=== PATIENT | female | born 1940 | race Caucasian/White ===

== ENCOUNTER 2016-09-09 14:37 | Emergency (ER) | payer OTHER ==
[~2016-09-09] VITALS: Ht 170.2 cm; Wt 78.0 kg
[~2016-09-09 14:37] MED LIST: AMIO200T33 PO; ASPI-231 PO; CLOP75TA41 PO; DIG025T PO; GABA300C8 PO; METF-312 PO; NOR10T PO
[2016-09-09 15:04] VITALS: BP 143/81
== END 2016-09-09 16:59 | disposition home or self-care (01) ==
LOC: ER 14:42
DX: L02.92 Furuncle, unspecified (principal); M19.90 Unspecified osteoarthritis, unspecified site; E11.9 Type 2 diabetes mellitus without complications; E78.5 Hyperlipidemia, unspecified; I10 Essential (primary) hypertension; F17.210 Nicotine dependence, cigarettes, uncomplicated; Z98.61 Coronary angioplasty status

== ENCOUNTER 2022-10-07 12:43 | Inpatient (IN) | payer OTHER ==
[~2022-10-07] VITALS: Ht 167.6 cm; Wt 63.6 kg
[~2022-10-07 12:43] MED LIST changes: -ASPI-231 PO; +ASPI1TAB20 PO; -CLOP75TA41 PO; +CLOP75TA70 PO; +GABA-1250 PO; -GABA300C8 PO; -METF-312 PO; +METF-370 PO
[2022-10-07 13:46] LABS: Basophils # (auto) 0.1 10 ^3/uL (0-0.2); Basophils % (auto) 1.4 % (0.0-2.0); Eosinophils # (auto) 0.1 10 ^3/uL (0-0.8); Eosinophils % (auto) 2.7 % (0.0-7.0); Hematocrit 48.9 % (36.0-46.0); Hemoglobin 16.2 g/dL (12.2-16.2); Lymphocytes # (auto) 0.9 10 ^3/uL (0.4-5.4); Mean Corpuscular Hemoglobin 31.8 pg (28.0-32.0); Mean Corpuscular Hgb Conc. 33.2 g/dL (32.0-36.0); Mean Corpuscular Volume 95.7 fL (80.0-100.0); Monocytes # (auto) 0.4 10 ^3/uL (0-1.3); Monocytes % (auto) 8.8 % (0.0-12.0); Neutrophils # (auto) 3.6 10 ^3/uL (1.6-8.6); Neutrophils % (auto) 70.1 % (37.0-80.0); Nucleated Red Blood Cells % 0.2 %; Red Blood Cells 5.11 10^6/uL (4.0-5.20); Red Cell Distribution Width 14.1 % (11.8-14.3); White Blood Cell 5.1 10^3/uL (4.4-10.8)
[2022-10-07 14:00] LABS: Albumin 3.6 g/dL (3.4-5.0); Calcium 8.6 mg/dL (8.5-10.1); Magnesium 2.6 mg/dL (1.6-2.6); Potassium 4.4 mmol/L (3.5-5.1)
[2022-10-07 14:02] LABS: INR 1.14 (0.9-1.15); Partial Thromboplastin Time 28.6 SEC (24.5-34.5)
[2022-10-07 14:03] LABS: BUN/Creatinine Ratio 12.8 (10.0-20.0); Bilirubin, Total 0.7 mg/dL (0.2-1.0); Total Protein 6.6 g/dL (6.4-8.2)
[2022-10-07] MEDS ORDERED: methylPREDNISolone SOD SUCC 40 MG/ML VL IV ONE (15:00)
[2022-10-07] MEDS ORDERED: IPRATROPIUM BROM 0.5 MG/2.5ML INH SOL NEB ONE (15:00)
[2022-10-07] MEDS ORDERED: SODIUM CHLORIDE 0.9% 1,000 ML IV ONE (15:00)
[2022-10-07] MEDS ORDERED: ALBUTEROL SULF 2.5 MG/0.5ML(0.5%) NEB SOLN NEB ONE (15:00)
[2022-10-07] MEDS ORDERED: HYDROcodone-ACET 5/325MG TAB PO PRN (15:30)
[2022-10-07] MEDS ORDERED: DOCUSATE SOD 100 MG CAP PO PRN (15:30)
[2022-10-07] MEDS ORDERED: NITROGLYCERIN 0.4 MG SL TAB SL PRN (15:30)
[2022-10-07] MEDS ORDERED: ONDANSETRON HCL 4 MG/2 ML VIAL IV PRN (15:30)
[2022-10-07] MEDS ORDERED: predniSONE 20 MG TAB PO ONE (15:30)
[2022-10-07] MEDS ORDERED: MORPHINE SULFATE INJ 2 MG/ml SYRG IV PRN (15:30)
[2022-10-07] MEDS ORDERED: ACETAMINOPHEN 325 MG TAB PO PRN (15:30)
[2022-10-07] MEDS ORDERED: GABAPENTIN 300 MG CAP PO SCH (22:00)
[2022-10-07] MEDS: HYDROcodone-ACET 10/325MG TAB PO PRN (22:02)
[2022-10-07] MEDS: SODIUM CHLOR 0.9% PF (SALINE LOCK) 10ML VIAL/SYR IV SCH (22:02)
[2022-10-08] MEDS: SODIUM CHLOR 0.9% PF (SALINE LOCK) 10ML VIAL/SYR IV SCH ×2 (05:53→13:40)
[2022-10-08] MEDS ORDERED: ENOXAPARIN SOD 40 MG/0.4 ML SYRINGE SC SCH (10:00)
[2022-10-08] MEDS ORDERED: AMIODARONE HCL 200 MG TAB PO SCH (10:00)
[2022-10-08] MEDS ORDERED: CLOPIDOGREL BISULFATE 75 MG TAB PO SCH (10:00)
[2022-10-08] MEDS ORDERED: DIGOXIN 0.25 MG TAB PO SCH (10:00)
[2022-10-08] MEDS ORDERED: ASPirin-EC 81 mg tab PO SCH (10:00)
[2022-10-08] MEDS: HYDROcodone-ACET 10/325MG TAB PO PRN (12:23)
[2022-10-08 16:00] VITALS: BP 143/65
== END 2022-10-08 17:50 | disposition home health service (06) | DRG 313 ==
LOC: EDBD 12:43 → ER 12:43 → TELE 16:38
PROVIDERS: ADMIT Internal Medicine; ATTEND Internal Medicine
DX: R07.89 Other chest pain (principal); J44.1 Chronic obstructive pulmonary disease with (acute) exacerbation; I25.10 Atherosclerotic heart disease of native coronary artery without angina pectoris; I11.0 Hypertensive heart disease with heart failure; I50.9 Heart failure, unspecified; I35.0 Nonrheumatic aortic (valve) stenosis; Z82.49 Family history of ischemic heart disease and other diseases of the circulatory system; Z87.891 Personal history of nicotine dependence; Z95.5 Presence of coronary angioplasty implant and graft
CPT/HCPCS: 36415; 70450; 71045; 80053; 83735; 83880; 84484; 85025; 85610; 85730; 93005; 93306; 94640; 96360; G0378; J2405

== ENCOUNTER 2023-03-25 13:08 | Inpatient (IN) | payer OTHER ==
[2023-03-25] VITALS (7 sets, daily range): BP systolic 99–117; BP diastolic 50–61; PULSE 87–173; RESP 18–30; TEMP 98.2; O2SAT 90–99
[~2023-03-25] VITALS: Ht 170.2 cm; Wt 129.5 kg
[2023-03-25 16:02] LABS: Basophils # (auto) 0 10 ^3/uL (0-0.2); Basophils % (auto) 0.8 % (0.0-2.0); Eosinophils # (auto) 0 10 ^3/uL (0-0.8); Hematocrit 46.3 % (36.0-46.0); Hemoglobin 15.4 g/dL (12.2-16.2); Lymphocytes # (auto) 0.3 10 ^3/uL (0.4-5.4); Lymphocytes % (auto) 5.2 % (10.0-50.0); Mean Corpuscular Hemoglobin 32.3 pg (28.0-32.0); Mean Corpuscular Hgb Conc. 33.2 g/dL (32.0-36.0); Mean Corpuscular Volume 97.2 fL (80.0-100.0); Monocytes # (auto) 0.7 10 ^3/uL (0-1.3); Monocytes % (auto) 11.6 % (0.0-12.0); Neutrophils # (auto) 4.8 10 ^3/uL (1.6-8.6); Neutrophils % (auto) 82.4 % (37.0-80.0); Nucleated Red Blood Cells % 0.3 %; Red Blood Cells 4.76 10^6/uL (4.0-5.20); Red Cell Distribution Width 15.3 % (11.8-14.3); White Blood Cell 5.9 10^3/uL (4.4-10.8)
[2023-03-25 16:13] LABS: Alanine Aminotransferase 80 U/L (7-40); Albumin 4.2 g/dL (3.2-4.8); Alkaline Phosphatase 129 U/L (46-116); Anion Gap 7 (5-15); Aspartate Aminotransferase 61 U/L (13-40); BUN/Creatinine Ratio 23.7 (10.0-20.0); Blood Urea Nitrogen 18 mg/dL (9-23); Calcium 9.1 mg/dL (8.5-10.1); Carbon Dioxide 26 mmol/L (20-30); Chloride 106 mmol/L (98-107); Glucose 158 mg/dL (74-106); Potassium 3.8 mmol/L (3.5-5.1); Sodium 139 mmol/L (136-145)
[2023-03-25 16:14] LABS: Bilirubin, Total 0.5 mg/dL (0.2-1.0); Total Protein 6.3 g/dL (5.7-8.2)
[2023-03-25 16:21] LABS: INR 1.15 (0.9-1.15); Partial Thromboplastin Time 30.5 SEC (24.5-34.5)
[2023-03-25] MEDS ORDERED: ALBUTEROL SULF 2.5 MG/0.5ML(0.5%) NEB SOLN HHN ONE (17:00)
[2023-03-25] MEDS ORDERED: methylPREDNISolone SOD SUCC 125 MG/2 ML VL IV ONE (17:00)
[2023-03-25] MEDS ORDERED: IPRATROPIUM BROM 0.5 MG/2.5ML INH SOL HHN ONE (17:00)
[2023-03-25] MEDS ORDERED: AMLO1TAB22 PO (18:14)
[2023-03-25] MEDS ORDERED: OXYB5TAB10 PO (18:14)
[2023-03-25] MEDS ORDERED: GABA-1251 PO (18:14)
[2023-03-25] MEDS ORDERED: ATOR20TA50 PO (18:14)
[2023-03-25] MEDS ORDERED: cefTRIAXone 1GM/50ML D5W 50 ML IV ONE (18:15)
[2023-03-25] MEDS ORDERED: AZITHROMYCIN 500MG/ 250ML 250 ML IV ONE (18:15)
[2023-03-25] MEDS ORDERED: ONDANSETRON HCL 4 MG/2 ML VIAL IV PRN (18:15)
[2023-03-25] MEDS ORDERED: ACETAMINOPHEN 325 MG TAB PO PRN (18:15)
[2023-03-25] MEDS ORDERED: hydrALAZINE HCL 20 MG/ML VL IV PRN (18:30)
[2023-03-25] MEDS ORDERED: METOPROLOL TARTRATE 1MG/1ML-5ML VIAL IV PRN (18:45)
[2023-03-25] MEDS ORDERED: LABETALOL HCL 5 MG/ML 4ML SYRINGE IV PRN (19:00)
[2023-03-25] MEDS ORDERED: MORPHINE SULFATE 4 MG/ML SYR/VIAL IV ONE (19:45)
[2023-03-25] MEDS ORDERED: DexAMETHasone SOD PHOS 10MG/1ML VIAL INJ IV ONE (19:45)
[2023-03-25] MEDS ORDERED: ONDANSETRON HCL 4 MG/2 ML VIAL IV ONE (19:45)
[2023-03-25] MEDS ORDERED: dilTIAZem 25 MG/5 ML VIAL IV ONE ×2 (19:45→21:15)
[2023-03-25] MEDS ORDERED: LORazepam 2MG/ML-1ML VIAL IV ONE (20:15)
[2023-03-25] MEDS ORDERED: FUROSEMIDE 20 MG/2 ML VIAL IV ONE (20:45)
[2023-03-25] MEDS ORDERED: dilTIAZem 125mg/125ml BAG KIT 125 ML IV SCH (21:00)
[2023-03-25] MEDS ORDERED: SODIUM CHLORIDE 0.9% 1,000 ML IV ONE (21:15)
[2023-03-25] MEDS: IPRATROPIUM BROM 0.5 MG/2.5ML INH SOL NEB SCH (21:31)
[2023-03-25] MEDS: LEVALBUTEROL HCL 1.25 MG/3 ML NEB NEB SCH (21:31)
[2023-03-25 21:38] LABS: COVID19 ANTIGEN SOFIA FIA NEGATIVE (NEGATIVE)
[2023-03-25 21:39] LABS: Rapid Influenza A Negative (Negative); Rapid Influenza B Negative (Negative)
[2023-03-25] MEDS ORDERED: ALBUTEROL SULF 2.5 MG/0.5ML(0.5%) NEB SOLN NEB SCH (22:00)
[2023-03-25] MEDS: OXYBUTYNIN CHL 5 MG TAB PO SCH (22:07)
[2023-03-25] MEDS: methylPREDNISolone SOD SUCC 40 MG/ML VL IV SCH (22:07)
[2023-03-25] MEDS ORDERED: IOHEXOL 350 MG/ML 100ML IJ ONE (22:51)
[2023-03-26] VITALS (48 sets, daily range): BP systolic 97–136; BP diastolic 44–72; PULSE 75–101; RESP 13–33; TEMP 97.7–98.7; O2SAT 82–100
[2023-03-26 05:35] LABS: Basophils # (auto) 0 10 ^3/uL (0-0.2); Basophils % (auto) 0.1 % (0.0-2.0); Eosinophils # (auto) 0 10 ^3/uL (0-0.8); Eosinophils % (auto) 0.1 % (0.0-7.0); Hematocrit 46.2 % (36.0-46.0); Hemoglobin 14.7 g/dL (12.2-16.2); Lymphocytes # (auto) 0.1 10 ^3/uL (0.4-5.4); Lymphocytes % (auto) 2.5 % (10.0-50.0); Mean Corpuscular Hemoglobin 32.1 pg (28.0-32.0); Mean Corpuscular Hgb Conc. 31.7 g/dL (32.0-36.0); Monocytes # (auto) 0.2 10 ^3/uL (0-1.3); Neutrophils # (auto) 5.3 10 ^3/uL (1.6-8.6); Neutrophils % (auto) 93.3 % (37.0-80.0); Red Blood Cells 4.57 10^6/uL (4.0-5.20); Red Cell Distribution Width 16.1 % (11.8-14.3); White Blood Cell 5.7 10^3/uL (4.4-10.8)
[2023-03-26 05:39] LABS: Alanine Aminotransferase 62 U/L (7-40); Albumin 3.8 g/dL (3.2-4.8); Alkaline Phosphatase 107 U/L (46-116); Anion Gap 6 (5-15); Aspartate Aminotransferase 39 U/L (13-40); BUN/Creatinine Ratio 11.8 (10.0-20.0); Bilirubin, Total 0.4 mg/dL (0.2-1.0); Blood Urea Nitrogen 10 mg/dL (9-23); Calcium 8.4 mg/dL (8.7-10.4); Carbon Dioxide 22 mmol/L (20-30); Chloride 109 mmol/L (98-107); Glucose 221 mg/dL (74-106); Potassium 4.6 mmol/L (3.5-5.1); Sodium 137 mmol/L (136-145); Total Protein 6.1 g/dL (5.7-8.2)
[2023-03-26] MEDS: methylPREDNISolone SOD SUCC 40 MG/ML VL IV SCH ×3 (06:04→21:19)
[2023-03-26] MEDS: OXYBUTYNIN CHL 5 MG TAB PO SCH ×3 (06:04→21:19)
[2023-03-26] MEDS: IPRATROPIUM BROM 0.5 MG/2.5ML INH SOL NEB SCH ×5 (07:27→22:00)
[2023-03-26] MEDS: LEVALBUTEROL HCL 1.25 MG/3 ML NEB NEB SCH ×5 (07:28→22:00)
[2023-03-26] MEDS ORDERED: amLODIPine BESYLATE 5 MG TAB PO SCH (10:00)
[2023-03-26] MEDS ORDERED: FUROSEMIDE 20 MG/2 ML VIAL IV SCH ×2 (10:00)
[2023-03-26] MEDS ORDERED: ATORVASTATIN 20 MG TAB PO SCH (10:00)
[2023-03-26] MEDS: AZITHROMYCIN 500MG/ 250ML 250 ML IV SCH (10:06)
[2023-03-26] MEDS: cefTRIAXone 1GM/50ML D5W 50 ML IV SCH (10:06)
[2023-03-26] MEDS: GABAPENTIN 400 MG CAP PO SCH (10:07)
[2023-03-26] MEDS: CLOPIDOGREL BISULFATE 75 MG TAB PO SCH (10:07)
[2023-03-26] MEDS: PANTOPRAZOLE 40 MG TAB PO SCH (10:07)
[2023-03-26] MEDS: AMIODARONE HCL 200 MG TAB PO SCH (10:07)
[2023-03-26] MEDS: ASPirin-EC 81 mg tab PO SCH (10:08)
[2023-03-26] MEDS: guaiFENesin 200 MG/10 ML UD GT PRN ×2 (10:09→19:59)
[2023-03-26] MEDS ORDERED: FUROSEMIDE 20 MG/2 ML VIAL IV ONE (11:45)
[2023-03-26] MEDS ORDERED: LIDOCAINE 2% JELLY 11ml (GLYDO) UR ONE (11:45)
[2023-03-26] MEDS ORDERED: NICOTINE 14 MG/24HR TOPICAL PATCH TD ONE (13:30)
[2023-03-26] MEDS ORDERED: ENOXAPARIN SOD 100 MG/1 ML SYRINGE SC ONE ×2 (13:30→22:00)
[2023-03-26] MEDS: HYDROcodone-ACET 5/325MG TAB PO PRN ×2 (14:20→19:59)
[2023-03-26 17:10] LABS: LDL Cholesterol 51 mg/dL (< 100); Triglycerides 81 mg/dL (< 150)
[2023-03-26 17:12] LABS: Cholesterol 106 mg/dL (< 200); HDL Cholesterol 42 mg/dL (40-59)
[2023-03-26] MEDS: FUROSEMIDE 40 MG/4 ML VIAL IV SCH (18:20)
[2023-03-26] MEDS: METOPROLOL TARTRATE 25 MG TAB PO SCH (21:20)
[2023-03-26 21:43] LABS: Urine Bacteria NONE SEEN /hpf (None Seen); Urine Blood Negative /uL (Negative); Urine Clarity Clear (Clear); Urine Color Colorless (Yellow); Urine Hyaline Cast FEW /lpf (0 - 2); Urine Protein, UAD Negative (Negative); Urine Urobilinogen Normal (Negative); Urine WBC <1 /hpf (0 - 5)
[2023-03-26] MEDS ORDERED: ENOXAPARIN SOD 100 MG/1 ML SYRINGE SC SCH (22:00)
[2023-03-27] VITALS (27 sets, daily range): BP systolic 109–156; BP diastolic 57–77; PULSE 75–99; RESP 12–33; TEMP 97.2–99; O2SAT 92–100
[2023-03-27] MEDS: HYDROcodone-ACET 5/325MG TAB PO PRN ×3 (00:40→21:48)
[2023-03-27] MEDS: OXYBUTYNIN CHL 5 MG TAB PO SCH ×3 (05:53→21:35)
[2023-03-27] MEDS: methylPREDNISolone SOD SUCC 40 MG/ML VL IV SCH ×3 (05:55→21:36)
[2023-03-27] MEDS: FUROSEMIDE 40 MG/4 ML VIAL IV SCH ×2 (05:56→18:39)
[2023-03-27] MEDS: LEVALBUTEROL HCL 1.25 MG/3 ML NEB NEB SCH ×5 (06:38→22:56)
[2023-03-27] MEDS: IPRATROPIUM BROM 0.5 MG/2.5ML INH SOL NEB SCH ×5 (06:38→22:56)
[2023-03-27 06:47] LABS: Basophils # (auto) 0 10 ^3/uL (0-0.2); Basophils % (auto) 0.2 % (0.0-2.0); Eosinophils # (auto) 0 10 ^3/uL (0-0.8); Hematocrit 48.8 % (36.0-46.0); Hemoglobin 15.9 g/dL (12.2-16.2); Lymphocytes # (auto) 0.2 10 ^3/uL (0.4-5.4); Lymphocytes % (auto) 2.5 % (10.0-50.0); Mean Corpuscular Hemoglobin 31.9 pg (28.0-32.0); Mean Corpuscular Hgb Conc. 32.6 g/dL (32.0-36.0); Mean Corpuscular Volume 97.9 fL (80.0-100.0); Monocytes # (auto) 0.6 10 ^3/uL (0-1.3); Monocytes % (auto) 6.7 % (0.0-12.0); Neutrophils # (auto) 8.2 10 ^3/uL (1.6-8.6); Neutrophils % (auto) 90.6 % (37.0-80.0); Nucleated Red Blood Cells % 0.2 %; Red Blood Cells 4.98 10^6/uL (4.0-5.20); Red Cell Distribution Width 15.4 % (11.8-14.3); White Blood Cell 9.1 10^3/uL (4.4-10.8)
[2023-03-27 06:56] LABS: Anion Gap 4 (5-15); Carbon Dioxide 32 mmol/L (20-30); Chloride 104 mmol/L (98-107); Potassium 4.1 mmol/L (3.5-5.1); Sodium 140 mmol/L (136-145)
[2023-03-27 07:01] LABS: INR 1.13 (0.9-1.15); Prothrombin Time 11.8 sec (9.3-11.8)
[2023-03-27 07:02] LABS: BUN/Creatinine Ratio 13.7 (10.0-20.0); Blood Urea Nitrogen 10 mg/dL (9-23); Glucose 141 mg/dL (74-106)
[2023-03-27] MEDS ORDERED: DEXTROSE (50%) 50ML SYRG IV PRN (09:15)
[2023-03-27] MEDS: AZITHROMYCIN 500MG/ 250ML 250 ML IV SCH (09:52)
[2023-03-27] MEDS: CLOPIDOGREL BISULFATE 75 MG TAB PO SCH (09:52)
[2023-03-27] MEDS: cefTRIAXone 1GM/50ML D5W 50 ML IV SCH (09:52)
[2023-03-27] MEDS: ASPirin-EC 81 mg tab PO SCH (09:52)
[2023-03-27] MEDS: ATORVASTATIN 20 MG TAB PO SCH (10:00)
[2023-03-27] MEDS: AMIODARONE HCL 200 MG TAB PO SCH (10:01)
[2023-03-27] MEDS: GABAPENTIN 400 MG CAP PO SCH (10:01)
[2023-03-27] MEDS: NICOTINE 14 MG/24HR TOPICAL PATCH TD SCH (10:01)
[2023-03-27] MEDS: METOPROLOL TARTRATE 25 MG TAB PO SCH ×2 (10:01→21:35)
[2023-03-27] MEDS: PANTOPRAZOLE 40 MG TAB PO SCH (10:01)
[2023-03-27] MEDS: InsuLIN REG 1unit/0.01ml Soln (100units/ml) SC SCH ×3 (11:30→23:44)
[2023-03-27] MEDS: ACCU-CHEK COMFORT CURVE STRIP VI SCH ×3 (11:30→23:45)
[2023-03-27] MEDS ORDERED: fentaNYL CITRATE 100 MCG/2 ML VL ONE (15:42)
[2023-03-27] MEDS ORDERED: VERAPAMIL 2.5MG/ML INJ 2ML VIAL IV ONE (15:42)
[2023-03-27] MEDS ORDERED: HEPARIN SODIUM (PORCINE) 5000 UNITS/ML 1ML VIAL ONE (15:42)
[2023-03-27] MEDS ORDERED: ANGIOMAX 250 MG VIAL IV ONE (15:42)
[2023-03-27] MEDS ORDERED: LIDOCAINE 2%HCL (LOCAL ANESTH.) INJ 20ML MDV ONE (15:43)
[2023-03-27] MEDS ORDERED: SODIUM CHL 0.9% 0 ML ONE (15:43)
[2023-03-27] MEDS ORDERED: MIDAZOLAM HCL 2MG/2ML 2ml VIAL (1mg/ml) ONE (15:43)
[2023-03-27] MEDS ORDERED: IODIXANOL 320MG/ML 100ML BTL IV ONE (15:43)
[2023-03-28] VITALS (41 sets, daily range): BP systolic 78–147; BP diastolic 53–84; PULSE 59–160; RESP 14–41; TEMP 97.3–98.4; O2SAT 83–99
[2023-03-28] MEDS ORDERED: HALOPERIDOL LACTATE 5 MG/ML INJ VIAL IM ONE (01:00)
[2023-03-28] MEDS ORDERED: HALOPERIDOL LACTATE 5 MG/ML INJ VIAL ONE (01:04)
[2023-03-28] MEDS ORDERED: LORazepam 2MG/ML-1ML VIAL IV ONE ×2 (03:15→06:45)
[2023-03-28] MEDS: methylPREDNISolone SOD SUCC 40 MG/ML VL IV SCH ×3 (05:58→21:08)
[2023-03-28] MEDS: OXYBUTYNIN CHL 5 MG TAB PO SCH ×3 (06:00→21:08)
[2023-03-28] MEDS: FUROSEMIDE 40 MG/4 ML VIAL IV SCH ×2 (06:00→17:50)
[2023-03-28 06:18] LABS: Base Excess 7.7 mmol/L (-2.0-2.0)
[2023-03-28] MEDS ORDERED: AMIODARONE 450mg/250ml AE 250 ML IV ONE (06:34)
[2023-03-28] MEDS: ACCU-CHEK COMFORT CURVE STRIP VI SCH ×4 (06:41→22:00)
[2023-03-28] MEDS ORDERED: AMIODARONE BOLUS KIT 100 ML IV ONE (06:45)
[2023-03-28] MEDS: InsuLIN REG 1unit/0.01ml Soln (100units/ml) SC SCH ×4 (06:47→21:13)
[2023-03-28] MEDS: AMIODARONE 450mg/250ml AE 250 ML IV SCH ×3 (07:08→12:32)
[2023-03-28] MEDS: cefTRIAXone 1GM/50ML D5W 50 ML IV SCH (09:10)
[2023-03-28] MEDS: AZITHROMYCIN 500MG/ 250ML 250 ML IV SCH (09:10)
[2023-03-28 09:23] LABS: Basophils # (auto) 0 10 ^3/uL (0-0.2); Basophils % (auto) 0.1 % (0.0-2.0); Eosinophils # (auto) 0 10 ^3/uL (0-0.8); Hematocrit 45.1 % (36.0-46.0); Hemoglobin 14.6 g/dL (12.2-16.2); Lymphocytes # (auto) 0.4 10 ^3/uL (0.4-5.4); Lymphocytes % (auto) 6.3 % (10.0-50.0); Mean Corpuscular Hemoglobin 31.6 pg (28.0-32.0); Mean Corpuscular Hgb Conc. 32.4 g/dL (32.0-36.0); Mean Corpuscular Volume 97.6 fL (80.0-100.0); Monocytes # (auto) 0.6 10 ^3/uL (0-1.3); Neutrophils # (auto) 5.8 10 ^3/uL (1.6-8.6); Neutrophils % (auto) 84.6 % (37.0-80.0); Nucleated Red Blood Cells % 0.1 %; Red Blood Cells 4.62 10^6/uL (4.0-5.20); Red Cell Distribution Width 14.8 % (11.8-14.3); White Blood Cell 6.9 10^3/uL (4.4-10.8)
[2023-03-28] MEDS: GABAPENTIN 400 MG CAP PO SCH (09:26)
[2023-03-28] MEDS: ASPirin-EC 81 mg tab PO SCH (09:26)
[2023-03-28] MEDS: CLOPIDOGREL BISULFATE 75 MG TAB PO SCH (09:26)
[2023-03-28] MEDS: ATORVASTATIN 20 MG TAB PO SCH (09:27)
[2023-03-28 09:35] LABS: Chloride 100 mmol/L (98-107); Potassium 3.6 mmol/L (3.5-5.1); Sodium 140 mmol/L (136-145)
[2023-03-28 09:36] LABS: Anion Gap 3 (5-15); Carbon Dioxide 37 mmol/L (20-30)
[2023-03-28 09:37] LABS: Calcium 9.2 mg/dL (8.5-10.1)
[2023-03-28] MEDS: IPRATROPIUM BROM 0.5 MG/2.5ML INH SOL NEB SCH ×5 (09:38→22:00)
[2023-03-28] MEDS: LEVALBUTEROL HCL 1.25 MG/3 ML NEB NEB SCH ×5 (09:38→22:00)
[2023-03-28 09:42] LABS: BUN/Creatinine Ratio 20.2 (10.0-20.0); Blood Urea Nitrogen 17 mg/dL (9-23); Glucose 184 mg/dL (74-106)
[2023-03-28] MEDS: NICOTINE 14 MG/24HR TOPICAL PATCH TD SCH (09:59)
[2023-03-28] MEDS ORDERED: AMIODARONE HCL 200 MG TAB PO SCH (10:00)
[2023-03-28] MEDS: PANTOPRAZOLE 40 MG TAB PO SCH (10:58)
[2023-03-28] MEDS: METOPROLOL TARTRATE 25 MG TAB PO SCH ×2 (11:26→21:08)
[2023-03-28] MEDS ORDERED: LORazepam 2MG/ML-1ML VIAL IV PRN (11:30)
[2023-03-28] MEDS ORDERED: POTASSIUM EFFERVESENT TAB 25 MEQ PO ONE (13:30)
[2023-03-28 15:59] LABS: Urine Bacteria NONE SEEN /hpf (None Seen); Urine Blood 2+ /uL (Negative); Urine Clarity Clear (Clear); Urine Color Yellow (Yellow); Urine Hyaline Cast FEW /lpf (0 - 2); Urine Mucus FEW (None Seen); Urine Protein, UAD TRACE (Negative); Urine Specific Gravity 1.024 (1.001-1.035); Urine Urobilinogen Normal (Negative); Urine WBC 4 /hpf (0 - 5)
[2023-03-28] MEDS: DOCUSATE SOD 100 MG CAP PO PRN (18:34)
[2023-03-28] MEDS: HYDROcodone-ACET 5/325MG TAB PO PRN (21:09)
[2023-03-29] VITALS (26 sets, daily range): BP systolic 131–171; BP diastolic 54–83; PULSE 59–86; RESP 15–29; TEMP 97.5–97.9; O2SAT 82–100
[2023-03-29] MEDS: HYDROcodone-ACET 5/325MG TAB PO PRN ×3 (02:03→21:47)
[2023-03-29] MEDS: AMIODARONE 450mg/250ml AE 250 ML IV SCH (03:45)
[2023-03-29 05:36] LABS: Chloride 101 mmol/L (98-107); Sodium 137 mmol/L (136-145)
[2023-03-29 05:37] LABS: Anion Gap 3 (5-15); Calcium 8.8 mg/dL (8.7-10.4); Carbon Dioxide 33 mmol/L (20-30)
[2023-03-29 05:42] LABS: BUN/Creatinine Ratio 16.9 (10.0-20.0); Blood Urea Nitrogen 11 mg/dL (9-23); Glucose 189 mg/dL (74-106)
[2023-03-29 05:43] LABS: Magnesium 2.6 mg/dL (1.6-2.6)
[2023-03-29] MEDS: FUROSEMIDE 40 MG/4 ML VIAL IV SCH (06:20)
[2023-03-29] MEDS: OXYBUTYNIN CHL 5 MG TAB PO SCH ×3 (06:20→21:47)
[2023-03-29] MEDS: ACCU-CHEK COMFORT CURVE STRIP VI SCH ×4 (06:21→21:41)
[2023-03-29] MEDS: InsuLIN REG 1unit/0.01ml Soln (100units/ml) SC SCH ×4 (06:27→21:41)
[2023-03-29 07:49] LABS: Basophils # (auto) 0 10 ^3/uL (0-0.2); Basophils % (auto) 0.1 % (0.0-2.0); Eosinophils # (auto) 0 10 ^3/uL (0-0.8); Hematocrit 50.5 % (36.0-46.0); Hemoglobin 16.6 g/dL (12.2-16.2); Lymphocytes # (auto) 0.5 10 ^3/uL (0.4-5.4); Lymphocytes % (auto) 7.4 % (10.0-50.0); Mean Corpuscular Hemoglobin 31.7 pg (28.0-32.0); Mean Corpuscular Volume 96.2 fL (80.0-100.0); Monocytes # (auto) 0.7 10 ^3/uL (0-1.3); Monocytes % (auto) 9.5 % (0.0-12.0); Neutrophils # (auto) 5.7 10 ^3/uL (1.6-8.6); Nucleated Red Blood Cells % 0.4 %; Red Blood Cells 5.25 10^6/uL (4.0-5.20); Red Cell Distribution Width 15.3 % (11.8-14.3); White Blood Cell 6.9 10^3/uL (4.4-10.8)
[2023-03-29] MEDS: LEVALBUTEROL HCL 1.25 MG/3 ML NEB NEB SCH ×5 (08:00→23:41)
[2023-03-29] MEDS: IPRATROPIUM BROM 0.5 MG/2.5ML INH SOL NEB SCH ×5 (08:00→23:41)
[2023-03-29] MEDS: methylPREDNISolone SOD SUCC 40 MG/ML VL IV SCH (08:20)
[2023-03-29] MEDS: cefTRIAXone 1GM/50ML D5W 50 ML IV SCH (08:20)
[2023-03-29] MEDS: AZITHROMYCIN 500MG/ 250ML 250 ML IV SCH (08:20)
[2023-03-29] MEDS: PANTOPRAZOLE 40 MG TAB PO SCH (08:24)
[2023-03-29] MEDS: GABAPENTIN 400 MG CAP PO SCH (08:24)
[2023-03-29] MEDS: CLOPIDOGREL BISULFATE 75 MG TAB PO SCH (08:24)
[2023-03-29] MEDS: ATORVASTATIN 20 MG TAB PO SCH (08:24)
[2023-03-29] MEDS: ASPirin-EC 81 mg tab PO SCH (08:24)
[2023-03-29] MEDS: METOPROLOL TARTRATE 25 MG TAB PO SCH ×2 (08:24→21:46)
[2023-03-29] MEDS: DOCUSATE SOD 100 MG CAP PO PRN ×2 (08:51→21:55)
[2023-03-29] MEDS ORDERED: POLYETHYLENE GLYCOL 17 GM PWDR PO PRN (09:00)
[2023-03-29] MEDS: NICOTINE 14 MG/24HR TOPICAL PATCH TD SCH (09:05)
[2023-03-29] MEDS ORDERED: AMIODARONE HCL 200 MG TAB ONE ×2 (09:29→21:49)
[2023-03-29] MEDS ORDERED: POLYETHYLENE GLYCOL 17 GM PWDR ONE (09:29)
[2023-03-29] MEDS: AMIODARONE HCL 200 MG TAB PO SCH ×2 (09:30→21:49)
[2023-03-29] MEDS ORDERED: predniSONE 20 MG TAB PO ONE (09:45)
[2023-03-30] VITALS (10 sets, daily range): BP systolic 144–151; BP diastolic 73–79; PULSE 60–108; RESP 16–20; TEMP 36.6; O2SAT 95–100
[2023-03-30] MEDS: HYDROcodone-ACET 5/325MG TAB PO PRN ×3 (02:08→11:27)
[2023-03-30] MEDS: OXYBUTYNIN CHL 5 MG TAB PO SCH ×2 (06:11→14:00)
[2023-03-30] MEDS: ACCU-CHEK COMFORT CURVE STRIP VI SCH ×2 (06:12→12:52)
[2023-03-30] MEDS: InsuLIN REG 1unit/0.01ml Soln (100units/ml) SC SCH ×2 (06:12→12:52)
[2023-03-30] MEDS: LEVALBUTEROL HCL 1.25 MG/3 ML NEB NEB SCH ×3 (06:56→14:07)
[2023-03-30] MEDS: IPRATROPIUM BROM 0.5 MG/2.5ML INH SOL NEB SCH ×3 (06:56→14:07)
[2023-03-30] MEDS ORDERED: POLYETHYLENE GLYCOL 17 GM PWDR PO ONE (09:15)
[2023-03-30] MEDS ORDERED: CLOPIDOGREL BISULFATE 75 MG TAB ONE (09:19)
[2023-03-30] MEDS ORDERED: AMIODARONE HCL 200 MG TAB ONE (09:19)
[2023-03-30] MEDS ORDERED: GABAPENTIN 400 MG CAP ONE (09:19)
[2023-03-30] MEDS ORDERED: METOPROLOL TARTRATE 25 MG TAB ONE (09:19)
[2023-03-30] MEDS ORDERED: cefTRIAXone 1GM/50ML D5W 50 ML IV ONE (09:20)
[2023-03-30] MEDS ORDERED: PANTOPRAZOLE 40 MG TAB PO ONE (09:20)
[2023-03-30] MEDS ORDERED: AZITHROMYCIN 500MG/ 250ML 250 ML IV ONE (09:20)
[2023-03-30] MEDS ORDERED: ATORVASTATIN 20 MG TAB ONE (09:20)
[2023-03-30] MEDS ORDERED: ASPirin 81 mg TAB ONE (09:20)
[2023-03-30] MEDS ORDERED: POLYETHYLENE GLYCOL 17 GM PWDR ONE (09:52)
[2023-03-30] MEDS: cefTRIAXone 1GM/50ML D5W 50 ML IV SCH (09:57)
[2023-03-30] MEDS: NICOTINE 14 MG/24HR TOPICAL PATCH TD SCH (09:58)
[2023-03-30] MEDS: ATORVASTATIN 20 MG TAB PO SCH (09:59)
[2023-03-30] MEDS: AMIODARONE HCL 200 MG TAB PO SCH (09:59)
[2023-03-30] MEDS: CLOPIDOGREL BISULFATE 75 MG TAB PO SCH (10:00)
[2023-03-30] MEDS: GABAPENTIN 400 MG CAP PO SCH (10:00)
[2023-03-30] MEDS: PANTOPRAZOLE 40 MG TAB PO SCH (10:00)
[2023-03-30] MEDS: METOPROLOL TARTRATE 25 MG TAB PO SCH (10:00)
[2023-03-30] MEDS ORDERED: ASPirin-EC 81 mg tab PO ONE (10:06)
[2023-03-30] MEDS: ASPirin-EC 81 mg tab PO SCH (10:07)
[2023-03-30 10:18] LABS: Basophils # (auto) 0 10 ^3/uL (0-0.2); Basophils % (auto) 0.1 % (0.0-2.0); Eosinophils # (auto) 0 10 ^3/uL (0-0.8); Eosinophils % (auto) 0.1 % (0.0-7.0); Hematocrit 49.4 % (36.0-46.0); Hemoglobin 16.5 g/dL (12.2-16.2); Lymphocytes # (auto) 0.8 10 ^3/uL (0.4-5.4); Lymphocytes % (auto) 11.2 % (10.0-50.0); Mean Corpuscular Hgb Conc. 33.5 g/dL (32.0-36.0); Mean Corpuscular Volume 95.7 fL (80.0-100.0); Monocytes # (auto) 0.9 10 ^3/uL (0-1.3); Monocytes % (auto) 12.8 % (0.0-12.0); Neutrophils # (auto) 5.1 10 ^3/uL (1.6-8.6); Neutrophils % (auto) 75.8 % (37.0-80.0); Nucleated Red Blood Cells % 0.2 %; Red Blood Cells 5.16 10^6/uL (4.0-5.20); Red Cell Distribution Width 14.8 % (11.8-14.3); White Blood Cell 6.8 10^3/uL (4.4-10.8)
[2023-03-30 10:26] LABS: Calcium 9.2 mg/dL (8.5-10.1)
[2023-03-30 10:30] LABS: Glucose 182 mg/dL (74-106)
[2023-03-30 10:31] LABS: BUN/Creatinine Ratio 14.3 (10.0-20.0); Blood Urea Nitrogen 10 mg/dL (9-23)
[2023-03-30 10:36] LABS: Chloride 100 mmol/L (98-107); Potassium 3.6 mmol/L (3.5-5.1)
[2023-03-30 10:46] LABS: Anion Gap 0 (5-15); Carbon Dioxide 37 mmol/L (20-30); Sodium 137 mmol/L (136-145)
[2023-03-30] MEDS: AZITHROMYCIN 500MG/ 250ML 250 ML IV SCH (11:13)
[2023-03-30] MEDS ORDERED: DOCUSATE SOD 100 MG CAP PO ONE (11:26)
[2023-03-30] MEDS ORDERED: HYDROcodone-ACET 5/325MG TAB ONE (11:26)
[2023-03-30] MEDS: DOCUSATE SOD 100 MG CAP PO PRN (11:27)
[2023-03-30] MEDS ORDERED: MET25T PO (12:20)
[2023-03-30] MEDS ORDERED: LACTULOSE 20Gm/30ML SOLN PO ONE (12:30)
[2023-03-30] MEDS ORDERED: LACTULOSE 20Gm/30ML SOLN ONE (12:47)
[2023-03-30] MEDS ORDERED: InsuLIN REG 1unit/0.01ml Soln (100units/ml) ONE (12:47)
== END 2023-03-30 17:58 | disposition home or self-care (01) | DRG 286 ==
LOC: ER 13:08 → EDBD 13:08 → OVERFLOW 18:12 → TELE 22:27 → DOU IN ICU 23:37 → ICU CENTRL 23:55 → DOU IN ICU 03-27 02:56 → TELE-WESTW 03-29 23:13
PROVIDERS: ADMIT Internal Medicine; ATTEND Student in an Organized Health Care Education/Training Program
PROC: 4A023N8 Measurement of Cardiac Sampling and Pressure, Bilateral, Percutaneous Approach (ICD-10-PCS; principal; 2023-03-27)
PROC: B211YZZ Fluoroscopy of Multiple Coronary Arteries using Other Contrast (ICD-10-PCS; 2023-03-27)
PROC: B215YZZ Fluoroscopy of Left Heart using Other Contrast (ICD-10-PCS; 2023-03-27)
DX: I11.0 Hypertensive heart disease with heart failure (principal); I50.43 Acute on chronic combined systolic (congestive) and diastolic (congestive) heart failure; J15.69 Pneumonia due to other Gram-negative bacteria; J96.01 Acute respiratory failure with hypoxia; J15.9 Unspecified bacterial pneumonia; J44.1 Chronic obstructive pulmonary disease with (acute) exacerbation; I25.10 Atherosclerotic heart disease of native coronary artery without angina pectoris; E78.5 Hyperlipidemia, unspecified; F17.210 Nicotine dependence, cigarettes, uncomplicated; I08.3 Combined rheumatic disorders of mitral, aortic and tricuspid valves; N28.1 Cyst of kidney, acquired; Z20.822 Contact with and (suspected) exposure to COVID-19; I48.0 Paroxysmal atrial fibrillation; I27.20 Pulmonary hypertension, unspecified; J43.9 Emphysema, unspecified; M19.90 Unspecified osteoarthritis, unspecified site; E11.51 Type 2 diabetes mellitus with diabetic peripheral angiopathy without gangrene; E11.42 Type 2 diabetes mellitus with diabetic polyneuropathy; Z79.02 Long term (current) use of antithrombotics/antiplatelets; Z80.0 Family history of malignant neoplasm of digestive organs; Z82.49 Family history of ischemic heart disease and other diseases of the circulatory system; Z90.710 Acquired absence of both cervix and uterus; Z95.3 Presence of xenogenic heart valve; Z95.5 Presence of coronary angioplasty implant and graft; I25.2 Old myocardial infarction
CPT/HCPCS: 36415; 70450; 71045; 71275; 80048; 80053; 80061; 81001; 82962; 83036; 83735; 83880; 84443; 84484; 85025; 85379; 85610; 85730; 87040; 87081; 87086; 87426; 87804; 93005; 93306; 94640; 94644; 96361; 96365; 96367; 96375; 96376; 99152; 99291; G0378; J0696; J1100; J1815; J2250; J2405; J3490; J7042; Q9967

== ENCOUNTER → 2023-09-16 | Outpatient (CLI) | payer OTHER ==
[~2023-09-16] MED LIST changes: +AMLO1TAB22 PO; +ATOR20TA50 PO; -DIG025T PO; -GABA-1250 PO; +GABA-1251 PO; +MET25T PO; +OXYB5TAB14 PO
== END | disposition home or self-care (01) ==
LOC: Rad HDHVI 15:33
PROVIDERS: ATTEND Internal Medicine Cardiovascular Disease
DX: I70.203 Unspecified atherosclerosis of native arteries of extremities, bilateral legs (principal); M79.606 Pain in leg, unspecified
CPT/HCPCS: 93925

== ENCOUNTER → 2023-09-18 | Outpatient (CLI) | payer OTHER ==
[~2023-09-18] VITALS: Ht 170.2 cm; Wt 65.8 kg
[~2023-09-18] MED LIST changes: +ADENOSINE 55 MG in GIVE UN-DILUTED 0 ML IV ONE; +ADENOSINE 90 MG/30 ML INJ IV ONE
== END | disposition home or self-care (01) ==
LOC: Rad HDHVI 14:04
PROVIDERS: ATTEND Internal Medicine Cardiovascular Disease
DX: I25.10 Atherosclerotic heart disease of native coronary artery without angina pectoris (principal); I10 Essential (primary) hypertension; I48.91 Unspecified atrial fibrillation; E78.5 Hyperlipidemia, unspecified; R07.89 Other chest pain; E11.9 Type 2 diabetes mellitus without complications
CPT/HCPCS: 78452; 93005; 96374; 96375; A9500; J0153

== ENCOUNTER → 2023-09-23 | Outpatient (CLI) | payer OTHER ==
[~2023-09-23] MED LIST changes: -ADENOSINE 55 MG in GIVE UN-DILUTED 0 ML IV ONE; -ADENOSINE 90 MG/30 ML INJ IV ONE
== END | disposition home or self-care (01) ==
LOC: Rad HDHVI 15:33
PROVIDERS: ATTEND Internal Medicine Cardiovascular Disease
DX: I08.8 Other rheumatic multiple valve diseases (principal); I10 Essential (primary) hypertension
CPT/HCPCS: 93306

== ENCOUNTER 2023-10-04 22:39 | Inpatient (IN) | payer OTHER ==
[~2023-10-04] VITALS: Ht 170.2 cm; Wt 70.1 kg
[2023-10-04 23:03] LABS: Basophils # (auto) 0.1 10 ^3/uL (0-0.2); Basophils % (auto) 0.8 % (0.0-2.0); Eosinophils # (auto) 0.3 10 ^3/uL (0-0.8); Eosinophils % (auto) 3.6 % (0.0-7.0); Hematocrit 47.6 % (36.0-46.0); Hemoglobin 15.8 g/dL (12.2-16.2); Lymphocytes # (auto) 1.1 10 ^3/uL (0.4-5.4); Lymphocytes % (auto) 13.2 % (10.0-50.0); Mean Corpuscular Hemoglobin 31.2 pg (28.0-32.0); Mean Corpuscular Hgb Conc. 33.2 g/dL (32.0-36.0); Mean Corpuscular Volume 93.9 fL (80.0-100.0); Monocytes # (auto) 0.7 10 ^3/uL (0-1.3); Monocytes % (auto) 8.3 % (0.0-12.0); Neutrophils # (auto) 6.4 10 ^3/uL (1.6-8.6); Neutrophils % (auto) 74.1 % (37.0-80.0); Red Blood Cells 5.07 10^6/uL (4.0-5.20); Red Cell Distribution Width 15.6 % (11.8-14.3); White Blood Cell 8.6 10^3/uL (4.4-10.8)
[2023-10-04 23:19] LABS: INR 1.07 (0.9-1.15); Partial Thromboplastin Time 25.4 SEC (24.5-34.5); Prothrombin Time 11.3 sec (9.3-11.8)
[2023-10-04 23:42] LABS: Alanine Aminotransferase 16 U/L (7-40); Albumin 4.4 g/dL (3.2-4.8); Alkaline Phosphatase 102 U/L (46-116); Anion Gap 9 (5-15); Aspartate Aminotransferase 17 U/L (13-40); BUN/Creatinine Ratio 14.8 (10.0-20.0); Blood Urea Nitrogen 12 mg/dL (9-23); Calcium 10.2 mg/dL (8.5-10.1); Carbon Dioxide 23 mmol/L (20-30); Chloride 110 mmol/L (98-107); Glucose 106 mg/dL (74-106); Magnesium 2.1 mg/dL (1.6-2.6); Potassium 4.1 mmol/L (3.5-5.1); Sodium 142 mmol/L (136-145)
[2023-10-04 23:43] LABS: Bilirubin, Total 0.7 mg/dL (0.2-1.0); Total Protein 7.1 g/dL (5.7-8.2)
[2023-10-04 23:50] VITALS: PULSE 80; RESP 16
[2023-10-05] VITALS (9 sets, daily range): BP systolic 114–150; BP diastolic 62–80; PULSE 80–95; RESP 14–18; TEMP 97.5–97.9; O2SAT 93–97
[2023-10-05] MEDS: ACETAMINOPHEN 325 MG TAB PO ONE (00:52)
[2023-10-05] MEDS: NITROGLYCERIN 0.4 MG SL TAB SL ONE (01:05)
[2023-10-05] MEDS: GLUCAGON EMERG KIT 1mg/1ml IM ONE (01:06)
[2023-10-05] MEDS ORDERED: DOCUSATE SOD 100 MG CAP PO PRN (07:15)
[2023-10-05] MEDS ORDERED: HYDROcodone-ACET 5/325MG TAB PO PRN (07:15)
[2023-10-05] MEDS ORDERED: MORPHINE SULFATE INJ 2 MG/ml SYRG IV PRN ×2 (07:15→08:00)
[2023-10-05] MEDS ORDERED: hydrALAZINE HCL 20 MG/ML VL IV PRN (07:15)
[2023-10-05] MEDS ORDERED: ACETAMINOPHEN 325 MG TAB PO PRN (07:15)
[2023-10-05] MEDS ORDERED: ONDANSETRON HCL 4 MG/2 ML VIAL IV PRN (07:15)
[2023-10-05] MEDS ORDERED: DEXTROSE (50%) 50ML SYRG IV PRN (07:30)
[2023-10-05 07:50] LABS: Basophils # (auto) 0.1 10 ^3/uL (0-0.2); Basophils % (auto) 0.7 % (0.0-2.0); Eosinophils # (auto) 0.1 10 ^3/uL (0-0.8); Eosinophils % (auto) 0.6 % (0.0-7.0); Hematocrit 46.8 % (36.0-46.0); Hemoglobin 15.4 g/dL (12.2-16.2); Lymphocytes # (auto) 0.6 10 ^3/uL (0.4-5.4); Lymphocytes % (auto) 7.8 % (10.0-50.0); Mean Corpuscular Hemoglobin 30.8 pg (28.0-32.0); Mean Corpuscular Hgb Conc. 32.9 g/dL (32.0-36.0); Mean Corpuscular Volume 93.5 fL (80.0-100.0); Monocytes # (auto) 0.5 10 ^3/uL (0-1.3); Monocytes % (auto) 5.8 % (0.0-12.0); Neutrophils # (auto) 6.7 10 ^3/uL (1.6-8.6); Neutrophils % (auto) 85.1 % (37.0-80.0); Nucleated Red Blood Cells % 0.2 %; Red Cell Distribution Width 15.2 % (11.8-14.3); White Blood Cell 7.8 10^3/uL (4.4-10.8)
[2023-10-05] MEDS ORDERED: NITROGLYCERIN 0.4 MG SL TAB SL PRN (08:00)
[2023-10-05 08:12] LABS: Alanine Aminotransferase 11 U/L (7-40); Albumin 4.3 g/dL (3.2-4.8); Alkaline Phosphatase 107 U/L (46-116); Anion Gap 7 (5-15); Aspartate Aminotransferase 13 U/L (13-40); BUN/Creatinine Ratio 17.1 (10.0-20.0); Bilirubin, Total 1.1 mg/dL (0.2-1.0); Blood Urea Nitrogen 12 mg/dL (9-23); Calcium 10.1 mg/dL (8.5-10.1); Carbon Dioxide 25 mmol/L (20-30); Chloride 107 mmol/L (98-107); Glucose 91 mg/dL (74-106); Potassium 3.8 mmol/L (3.5-5.1); Sodium 139 mmol/L (136-145); Total Protein 6.9 g/dL (5.7-8.2)
[2023-10-05] MEDS: ASPirin 81 mg TAB PO SCH (10:00)
[2023-10-05] MEDS: METOPROLOL TARTRATE 25 MG TAB PO SCH (10:00)
[2023-10-05] MEDS: ACCU-CHEK COMFORT CURVE STRIP VI SCH (11:30)
[2023-10-05] MEDS: InsuLIN REG 1unit/0.01ml Soln (100units/ml) SC SCH (11:30)
[2023-10-05] MEDS: FUROSEMIDE 40 MG/4 ML VIAL IV SCH (11:44)
[2023-10-05] MEDS: SODIUM CHLOR 0.9% PF (SALINE LOCK) 10ML VIAL/SYR IV SCH (14:00)
[2023-10-05] MEDS: amLODIPine BESYLATE 5 MG TAB PO ONE (18:31)
[2023-10-05] MEDS: ATORVASTATIN 20 MG TAB PO SCH (21:41)
[2023-10-06 01:00] VITALS: BP_SYST 146; BP_SYST 159; BP_DIAS 69; BP_DIAS 86; PULSE 63; PULSE 66; RESP 16; RESP 18; TEMP 97.7; TEMP 98.2; O2SAT 92; O2SAT 97
[2023-10-06 05:00] VITALS: BP 124/63; PULSE 74; RESP 19; TEMP 98.1; O2SAT 94
[2023-10-06 06:34] LABS: Basophils # (auto) 0.1 10 ^3/uL (0-0.2); Eosinophils # (auto) 0.2 10 ^3/uL (0-0.8); Eosinophils % (auto) 3.2 % (0.0-7.0); Hematocrit 49.6 % (36.0-46.0); Hemoglobin 16.7 g/dL (12.2-16.2); Lymphocytes % (auto) 16.1 % (10.0-50.0); Mean Corpuscular Hemoglobin 31.2 pg (28.0-32.0); Mean Corpuscular Hgb Conc. 33.6 g/dL (32.0-36.0); Mean Corpuscular Volume 92.9 fL (80.0-100.0); Monocytes # (auto) 0.8 10 ^3/uL (0-1.3); Monocytes % (auto) 11.9 % (0.0-12.0); Neutrophils # (auto) 4.3 10 ^3/uL (1.6-8.6); Neutrophils % (auto) 67.8 % (37.0-80.0); Red Blood Cells 5.33 10^6/uL (4.0-5.20); Red Cell Distribution Width 14.9 % (11.8-14.3); White Blood Cell 6.3 10^3/uL (4.4-10.8)
[2023-10-06 06:51] LABS: Alanine Aminotransferase 14 U/L (7-40); Albumin 4.2 g/dL (3.2-4.8); Alkaline Phosphatase 104 U/L (46-116); Anion Gap 4 (5-15); Aspartate Aminotransferase 17 U/L (13-40); BUN/Creatinine Ratio 18.8 (10.0-20.0); Blood Urea Nitrogen 15 mg/dL (9-23); Calcium 9.8 mg/dL (8.5-10.1); Carbon Dioxide 27 mmol/L (20-30); Chloride 105 mmol/L (98-107); Glucose 112 mg/dL (74-106); Potassium 3.7 mmol/L (3.5-5.1); Sodium 136 mmol/L (136-145)
[2023-10-06 06:52] LABS: Total Protein 6.7 g/dL (5.7-8.2)
[2023-10-06 08:00] VITALS: PULSE 86; RESP 18; O2SAT 96
[2023-10-06 09:08] VITALS: BP 127/67; PULSE 81; RESP 17; TEMP 98.2; O2SAT 96
[2023-10-06] MEDS: amLODIPine BESYLATE 5 MG TAB PO SCH (09:09)
[2023-10-06 12:24] VITALS: BP 127/67; PULSE 81
== END 2023-10-06 13:45 | disposition home or self-care (01) | DRG 291 ==
LOC: ER 22:39 → EDBD 22:39 → TELE 10-05 08:00 → TELE-WESTW 10-05 08:59
PROVIDERS: ADMIT Nurse Practitioner Family; ATTEND Nurse Practitioner Family
DX: I11.0 Hypertensive heart disease with heart failure (principal); I50.33 Acute on chronic diastolic (congestive) heart failure; J44.1 Chronic obstructive pulmonary disease with (acute) exacerbation; I25.10 Atherosclerotic heart disease of native coronary artery without angina pectoris; R13.10 Dysphagia, unspecified; E11.65 Type 2 diabetes mellitus with hyperglycemia; E78.00 Pure hypercholesterolemia, unspecified; F17.210 Nicotine dependence, cigarettes, uncomplicated; K22.2 Esophageal obstruction; I25.2 Old myocardial infarction; Z95.5 Presence of coronary angioplasty implant and graft; Z90.710 Acquired absence of both cervix and uterus; Z95.2 Presence of prosthetic heart valve; Z80.0 Family history of malignant neoplasm of digestive organs; Z82.49 Family history of ischemic heart disease and other diseases of the circulatory system
CPT/HCPCS: 36415; 71045; 80053; 82962; 83735; 83880; 84484; 85025; 85610; 85730; 93005; G0378; J2405

== ENCOUNTER 2024-01-16 15:37 | Emergency (ER) | payer OTHER ==
[~2024-01-16] VITALS: Ht 170.2 cm; Wt 64.5 kg
[2024-01-16 16:37] VITALS: BP 113/54; PULSE 89; RESP 16; TEMP 98.2; O2SAT 95
[2024-01-16] MEDS ORDERED: CEPH500C PO (16:55)
== END 2024-01-16 17:17 | disposition home or self-care (01) ==
LOC: ER 15:37
DX: S81.812A Laceration without foreign body, left lower leg, initial encounter (principal); M19.90 Unspecified osteoarthritis, unspecified site; I25.10 Atherosclerotic heart disease of native coronary artery without angina pectoris; F17.290 Nicotine dependence, other tobacco product, uncomplicated; E11.9 Type 2 diabetes mellitus without complications; I11.0 Hypertensive heart disease with heart failure; I50.9 Heart failure, unspecified; J44.9 Chronic obstructive pulmonary disease, unspecified; F17.210 Nicotine dependence, cigarettes, uncomplicated; Z79.82 Long term (current) use of aspirin; Z79.84 Long term (current) use of oral hypoglycemic drugs; Z90.710 Acquired absence of both cervix and uterus; Z79.899 Other long term (current) drug therapy; V09.9XXA Pedestrian injured in unspecified transport accident, initial encounter; Y93.89 Activity, other specified; Y92.89 Other specified places as the place of occurrence of the external cause; Y99.8 Other external cause status
CPT/HCPCS: 12002

== ENCOUNTER 2024-01-23 15:12 | Emergency (ER) | payer OTHER ==
[~2024-01-23] VITALS: Ht 170.2 cm; Wt 63.6 kg
[~2024-01-23 15:12] MED LIST changes: +CEPH500C PO
[2024-01-23 15:20] VITALS: BP 144/72; PULSE 104
[2024-01-23] MEDS: methylPREDNISolone SOD SUCC 125 MG/2 ML VL IV ONE (15:47)
[2024-01-23 16:30] LABS: COVID19 ANTIGEN SOFIA FIA NEGATIVE (NEGATIVE)
[2024-01-23] MEDS: ALBUTEROL SULF 2.5 MG/0.5ML(0.5%) NEB SOLN NEB ONE (16:38)
[2024-01-23 16:39] VITALS: RESP 20; O2SAT 92
[2024-01-23] MEDS: IPRATROPIUM BROM 0.5 MG/2.5ML INH SOL NEB ONE (16:39)
[2024-01-23 16:41] LABS: Basophils # (auto) 0.1 10 ^3/uL (0-0.2); Basophils % (auto) 0.6 % (0.0-2.0); Eosinophils # (auto) 0 10 ^3/uL (0-0.8); Eosinophils % (auto) 0.3 % (0.0-7.0); Hematocrit 48.8 % (36.0-46.0); Hemoglobin 16.4 g/dL (12.2-16.2); Lymphocytes # (auto) 0.4 10 ^3/uL (0.4-5.4); Lymphocytes % (auto) 5.3 % (10.0-50.0); Mean Corpuscular Hemoglobin 32.5 pg (28.0-32.0); Mean Corpuscular Hgb Conc. 33.7 g/dL (32.0-36.0); Mean Corpuscular Volume 96.5 fL (80.0-100.0); Monocytes # (auto) 0.7 10 ^3/uL (0-1.3); Monocytes % (auto) 8.5 % (0.0-12.0); Neutrophils # (auto) 7.2 10 ^3/uL (1.6-8.6); Neutrophils % (auto) 85.3 % (37.0-80.0); Nucleated Red Blood Cells % 0.2 %; Platelet Count (auto) 179 10^3/uL (140-450); Red Blood Cells 5.06 10^6/uL (4.0-5.20); Red Cell Distribution Width 14.9 % (11.8-14.3); White Blood Cell 8.4 10^3/uL (4.4-10.8)
[2024-01-23 16:59] LABS: Alanine Aminotransferase 14 U/L (7-40); Albumin 4.6 g/dL (3.2-4.8); Alkaline Phosphatase 115 U/L (46-116); Anion Gap 6 (5-15); Aspartate Aminotransferase 17 U/L (13-40); BUN/Creatinine Ratio 14.1 (10.0-20.0); Blood Urea Nitrogen 10 mg/dL (9-23); Calcium 9.8 mg/dL (8.7-10.4); Carbon Dioxide 27 mmol/L (20-31); Chloride 108 mmol/L (98-107); Glucose 140 mg/dL (74-106); Potassium 4.1 mmol/L (3.5-5.1); Sodium 141 mmol/L (136-145)
[2024-01-23 17:00] LABS: Bilirubin, Total 1.2 mg/dL (0.2-1.0); Total Protein 6.8 g/dL (5.7-8.2)
[2024-01-23 17:13] LABS: Urine Amorphous Crystal FEW /hpf (None Seen); Urine Bacteria FEW /hpf (None Seen); Urine Blood Negative /uL (Negative); Urine Clarity Turbid (Clear); Urine Color Light-Yellow (Yellow); Urine Protein, UAD Negative (Negative); Urine Specific Gravity 1.015 (1.001-1.035); Urine Urobilinogen Normal (Negative); Urine WBC 3 /hpf (0 - 5); Urine pH 6.5 (5.0-9.0)
[2024-01-23] MEDS ORDERED: FUROSEMIDE 40 MG/4 ML VIAL IV ONE (17:45)
== END 2024-01-23 18:46 | disposition left against medical advice (07) ==
LOC: EDBD 15:12 → ER 15:17
DX: I11.0 Hypertensive heart disease with heart failure (principal); I50.9 Heart failure, unspecified; E11.9 Type 2 diabetes mellitus without complications; F17.210 Nicotine dependence, cigarettes, uncomplicated; F17.290 Nicotine dependence, other tobacco product, uncomplicated; J44.9 Chronic obstructive pulmonary disease, unspecified; M19.90 Unspecified osteoarthritis, unspecified site; Z87.440 Personal history of urinary (tract) infections; Z90.710 Acquired absence of both cervix and uterus; Z98.890 Other specified postprocedural states
CPT/HCPCS: 36415; 71045; 80053; 81001; 83880; 84484; 85025; 87426; 94640; 96374; 99284; J2919

== ENCOUNTER 2024-05-28 16:35 | Inpatient (IN) | payer OTHER ==
[~2024-05-28] VITALS: Ht 165.1 cm; Wt 67.7 kg
--- NOTE | 2024-05-28 17:01 | ED.PDOC ---
HPI Comments 83 y/o F BIBA, with PMHX of COPD, CHF, and HTN presents to the ED for CC palpitations. Per EMS, patient's family members are poor historian and report x3-4 days of malaise. Upon arrival to scene, EMS states that patient was found to be alert with slight disorientation. EKG in route to ED showed A-FIB RVR and ACCU-CHECK read at 216 on glucometer. Per EMS, patient's family comments on new symptoms of weakness and incontinence x1day. No other symptoms or modifying factors at this time. Chief Complaint: Palpitations Time Seen by MD: 16:30 Primary Care Provider: UNKNOWN NAME Reviewed Notes: Nurses Notes, [place] Notes, Medications, Allergies Allergies: Coded Allergies: NO KNOWN ALLERGIES (Unverified , 10/07/22) Home Meds Active Scripts Cephalexin Monohydrate (Cephalexin) 500 Mg Cap, 1 CAP PO TID, #30 CAP Prov:ERCI RENAE 01/16/24 Metoprolol Tartrate (Lopressor) 25 Mg Tb, 25 MG PO BID for 30 Days, #60 TAB Prov:SOLOMON GRACIA MD 03/30/23 Reported Medications Atorvastatin Calcium (ATORVASTATIN CALCIUM) 20 Mg Tab, 1 TAB PO DAILY 03/25/23 Oxybutynin Chloride (Oxybutynin Chloride) 5 Mg Tab, 1 TAB PO TID 03/25/23 Gabapentin (Gabapentin) 400 Mg Cap, CAP PO 03/25/23 Amlodipine Besylate (Amlodipine Besylate) 5 Mg Tab, 1 TAB PO DAILY 03/25/23 Hydrocodone-Acetaminophen (Rogers 10/325MG) 1 Tab Tb, 1 TAB PO QID PRN for MODERATE PAIN, #120 TAB 10/27/14 Aspirin (Aspir-81) 81 Mg Tab, 81 MG PO DAILY, #30 TAB 5 Refills 10/27/14 Metformin Hydrochloride (Metformin Hcl) 500 Mg Tab, 500 MG PO BID, #60 10/27/14 Clopidogrel Bisulfate (CLOPIDOGREL) 75 Mg Tab, 75 MG PO DAILY, #90 10/27/14 Amiodarone Hcl (Amiodarone Hcl) 200 Mg Tab, 200 MG PO DAILY, #30 10/27/14 Information Source: Patient, Emergency Med Personnel Mode of Arrival: EMS Severity: Moderate Timing: Days Duration: Since onset Prehospital treatment: 12 Lead EKG, Accucheck Onset: At Rest Cardiac Risk Factors: HTN PE Risk Factors: None History of: None Modifying Factors: Nothing Associated Signs and Symptoms: None Past Medical History PAST MEDICAL HISTORY: Arthritis, CAD, CHF, COPD, DM, High Lipids, HTN, FL, UTI'S Surgical History: Hysterectomy, PTCA LIVESTOCK COUNTER History: No Pertinent LIVESTOCK COUNTER History, Ectopic Family History Family History: No family hx of HTN Social History Smoker: Cigarettes, Cigar, Less Than 1 Pack/Day Alcohol: Denies ETOH Use Drugs: Denies Drug Use Lives In: Home Constitutional: denies: chills, diaphoresis, fatigue, fever, malaise, sweats, weakness, others EENTM: denies: blurred vision, double vision, ear bleeding, ear discharge, ear drainage, ear pain, ear ringing, eye pain, eye redness, hearing loss, mouth pain, mouth swelling, nasal discharge, nose bleeding, nose congestion, nose pain, photophobia, tearing, throat pain, throat swelling, voice changes, others Respiratory: denies: cough, hemoptysis, orthopnea, SOB at rest, shortness of breath, SOB with excertion, stridor, wheezing, others Cardiovascular: reports: palpitations; denies: chest pain, dizzy spells, diaphoresis, Dyspnea on exertion, edema, irregular heart beat, left arm pain, lightheadedness, PND, syncope, others Gastrointestinal: denies: abdomen distended, abdominal pain, blood streaked bowels, constipated, diarrhea, dysphagia, difficulty swallowing, hematemesis, melena, nausea, poor appetite, poor fluid intake, rectal bleeding, rectal pain, vomiting, others Genitourinary: denies: abnormal vagina bleeding, burning, dyspareunia, dysuria, flank pain, frequency, hematuria, incontinence, pain, , vagina discharge, urgency, others Neurological: denies: dizziness, fainting, headache, left sided numbness, left sided weakness, numbness, paresthesia, pre-existing deficit, right sided numbness, right sided weakness, seizure, speech problems, tingling, tremors, weakness, others Musculoskeletal: denies: back pain, gout, joint pain, joint swelling, muscle pain, muscle stiffness, neck pain, others Integumetry: denies: bruises, change in color, change in hair/nails, dryness, laceration, lesions, lumps, rash, wounds, others Allergic/Immunocompromised: denies: Difficulty Healing, Frequent Infections, Hives, Itching, others Hematologic/Lymphatic: denies: anemia, blood clots, easy bleeding, easy bruising, swollen glands, others Endocrine: denies: excessive hunger, excessive sweating, excessive thirst, excessive urination, flushing, intolerance to cold, intolerance to heat, unexplained weight gain, unexplained weight loss, others Psychiatric: denies: anxiety, bipolar disorder, depression, hopeless, panic disorder, schizophrenia, sleepless, suicidal, others All Other Systems: Reviewed and Negative Physical Exam General Appearance: Moderate Distress HEENT: Normal ENT Inspection, Pharynx Normal, TMs Normal Neck: Full Range of Motion, Non-Tender, Normal, Normal Inspection Respiratory: Chest Non-Tender, Lungs Clear, No Accessory Muscle Use, Respiratory Distress Cardiovascular: Irregular, No Edema, No JVD, No Murmur, No Gallop, Tachycardia Breast Exam: Deferred Gastrointestinal: No Organomegaly, Non Tender, No Pulsatile Mass, Normal Bowel Sounds, Soft Genitalia: Deferred Pelvic: Deferred Rectal: Deferred Extremities: No calf tenderness, Normal capillary refill, Normal inspection, Normal range of motion, Non-tender, No pedal edema Musculoskeletal : Apperance: Normal Neurologic: wood pole treater II-XII nml as Tested, Motor Weakness, No Sensory Deficits, Other (Altered) Cerebellar Function: Unable to Test Reflexes: Normal Skin: Dry, Normal Color, Warm Lymphatic: No Adenopathy EKG EKG : Pulse Rate (adult): 156 [place]: Normal Cardiac Rhythm: Afib Block: None ST: Nonsp Was a procedure done? Was a procedure done?: No CP Differential Dx Differential Diagnosis: A-fib, Angina, FL X-Ray, Labs, Meds, VS Vital Signs Date Time Temp Pulse Resp B/P (MAP) Pulse Ox O2 Delivery O2 Flow Rate FiO2 05/28/24 20:51 148 123/81 05/28/24 19:31 142 05/28/24 19:30 98.1 136 28 112/88 (96) 97 98.1 05/28/24 18:36 135 110/74 05/28/24 18:36 110/74 05/28/24 18:30 136 110/76 05/28/24 17:43 156 26 139/103 (115) 95 05/28/24 17:43 156 26 95 Nasal Cannula* 5 40 05/28/24 17:25 156 139/103 05/28/24 17:24 173 05/28/24 17:22 157 05/28/24 16:47 99.0 148 30 115/59 (77) 96 Lab Test 05/28/24 20:57 05/28/24 18:30 05/28/24 18:19 05/28/24 17:30 Range/Units Lactic Acid Level Pending Troponin I High Sensitivity Pending 333 *H 313 *H </=34 ng/L Influenza Type A Antigen Positive Negative Influenza Type B Antigen Negative Negative SARS-CoV-2 Antigen (Rapid) Negative NEGATIVE White Blood Count 5.1 4.4-10.8 10^3/uL Red Blood Count 5.32 H 4.0-5.20 10^6/uL Hemoglobin 16.2 12.2-16.2 g/dL Hematocrit 51.1 H 36.0-46.0 % Mean Corpuscular Volume 96.1 80.0-100.0 fL Mean Corpuscular Hemoglobin 30.5 28.0-32.0 pg Mean Corpuscular Hemoglobin Concent 31.7 L 32.0-36.0 g/dL Red Cell Distribution Width 15.6 H 11.8-14.3 % Platelet Count 167 140-450 10^3/uL Mean Platelet Volume 9.1 6.9-10.8 fL Neutrophils (%) (Auto) 79.4 37.0-80.0 % Lymphocytes (%) (Auto) 5.4 L 10.0-50.0 % Monocytes (%) (Auto) 13.1 H 0.0-12.0 % Eosinophils (%) (Auto) 0.5 0.0-7.0 % Basophils (%) (Auto) 1.6 0.0-2.0 % Neutrophils # (Auto) 4.1 1.6-8.6 10 ^3/uL Lymphocytes # (Auto) 0.3 L 0.4-5.4 10 ^3/uL Monocytes # (Auto) 0.7 0-1.3 10 ^3/uL Eosinophils # (Auto) 0 0-0.8 10 ^3/uL Basophils # (Auto) 0.1 0-0.2 10 ^3/uL Nucleated Red Blood Cells 0.1 % Sodium Level 140 136-145 mmol/L Potassium Level 4.6 3.5-5.1 mmol/L Chloride Level 104 98-107 mmol/L Carbon Dioxide Level 25 20-31 mmol/L Anion Gap 11 5-15 Blood Urea Nitrogen 59 H 9-23 mg/dL Creatinine 1.45 H 0.550-1.02 mg/dL Glomerular Filtration Rate Calc 36 >90 mL/min BUN/Creatinine Ratio 40.7 H 10.0-20.0 Serum Glucose 163 H 74-106 mg/dL Calcium Level 9.7 8.7-10.4 mg/dL B-Type Natriuretic Peptide Pending Plasma/Serum Blood Alcohol < 3.0 <10 mg/dL Test 05/28/24 17:15 05/28/24 17:14 Range/Units Lactic Acid Level 2.4 *H 0.4-2.0 mmol/L Urine Color Yellow Yellow Urine Clarity Turbid H Clear Urine pH 5.5 5.0-9.0 Urine Specific [place] 1.024 1.001-1.035 Urine Protein 1+ H Negative Urine Ketones Negative Negative Urine Blood Trace H Negative /uL Urine Nitrite Negative Negative Urine Bilirubin Negative Negative Urine Urobilinogen 2 H Negative mg/dL Urine Leukocyte Esterase Negative Negative /uL Urine RBC 2 0 - 4 /hpf Urine Microscopic WBC 3 0-5 /HPF Urine Squamous Epithelial Cells Few <5 /hpf Urine Bacteria None seen None Seen /hpf Urine Hyaline Casts Mod 0 - 2 /lpf Urine Waxy Casts Few 0 /lpf Urine Mucus Few None Seen Urine Glucose Normal Normal mg/dL Urine Opiates Screen Neg NEGATIVE Urine Fentanyl Screen Neg NEGATIVE Urine Barbiturates Screen Neg NEGATIVE Urine Phencyclidine Screen Neg NEGATIVE Urine Amphetamines Screen Neg NEGATIVE Urine Benzodiazepines Screen Neg NEGATIVE Urine Cocaine Screen Neg NEGATIVE Urine Cannabinoids Screen Neg NEGATIVE Current Medications Medications (Trade) Dose Ordered Sig/Keith Route Start Time Stop Time Status Last Admin Sodium Chloride 1,000 ml @ 150 mls/hr Q6H40M ONCE IV 05/28/24 16:45 05/28/24 23:24 05/28/24 18:04 Labetalol HCl (Labetalol HCl) 20 mg ONCE ONCE IV 05/28/24 16:45 05/28/24 16:46 DC 05/28/24 17:25 Furosemide (Lasix Injection) 40 mg ONCE ONCE IV 05/28/24 18:30 05/28/24 18:32 DC 05/28/24 18:36 Metoprolol Tartrate (Lopressor) 5 mg ONCE ONCE IV 05/28/24 18:30 05/28/24 18:32 DC 05/28/24 18:36 Vancomycin HCl 250 ml @ 250 mls/hr ONCE ONCE IV 05/28/24 19:00 05/28/24 19:59 DC 05/28/24 19:17 Ceftriaxone Sodium 50 ml @ 100 mls/hr ONCE ONCE IV 05/28/24 19:00 05/28/24 19:29 DC 05/28/24 20:45 Metoprolol Tartrate (Lopressor) 5 mg ONCE ONCE IV 05/28/24 20:45 05/28/24 20:46 DC 05/28/24 20:51 CXR: FINDINGS: Lines and Tubes: None Lungs: Congestion Pleura: No effusion. No pneumothorax. Cardiomediastinal contours: Unremarkable Bones: Unremarkable IMPRESSION: Pulmonary vascular congestion ATED BY: AB DOS SANTOS MD DICTATED DATE/TIME: 05/28/241805 SIGNED BY: AB DOS SANTOS MD SIGNED DATE/TIME: 05/28/241805 CC: HEAD CT: FINDINGS: Supratentorial Region: No evidence for large acute territorial ischemia. No intracranial hemorrhage is noted. Confluent white matter hypoattenuating foci are noted bilaterally, which typically reflect chronic microvascular ischemic changes. Posterior Fossa: No acute abnormality. Brainstem: Unremarkable. Sellar/Suprasellar Region: Unremarkable. Ventricles, Cisterns, Sulci: Age-appropriate. Orbits: Unremarkable. Paranasal Sinuses: Unremarkable. Mastoid Air Cells: Unremarkable. Vasculature: Intracranial arterial calcified plaque formation noted. Bones/Soft Tissues: No acute abnormality. Other: None. IMPRESSION: 1. No acute intracranial process. ATED BY: MAURA CRUZ MD DICTATED DATE/TIME: 05/28/241802 SIGNED BY: MAURA CRUZ MD SIGNED DATE/TIME: 05/28/241802 CC: Time of 1ST Reevaluation: 17:00 Reevaluation 1ST: Unchanged Patient Education/Counseling: Diagnosis, Treatment, Prognosis Family Education/Counseling: No Family Present Additional Information - I reviewed the following notes from patient's past medical encounters: 01/23/24 DX: SOB - The following tests were ordered, and results were reviewed by me: LABS, EKG X3, CXR - Additional information was gathered from interviewing the following independent Historian: EMS - I reviewed and agreed with the following test results read by other provider: CXR - I discussed treatments and results with medical personnel. Departure 1 Departure Time of Disposition: 21:34 Impression: Primary Impression: Atrial fibrillation with rapid ventricular response Additional Impressions: Altered mental status Qualified Codes: R41.82 - Altered mental status, unspecified Elevated lactic acid level Disposition: ADMITTED INPATIENT Condition: Fair Critical Care Note Critical Care Time?: Yes (45 min-critical care time only) Stability Stability form required: Yes Unstable for transfer: Telemetry monitoring (Telemetry monitoring required), ED Physician Assesment (Clinical assesment) Heart Score Heart Score: Heart Score Response (Comments) Value History N/A 0 EKG N/A 0 Age N/A 0 Risk Factors N/A 0 Troponin N/A 0 Total 0 I personally scribed for DARELL COREY MD ([email or web address]) on 05/28/24 at 17:01. Electronically submitted by Lyly Frost ([email or web address]). I personally scribed for DARELL COREY MD ([email or web address]) on 05/28/24 at 17:16. Electronically submitted by Lyly Frost ([email or web address]). I personally scribed for DARELL COREY MD ([email or web address]) on 05/28/24 at 18:39. Electronically submitted by Lyly Frost ([email or web address]). I personally scribed for DARELL COREY MD ([email or web address]) on 05/28/24 at 18:39. Electronically submitted by Lyly Frost ([email or web address]). DARELL COREY MD May 28, 2024 17:01
[2024-05-28] MEDS: LABETALOL HCL 20 MG/4 ML VL IV ONE (17:25)
[2024-05-28 17:26] LABS: Urine Bacteria None Seen /hpf (None Seen)
[2024-05-28] MEDS: dilTIAZem 25 MG/5 ML VIAL IV ONE (17:30)
[2024-05-28 17:43] VITALS: PULSE 156; RESP 26; O2SAT 95
[2024-05-28 17:58] LABS: Chloride 104 mmol/L (98-107); Potassium 4.6 mmol/L (3.5-5.1); Sodium 140 mmol/L (136-145)
[2024-05-28 17:59] LABS: Anion Gap 11 (5-15); Carbon Dioxide 25 mmol/L (20-31)
[2024-05-28 18:00] LABS: Calcium 9.7 mg/dL (8.7-10.4)
[2024-05-28] MEDS: SODIUM CHLORIDE 0.9% 1,000 ML IV ONE (18:04)
[2024-05-28 18:05] LABS: BUN/Creatinine Ratio 40.7 (10.0-20.0)
--- NOTE | 2024-05-28 18:05 | DVH ---
EXAM: CT HEAD WITHOUT CONTRAST HISTORY: aloc COMPARISON: CT HEAD WITHOUT CONTRAST on DOS: 03/28/23, CT HEAD WITHOUT CONTRAST on DOS: 10/07/22 TECHNIQUE: Axial images were obtained and reformatted in coronal and sagittal planes. All CT scans at this medical facility are performed using dose modulation techniques as appropriate t o a performed exam including the following: Automated exposure control was utilized; adjustment of th e MA and/or KV according to patient size; and use of iterative reconstruction technique. CT Dose: CTDI volume is 55 mGy. Dose-length product is 981 mGy*cm FINDINGS: Supratentorial Region: No evidence for large acute territorial ischemia. No intracranial hemorrhage is noted. Confluent white matter hypoattenuating foci are noted bilaterally, which typically reflect chronic microvascular ischemic changes. Posterior Fossa: No acute abnormality. Brainstem: Unremarkable. Sellar/Suprasellar Region: Unremarkable. Ventricles, Cisterns, Sulci: Age-appropriate. Orbits: Unremarkable. Paranasal Sinuses: Unremarkable. Mastoid Air Cells: Unremarkable. Vasculature: Intracranial arterial calcified plaque formation noted. Bones/Soft Tissues: No acute abnormality. Other: None. IMPRESSION: 1. No acute intracranial process.
--- NOTE | 2024-05-28 18:11 | DVH ---
CHEST RADIOGRAPH Indication: weakness Technique: Single frontal view of the chest was obtained COMPARISON: XY CHEST PORTABLE on DOS: 01/23/24, XY CHEST PORTABLE on DOS: 10/04/23, XY CHEST PORTABLE on DOS: 03/27/23, XY CHEST PORTABLE on DOS: 03/25/23, XY CHEST PORTABLE on DOS: 10/07/22 FINDINGS: Lines and Tubes: None Lungs: Congestion Pleura: No effusion. No pneumothorax. Cardiomediastinal contours: Unremarkable Bones: Unremarkable IMPRESSION: Pulmonary vascular congestion
[2024-05-28 18:17] LABS: Blood Alcohol < 3.0 mg/dL (<10); Blood Urea Nitrogen 59 mg/dL (9-23); Glucose 163 mg/dL (74-106)
[2024-05-28 18:17] LABS: Amphetamine Screen, Urine Neg (NEGATIVE); Barbiturate Scree,Urine Neg (NEGATIVE); Benzodiazephine Screen, Urine Neg (NEGATIVE); Cannabinoid Screen, Urine Neg (NEGATIVE); Cocaine Screen, Urine Neg (NEGATIVE); Opiate Scree,Urine Neg (NEGATIVE); Phencyclidine Screen, Urine Neg (NEGATIVE)
[2024-05-28 18:19] LABS: Urine Blood TRACE /uL (Negative); Urine Clarity Turbid (Clear); Urine Color Yellow (Yellow); Urine Hyaline Cast MOD /lpf (0 - 2); Urine Mucus FEW (None Seen); Urine Protein, UAD 1+ (Negative); Urine Specific Gravity 1.024 (1.001-1.035); Urine Squamous Epithelial Cell FEW /hpf (<5); Urine Urobilinogen 2 mg/dL (Negative); Urine WBC 3 /HPF (0-5); Urine pH 5.5 (5.0-9.0)
[2024-05-28 18:20] LABS: Basophils # (auto) 0.1 10 ^3/uL (0-0.2); Basophils % (auto) 1.6 % (0.0-2.0); Eosinophils # (auto) 0 10 ^3/uL (0-0.8); Eosinophils % (auto) 0.5 % (0.0-7.0); Hematocrit 51.1 % (36.0-46.0); Hemoglobin 16.2 g/dL (12.2-16.2); Lymphocytes # (auto) 0.3 10 ^3/uL (0.4-5.4); Lymphocytes % (auto) 5.4 % (10.0-50.0); Mean Corpuscular Hemoglobin 30.5 pg (28.0-32.0); Mean Corpuscular Hgb Conc. 31.7 g/dL (32.0-36.0); Mean Corpuscular Volume 96.1 fL (80.0-100.0); Monocytes # (auto) 0.7 10 ^3/uL (0-1.3); Monocytes % (auto) 13.1 % (0.0-12.0); Neutrophils # (auto) 4.1 10 ^3/uL (1.6-8.6); Neutrophils % (auto) 79.4 % (37.0-80.0); Nucleated Red Blood Cells % 0.1 %; Platelet Count (auto) 167 10^3/uL (140-450); Red Blood Cells 5.32 10^6/uL (4.0-5.20); Red Cell Distribution Width 15.6 % (11.8-14.3); White Blood Cell 5.1 10^3/uL (4.4-10.8)
[2024-05-28] MEDS: FUROSEMIDE 40 MG/4 ML VIAL IV ONE (18:36)
[2024-05-28] MEDS: METOPROLOL TARTRATE 1MG/1ML-5ML VIAL IV ONE ×2 (18:36→20:51)
[2024-05-28 18:56] LABS: COVID19 ANTIGEN SOFIA FIA NEGATIVE (NEGATIVE); Rapid Influenza B Negative (Negative)
[2024-05-28 18:57] LABS: Rapid Influenza A Positive (Negative)
[2024-05-28 18:57] LABS: Lactic Acid w/Reflex 2.4 mmol/L (0.4-2.0)
[2024-05-28] MEDS: VANCOMYCIN 1GM/250ML KIT 250 ML IV ONE (19:17)
[2024-05-28 19:30] VITALS: PULSE 136; RESP 28; O2SAT 97
[2024-05-28] MEDS: cefTRIAXone 1GM/50ML D5W 50 ML IV ONE (20:45)
[2024-05-28] MEDS: OSELTAMIVIR 75 MG CAP PO ONE (21:36)
[2024-05-28] MEDS: ENOXAPARIN SOD 80 MG/0.8ML SYRINGE SC SCH (21:37)
[2024-05-28] MEDS ORDERED: MORPHINE SULFATE INJ 2 MG/ml SYRG IV PRN (22:15)
[2024-05-28] MEDS ORDERED: NITROGLYCERIN 0.4 MG SL TAB SL PRN (22:15)
[2024-05-28] MEDS: AMIODARONE BOLUS KIT 100 ML IV ONE (23:30)
[2024-05-28] MEDS: AMIODARONE HCL (50 MG/ ML) 3 ML VIAL IV ONE (23:31)
[2024-05-28] MEDS: AMIODARONE 360mg/200mL PREMIX 200 ML IV ONE (23:40)
[2024-05-29] VITALS (9 sets, daily range): BP systolic 111; BP diastolic 82; PULSE 112–136; RESP 18–30; O2SAT 94–99
[2024-05-29] MEDS: DOXYCYCLINE 100MG/100ML 100 ML IV SCH (00:37)
[2024-05-29] MEDS: FUROSEMIDE 20 MG/2 ML VIAL IV ONE ×3 (00:37→19:32)
[2024-05-29] MEDS: methylPREDNISolone SOD SUCC 40 MG/ML VL IV ONE (01:14)
[2024-05-29 01:15] LABS: Base Excess -4.8 mmol/L (-2.0-3.0)
[2024-05-29] MEDS: IPRATROPIUM BROM 0.5 MG/2.5ML INH SOL NEB PRN (01:51)
[2024-05-29] MEDS: LEVALBUTEROL HCL 1.25 MG/3 ML NEB NEB SCH (01:51)
--- NOTE | 2024-05-29 02:56 | DVHHPRES ---
History of Present Illness Resident Creating Document: LAUREN METCALF RESIDENT Reason for Visit: Sepsis - Afib RVR History of Present Illness An 83-year-old female with a history of COPD, CHF, hypertension, coronary artery disease status post multiple PCIs, severe mitral stenosis, status post TAVR, pulmonary hypertension, and paroxysmal atrial fibrillation. She was brought in by EMS for evaluation of palpitations. The patients family reports three to four days of malaise and recent episodes of weakness and incontinence. En route to the hospital, an EKG showed atrial fibrillation with rapid ventricular response Upon arrival, the patient was tachycardic (HR 145) and hypertensive (BP 118/77), with complaints of chest pain and palpitations. Workup revealed positive influenza A, acute on chronic hypoxemic respiratory failure requiring supplemental oxygen (6L), and evidence of heart failure exacerbation with elevated BNP. Troponins were elevated. Cardiovascular: HFpEF, coronary artery disease (s/p PCI with multiple ANDREY), severe mitral stenosis, s/p TAVR, hypertension, paroxysmal atrial fibrillation Pulmonary: COPD, chronic hypoxemic respiratory failure o2 2lt Endocrine: Type 2 diabetes mellitus Other: Peripheral arterial disease ECHO September 2023: LAE CONC LVH EF >60% SEVERE MS MILD TR MILD AI PROSTHETIC AV Home meds: Atorvastatin, Amlodipine, Clopidogrel, Metformin, Hydrocodone- acetaminophen, Metoprolol tartrate, amiodarone, aspirin Allergies: No known drug allergies Social History: Former smoker No alcohol or illicit drug use Review of Systems Constitutional: Yes: Fever, Chills, Sweats, Weakness, Malaise, Other Respiratory: Cough, Dry, Shortness of breath, SOB with excertion, Wheezing, Hemoptysis, Pleuritic Pain, Sputum, Wheezing, Other Cardiovascular: Chest Pain, Palpitations, Orthopnea, Paroxysmal Noc. Dyspnea, Edema, Lt Headedness, Other Allergies: Coded Allergies: NO KNOWN ALLERGIES (Unverified , 10/07/22) Medications Current Medications Medications Dose Ordered Sig/Keith Route Start Time Stop Time Status Last Admin Dose Admin Enoxaparin Sodium 70 mg DAILY@2200 SC 05/28/24 22:00 05/28/24 21:37 70 MG Nitroglycerin 0.4 mg Q5MINP PRN SL 05/28/24 22:15 Morphine Sulfate 2 mg Q30M PRN IV 05/28/24 22:15 Metoprolol Tartrate 25 mg BID PO 05/29/24 10:00 Doxycycline Hyclate 100 ml @ 50 mls/hr Q12H IV 05/29/24 01:00 05/29/24 00:37 50 MLS/HR Ipratropium [place] 0.5 mg Q4HPRN PRN NEB 05/29/24 01:00 05/29/24 01:51 0.5 MG Levalbuterol HCl 0.625 mg Q4HPRN PRN NEB 05/29/24 02:00 Exam Vital Signs Vital Signs Date Time Temp Pulse Resp B/P (MAP) Pulse Ox O2 Delivery O2 Flow Rate FiO2 05/29/24 02:00 123 35 120/87 (98) 96 05/29/24 01:17 5.0 05/28/24 19:30 98.1 98.1 05/28/24 19:30 Nasal Cannula* 40 General Appearance: Alert, Cooperative, mild distress HEENT: Atraumatic, PERRLA, EOMI Respiratory: Other (wheezing ) Cardiovascular: Other (afib rvr ) Abdominal: Normal bowel sounds, Soft Extremities: Other (edema 2+) Neuro: Normal gait, Normal speech, Strength at 5/5 X4 ext Psych/Mental Status: Mental status NL, Mood NL, Other Labs/Xrays Labs Test 05/29/24 01:10 05/28/24 20:57 05/28/24 18:19 05/28/24 17:30 Range/Units Blood Gas Specimen Type Arterial Blood Gas Sample Site Left radial Blood Gas Patient Temperature 37.0 Arterial Blood Date Drawn [id number] Arterial Blood pH 7.310 L 7.350-7.450 Arterial Blood Partial Pressure CO2 43.4 32.0-45.0 mmHg Arterial Blood Partial Pressure O2 92.8 83.0-108.0 mmHg Arterial Blood HCO3 21.4 21.0-28.0 mmol/L Arterial Blood Oxygen Saturation 96.1 94.0-98.0 % Arterial Blood Base Excess -4.8 L -2.0-3.0 mmol/L Arterial Blood Oxyhemoglobin 94.5 94.0-98.0 % Arterial Blood Carboxyhemoglobin 1.1 0.5-1.5 % Arterial Blood Methemoglobin 0.6 0.0-1.5 % Glenn Test Yes Blood Gas Total Hemoglobin 16.60 H 12.0-16.0 g/dL Blood Gas Liter Flow 5.00 Blood Gas Modality Nasal cannula FiO2 % 40.0 Lactic Acid Level 1.8 0.4-2.0 mmol/L Troponin I High Sensitivity 351 *H </=34 ng/L Influenza Type A Antigen Positive Negative Influenza Type B Antigen Negative Negative SARS-CoV-2 Antigen (Rapid) Negative NEGATIVE White Blood Count 5.1 4.4-10.8 10^3/uL Red Blood Count 5.32 H 4.0-5.20 10^6/uL Hemoglobin 16.2 12.2-16.2 g/dL Hematocrit 51.1 H 36.0-46.0 % Mean Corpuscular Volume 96.1 80.0-100.0 fL Mean Corpuscular Hemoglobin 30.5 28.0-32.0 pg Mean Corpuscular Hemoglobin Concent 31.7 L 32.0-36.0 g/dL Red Cell Distribution Width 15.6 H 11.8-14.3 % Platelet Count 167 140-450 10^3/uL Mean Platelet Volume 9.1 6.9-10.8 fL Neutrophils (%) (Auto) 79.4 37.0-80.0 % Lymphocytes (%) (Auto) 5.4 L 10.0-50.0 % Monocytes (%) (Auto) 13.1 H 0.0-12.0 % Eosinophils (%) (Auto) 0.5 0.0-7.0 % Basophils (%) (Auto) 1.6 0.0-2.0 % Neutrophils # (Auto) 4.1 1.6-8.6 10 ^3/uL Lymphocytes # (Auto) 0.3 L 0.4-5.4 10 ^3/uL Monocytes # (Auto) 0.7 0-1.3 10 ^3/uL Eosinophils # (Auto) 0 0-0.8 10 ^3/uL Basophils # (Auto) 0.1 0-0.2 10 ^3/uL Nucleated Red Blood Cells 0.1 % Sodium Level 140 136-145 mmol/L Potassium Level 4.6 3.5-5.1 mmol/L Chloride Level 104 98-107 mmol/L Carbon Dioxide Level 25 20-31 mmol/L Anion Gap 11 5-15 Blood Urea Nitrogen 59 H 9-23 mg/dL Creatinine 1.45 H 0.550-1.02 mg/dL Glomerular Filtration Rate Calc 36 >90 mL/min BUN/Creatinine Ratio 40.7 H 10.0-20.0 Serum Glucose 163 H 74-106 mg/dL Calcium Level 9.7 8.7-10.4 mg/dL B-Type Natriuretic Peptide 1114.71 0-100 pg/mL Plasma/Serum Blood Alcohol < 3.0 <10 mg/dL Test 05/28/24 17:14 Range/Units Urine Color Yellow Yellow Urine Clarity Turbid H Clear Urine pH 5.5 5.0-9.0 Urine Specific [place] 1.024 1.001-1.035 Urine Protein 1+ H Negative Urine Ketones Negative Negative Urine Blood Trace H Negative /uL Urine Nitrite Negative Negative Urine Bilirubin Negative Negative Urine Urobilinogen 2 H Negative mg/dL Urine Leukocyte Esterase Negative Negative /uL Urine RBC 2 0 - 4 /hpf Urine Microscopic WBC 3 0-5 /HPF Urine Squamous Epithelial Cells Few <5 /hpf Urine Bacteria None seen None Seen /hpf Urine Hyaline Casts Mod 0 - 2 /lpf Urine Waxy Casts Few 0 /lpf Urine Mucus Few None Seen Urine Glucose Normal Normal mg/dL Urine Opiates Screen Neg NEGATIVE Urine Fentanyl Screen Neg NEGATIVE Urine Barbiturates Screen Neg NEGATIVE Urine Phencyclidine Screen Neg NEGATIVE Urine Amphetamines Screen Neg NEGATIVE Urine Benzodiazepines Screen Neg NEGATIVE Urine Cocaine Screen Neg NEGATIVE Urine Cannabinoids Screen Neg NEGATIVE Assessment/Plan Assessment/Plan Laboratory Results BNP: 1114.7 (elevated) Troponin I (high sensitivity): 313 333- 351 Creatinine: 1.45 (baseline ~1.2) Influenza A: Positive Xray: pulmonary edema Admit COLTON status #Atrial Fibrillation with RVR #NSTEMI type 2 secondary to afib and HF Started on amiodarone 150 mg IV bolus, followed by amiodarone drip Metoprolol IV (total 20 mg), diltiazem and labetalol given for rate control Enoxaparin 40 mg BID #Acute on Chronic Respiratory Failure (likely due to influenza type A, COPD exacerbation & heart failure) Oxygen 6L nasal cannula Ipratropium/levalbuterol nebulizers Solumedrol (single dose) Furosemide given for fluid overload Doxycycline iv ABG: mixed respiratory and metabolic acidosis #Acute Heart Failure Exacerbation (likely due to volume overload and atrial fibrillation) Furosemide IV BNP elevated Echocardiogram Stop fluids Hold on BP meds #Sepsis due to Positive Influenza A Supportive care Oseltamivir #CHIKA vasomotor mediated Fluids already given Avoid nephrotoxic medications Monitor renal function with continued diuresis # Type 2 Diabetes Mellitus Mild insulin sliding scale #Coronary Artery Disease Troponins elevated most likely due to AFIB Continue dual antiplatelet therapy and statin Cardiology consulted Case discussed with Dr May Time spent on care 71 min Plan discussed with: Patient, Other (rn) My Orders Orders - LAUREN METCALF RESIDENT Procedure Category Date Status Time Mrsa Screen FABIOLA 05/28/24 Logged 21:12 Urine Bacterial FABIOLA 05/28/24 In Process Culture 21:12 Enoxaparin Sodium PHA 05/28/24 In Process (Lovenox) 22:00 Pharmacy [facility] 05/28/24 In Process Clarification: 21:23 Admit ADMIT 05/28/24 Transmitted 22:11 Nitroglycerin PHA 05/28/24 In Process Sublingual (Ntrostat 22:15 Morphine Sulfate PHA 05/28/24 In Process Injection 22:15 Oxygen By Nasal RT 05/28/24 Transmitted Cannula 22:11 Stat Ekg For Chest [facility] 05/28/24 In Process Pain 22:11 Notify Md Of Changes [facility] 05/28/24 In Process From Base 22:11 Truck Guard For [facility] 05/28/24 In Process 24 Hours 22:11 Emergency Dysrhythmia [facility] 05/28/24 In Process Protocol 22:11 Rhythm Strips Once [facility] 05/28/24 In Process Every Shift 22:11 Metoprolol Tartrate PHA 05/29/24 In Process Tablet (Lopressor Ta 10:00 Amiodarone PHA 05/28/24 In Process 360mg/200ml Premix 23:15 Doxycycline PHA 05/29/24 In Process 100mg/100ml 01:00 Abg W/ Co-Ox RT 05/29/24 Logged 00:54 Chest Portable XY 05/29/24 Logged 00:54 Ipratropium Medneb PHA 05/29/24 In Process (Atrovent Medneb) 01:00 Cont Med Neb Intial Tx RT 05/29/24 Logged 00:57 Furosemide Injection PHA 05/29/24 In Process (Lasix Injection) 03:00 Levalbuterol Hcl PHA 05/29/24 In Process (Xopenex Medneb) 02:00 Date of Service: May 28, 2024 Billing Provider: YADIRA MAY MD Common Visit Codes: [id number] INP/OBS CARE (HIGH) LAUREN METCALF RESIDENT May 29, 2024 02:56 YADIRA MAY MD May 29, 2024 23:30
[2024-05-29] MEDS ORDERED: DEXTROSE (50%) 50ML SYRG IV PRN (03:00)
--- NOTE | 2024-05-29 05:25 | DVH ---
CHEST RADIOGRAPH Indication: doctor request Technique: Single frontal view of the chest was obtained Comparison: XY CHEST PORTABLE on DOS: 05/28/24 FINDINGS: Lines and Tubes: None Lungs: Mild interstitial prominence. No focal consolidation. Pleura: No effusion. No pneumothorax. Cardiomediastinal contours: Unremarkable Bones: No acute osseous abnormality. IMPRESSION: 1. Mild pulmonary congestion.
[2024-05-29] MEDS: AMIODARONE 360mg/200mL PREMIX 200 ML IV SCH (05:40)
[2024-05-29 06:33] LABS: Basophils # (auto) 0 10 ^3/uL (0-0.2); Basophils % (auto) 0.1 % (0.0-2.0); Eosinophils # (auto) 0 10 ^3/uL (0-0.8); Hematocrit 49.7 % (36.0-46.0); Hemoglobin 16.2 g/dL (12.2-16.2); Lymphocytes # (auto) 0.2 10 ^3/uL (0.4-5.4); Lymphocytes % (auto) 5.6 % (10.0-50.0); Mean Corpuscular Hemoglobin 31.2 pg (28.0-32.0); Mean Corpuscular Hgb Conc. 32.6 g/dL (32.0-36.0); Mean Corpuscular Volume 95.7 fL (80.0-100.0); Monocytes # (auto) 0.3 10 ^3/uL (0-1.3); Monocytes % (auto) 7.7 % (0.0-12.0); Neutrophils # (auto) 3.7 10 ^3/uL (1.6-8.6); Neutrophils % (auto) 86.6 % (37.0-80.0); Nucleated Red Blood Cells % 0.4 %; Platelet Count (auto) 166 10^3/uL (140-450); Red Blood Cells 5.19 10^6/uL (4.0-5.20); Red Cell Distribution Width 15.9 % (11.8-14.3); White Blood Cell 4.2 10^3/uL (4.4-10.8)
[2024-05-29] MEDS: LEVALBUTEROL HCL 1.25 MG/3 ML NEB NEB PRN (06:38)
[2024-05-29] MEDS: ACCU-CHEK COMFORT CURVE STRIP VI SCH (06:38)
[2024-05-29] MEDS: InsuLIN REG 1unit/0.01ml Soln (100units/ml) SC SCH (06:42)
[2024-05-29 06:46] LABS: Alkaline Phosphatase 102 U/L (46-116); Anion Gap 11 (5-15); BUN/Creatinine Ratio 36.5 (10.0-20.0); Bilirubin, Total 0.6 mg/dL (0.2-1.0); Calcium 9.5 mg/dL (8.7-10.4); Carbon Dioxide 22 mmol/L (20-31); Chloride 105 mmol/L (98-107); Potassium 4.7 mmol/L (3.5-5.1); Sodium 138 mmol/L (136-145)
[2024-05-29 06:47] LABS: Alanine Aminotransferase 81 U/L (7-40); Aspartate Aminotransferase 61 U/L (13-40); Blood Urea Nitrogen 50 mg/dL (9-23); Glucose 222 mg/dL (74-106); Total Protein 6.1 g/dL (5.7-8.2)
[2024-05-29 09:28] LABS: Triglycerides 133 mg/dL (< 150)
[2024-05-29 09:29] LABS: LDL Cholesterol 62 mg/dL (< 100)
[2024-05-29 09:31] LABS: Cholesterol 123 mg/dL (< 200); HDL Cholesterol 35 mg/dL (40-59)
[2024-05-29] MEDS ORDERED: ATORVASTATIN 20 MG TAB PO SCH (10:00)
[2024-05-29] MEDS ORDERED: METOPROLOL TARTRATE 25 MG TAB PO SCH (10:00)
[2024-05-29] MEDS ORDERED: FURO1TAB33 PO (10:03)
[2024-05-29] MEDS: CLOPIDOGREL BISULFATE 75 MG TAB PO SCH (10:36)
[2024-05-29] MEDS: ASPirin 81 mg TAB PO SCH (10:36)
[2024-05-29] MEDS: OSELTAMIVIR 75 MG CAP PO ONE (10:37)
[2024-05-29] MEDS: METOPROLOL TARTRATE 50 MG TAB PO SCH (10:37)
--- NOTE | 2024-05-29 10:59 | DVHCONRES ---
Date Seen: May 29, 2024 Resident Creating Document: ANTIONE SWANSON RESIDENT Referring Physician Dr. Tobin Reason for Consultation Chest pain with AFib History of Present Illness This is an 83-year-old female who comes in to the ED with chief complain of palpitations. She has a past medical history relevant for COPD, CHF with a preserved ejection fraction, hypertension, CAD status post PCI x9 stents, history of AK in 1996 and 2005, severe mitral stenosis, status post TAVR, pulmonary hypertension, paroxysmal atrial fibrillation, type 2 diabetes, peripheral artery disease. Last left heart catheterization was in 2022 which was unremarkable. History was obtained mainly from EMR, patient is currently altered, GCS is 13 points. Patient's family report that for the last four days the patient has been experiencing general malaise, weakness, incontinence. In route to the hospital, an EKG show AFib with RVR. On arrival patient was tachycardic, complain of chest pain and palpitations. She was positive for influenza type a, she was requiring 6 L of supplemental oxygen, BNP was high and troponins were also elevated. In the ED patient received IV fluids, patient was given labetalol and then diltiazem rate control, she was also given Lasix later on, patient was given Tamiflu and doxycycline, patient remained on RVR. Patient was subsequently placed on amiodarone drip, bolus was given. Scheduled beta-blockers were started. Patient was also given therapeutic Lovenox. Previous echo from October 06 shows concentric LVH, ejection fraction of 60%, severely mass, mild TR, mild AI. On my assessment, patient appeared altered, GCS of 13 points. Stated feeling short of breath, denied chest pain, she is in moderate distress due to shortness of breath, ill-appearing, tachypneic at 22, monitor show AFib with RVR at 120s, she was nasal cannula 2 L saturating at 98%. Family History: Cancer G8 FATHER Cancer of colon G8 FATHER Family history: Cardiovascular disease G8 MOTHER Allergies: Coded Allergies: NO KNOWN ALLERGIES (Unverified , 10/07/22) Home Meds Active Scripts Cephalexin Monohydrate (Cephalexin) 500 Mg Cap, 1 CAP PO TID, #30 CAP Prov:ERIC RENAE 01/16/24 Metoprolol Tartrate (Lopressor) 25 Mg Tb, 25 MG PO BID for 30 Days, #60 TAB Prov:SOLOMON GRACIA MD 03/30/23 Reported Medications Furosemide (Lasix) 20 Mg Tb, 1 TAB PO DAILY, #90 TAB 1 Refill 05/29/24 Atorvastatin Calcium (ATORVASTATIN CALCIUM) 20 Mg Tab, 1 TAB PO DAILY 03/25/23 Oxybutynin Chloride (Oxybutynin Chloride) 5 Mg Tab, 1 TAB PO TID 03/25/23 Gabapentin (Gabapentin) 400 Mg Cap, CAP PO 03/25/23 Amlodipine Besylate (Amlodipine Besylate) 5 Mg Tab, 1 TAB PO DAILY 03/25/23 Hydrocodone-Acetaminophen ([place] 10/325MG) 1 Tab Tb, 1 TAB PO QID PRN for MODERATE PAIN, #120 TAB 10/27/14 Aspirin (Aspir-81) 81 Mg Tab, 81 MG PO DAILY, #30 TAB 5 Refills 10/27/14 Metformin Hydrochloride (Metformin Hcl) 500 Mg Tab, 500 MG PO BID, #60 10/27/14 Clopidogrel Bisulfate (CLOPIDOGREL) 75 Mg Tab, 75 MG PO DAILY, #90 10/27/14 Amiodarone Hcl (Amiodarone Hcl) 200 Mg Tab, 200 MG PO DAILY, #30 10/27/14 Current Medications Current Medications Medications (Trade) Dose Ordered Sig/Keith Route PRN Reason Start Time Stop Time Status Last Admin Enoxaparin Sodium (Lovenox) 70 mg DAILY@2200 SC 05/28/24 22:00 05/28/24 21:37 Nitroglycerin (Ntrostat Sublingual) 0.4 mg Q5MINP PRN SL FOR CHEST PAIN 05/28/24 22:15 Morphine Sulfate 2 mg Q30M PRN IV FOR CHEST PAIN 05/28/24 22:15 Metoprolol Tartrate (Lopressor Tablet) 25 mg BID PO 05/29/24 10:00 05/29/24 10:06 DC Doxycycline Hyclate 100 ml @ 50 mls/hr Q12H IV 05/29/24 01:00 05/29/24 00:37 Ipratropium [place] (Atrovent Medneb) 0.5 mg Q4HPRN PRN NEB SHORTNESS OF BREATH 05/29/24 01:00 05/29/24 01:51 Levalbuterol HCl (Xopenex Medneb) 0.625 mg Q4HPRN NEB 05/29/24 01:00 05/29/24 01:55 DC 05/29/24 01:51 Levalbuterol HCl (Xopenex Medneb) 0.625 mg Q4HPRN PRN NEB SHORTNESS OF BREATH 05/29/24 02:00 05/29/24 09:40 Aspirin 81 mg DAILY PO 05/29/24 10:00 05/29/24 10:36 Clopidogrel Bisulfate (Plavix) 75 mg DAILY PO 05/29/24 10:00 05/29/24 10:36 Atorvastatin Calcium (Lipitor) 80 mg DAILY PO 05/29/24 10:00 05/29/24 10:08 DC Diagnostic Test (Pha) (Accu-Chek Comfort Curve T) 1 strip ACHS 05/29/24 07:00 05/29/24 06:38 Insulin Human Regular (InsuLIN R) ACHS SC 05/29/24 07:00 05/29/24 06:42 Dextrose 50 ml UD PRN IV Blood Sugar LESS THAN 60 05/29/24 03:00 Oseltamivir Phosphate (Tamiflu 30MG Capsule) 30 mg Q12HR PO 05/29/24 22:00 06/02/24 22:01 Metoprolol Tartrate (Lopressor Tablet) 50 mg BID PO 05/29/24 10:10 05/29/24 10:37 Atorvastatin Calcium (Lipitor) 20 mg HS PO 05/29/24 22:00 Review of Systems Can not obtain given patient's confused and somnolent. Vital Signs Vital Signs Date Time Temp Pulse Resp B/P (MAP) Pulse Ox O2 Delivery O2 Flow Rate FiO2 05/29/24 10:37 121 105/76 05/29/24 09:46 26 99 05/29/24 09:40 Nasal Cannula* 3 32 05/29/24 08:35 98.1 98.1 Physical Exam General: Awake, alert, comfortable appearing, in no acute distress. HEENT: Head is normocephalic and atraumatic. Pupils are equal, round, and reactive to light. Extraocular muscles are intact. No nasal discharge. No facial trauma. Intraoral exam shows moist mucous membranes with no tonsillar enlargement or exudate. Neck: Supple with no cervical lymphadenopathy No meningismus. No goiter. Heart: Irregularly irregular rate Lungs: Mild-mod bilateral crackles Abdomen: No external sign of injury. Bowel sounds are present. Abdomen is soft, nontender. No rebound, no guarding, no rigidity. There are no palpable masses. There is no flank pain on exam. Extremities: Mild peripheral nonpitting edema, cold extremities Skin: No rash. Neurologic: Cranial nerves II-XII intact without motor, sensory, or cerebellar deficit, no asterixis. Labs/Diagnostic Data Labs Test 05/29/24 06:35 05/29/24 05:48 05/29/24 01:10 05/28/24 20:57 Range/Units POC Glucose 231 H 70-106 mg/dl White Blood Count 4.2 L 4.4-10.8 10^3/uL Red Blood Count 5.19 4.0-5.20 10^6/uL Hemoglobin 16.2 12.2-16.2 g/dL Hematocrit 49.7 H 36.0-46.0 % Mean Corpuscular Volume 95.7 80.0-100.0 fL Mean Corpuscular Hemoglobin 31.2 28.0-32.0 pg Mean Corpuscular Hemoglobin Concent 32.6 32.0-36.0 g/dL Red Cell Distribution Width 15.9 H 11.8-14.3 % Platelet Count 166 140-450 10^3/uL Mean Platelet Volume 9.4 6.9-10.8 fL Neutrophils (%) (Auto) 86.6 H 37.0-80.0 % Lymphocytes (%) (Auto) 5.6 L 10.0-50.0 % Monocytes (%) (Auto) 7.7 0.0-12.0 % Eosinophils (%) (Auto) 0.0 0.0-7.0 % Basophils (%) (Auto) 0.1 0.0-2.0 % Neutrophils # (Auto) 3.7 1.6-8.6 10 ^3/uL Lymphocytes # (Auto) 0.2 L 0.4-5.4 10 ^3/uL Monocytes # (Auto) 0.3 0-1.3 10 ^3/uL Eosinophils # (Auto) 0 0-0.8 10 ^3/uL Basophils # (Auto) 0 0-0.2 10 ^3/uL Nucleated Red Blood Cells 0.4 % Sodium Level 138 136-145 mmol/L Potassium Level 4.7 3.5-5.1 mmol/L Chloride Level 105 98-107 mmol/L Carbon Dioxide Level 22 20-31 mmol/L Anion Gap 11 5-15 Blood Urea Nitrogen 50 H 9-23 mg/dL Creatinine 1.37 H 0.550-1.02 mg/dL Glomerular Filtration Rate Calc 38 >90 mL/min BUN/Creatinine Ratio 36.5 H 10.0-20.0 Serum Glucose 222 H 74-106 mg/dL Hemoglobin A1c 6.0 H <5.7 % A1C Calcium Level 9.5 8.7-10.4 mg/dL Magnesium Level 2.3 1.6-2.6 mg/dL Total Bilirubin 0.6 0.2-1.0 mg/dL Aspartate Amino Transferase (AST) 61 H 13-40 U/L Alanine Aminotransferase (ALT) 81 H 7-40 U/L Alkaline Phosphatase 102 46-116 U/L Troponin I High Sensitivity 295 *H </=34 ng/L Total Protein 6.1 5.7-8.2 g/dL Albumin 4.0 3.2-4.8 g/dL Triglycerides Level 133 < 150 mg/dL Cholesterol Level 123 < 200 mg/dL LDL Cholesterol 62 < 100 mg/dL HDL Cholesterol 35 L 40-59 mg/dL Thyroid Stimulating Hormone (TSH) 2.61 0.55-4.78 uIU/mL Blood Gas Specimen Type Arterial Blood Gas Sample Site Left radial Blood Gas Patient Temperature 37.0 Arterial Blood Date Drawn [id number] Arterial Blood pH 7.310 L 7.350-7.450 Arterial Blood Partial Pressure CO2 43.4 32.0-45.0 mmHg Arterial Blood Partial Pressure O2 92.8 83.0-108.0 mmHg Arterial Blood HCO3 21.4 21.0-28.0 mmol/L Arterial Blood Oxygen Saturation 96.1 94.0-98.0 % Arterial Blood Base Excess -4.8 L -2.0-3.0 mmol/L Arterial Blood Oxyhemoglobin 94.5 94.0-98.0 % Arterial Blood Carboxyhemoglobin 1.1 0.5-1.5 % Arterial Blood Methemoglobin 0.6 0.0-1.5 % Glenn Test Yes Blood Gas Total Hemoglobin 16.60 H 12.0-16.0 g/dL Blood Gas Liter Flow 5.00 Blood Gas Modality Nasal cannula FiO2 % 40.0 Lactic Acid Level 1.8 0.4-2.0 mmol/L Test 05/28/24 18:19 05/28/24 17:30 05/28/24 17:14 Range/Units Influenza Type A Antigen Positive Negative Influenza Type B Antigen Negative Negative SARS-CoV-2 Antigen (Rapid) Negative NEGATIVE B-Type Natriuretic Peptide 1114.71 0-100 pg/mL Plasma/Serum Blood Alcohol < 3.0 <10 mg/dL Urine Color Yellow Yellow Urine Clarity Turbid H Clear Urine pH 5.5 5.0-9.0 Urine Specific [place] 1.024 1.001-1.035 Urine Protein 1+ H Negative Urine Ketones Negative Negative Urine Blood Trace H Negative /uL Urine Nitrite Negative Negative Urine Bilirubin Negative Negative Urine Urobilinogen 2 H Negative mg/dL Urine Leukocyte Esterase Negative Negative /uL Urine RBC 2 0 - 4 /hpf Urine Microscopic WBC 3 0-5 /HPF Urine Squamous Epithelial Cells Few <5 /hpf Urine Bacteria None seen None Seen /hpf Urine Hyaline Casts Mod 0 - 2 /lpf Urine Waxy Casts Few 0 /lpf Urine Mucus Few None Seen Urine Glucose Normal Normal mg/dL Urine Opiates Screen Neg NEGATIVE Urine Fentanyl Screen Neg NEGATIVE Urine Barbiturates Screen Neg NEGATIVE Urine Phencyclidine Screen Neg NEGATIVE Urine Amphetamines Screen Neg NEGATIVE Urine Benzodiazepines Screen Neg NEGATIVE Urine Cocaine Screen Neg NEGATIVE Urine Cannabinoids Screen Neg NEGATIVE Assessment AFib with rapid ventricular response likely related to underlying infection and fluid overload NSTEMI likely type 2 due to underlying infection Acute on chronic diastolic CHF CAD status post PCIs x9 stents Severe mitral stenosis Status post TAVR Mild tricuspid regurgitation Mild aortic insufficiency Peripheral arterial disease Acute on chronic hypoxic respiratory failure Sepsis due to Pneumonia, viral versus atypical, versus Gram-positive versus Gram-negative bacteria Influenza type a infection CHIKA , likely prerenal Transaminitis Type 2 diabetes Plan/Recommendation Continue beta-miguel for rate control Continue amiodarone drip Recommend treating underlying infection, antibiotics, broad-spectrum antibiotics, pending pancultures Continue diuresis Lasix 40 mg IV bid [id number]: 6 points HAS-BLED: 2 points Continue therapeutic Lovenox Discontinue DAPT Echocardiogram shows an ejection fraction of 40%, severe LVH, flattened IV septum, RV enlarged, RV failure, biatrial enlargement, severe MS, moderate to severe tricuspid regurgitation Patient had a recent left heart catheterization in 2022, which did not show any significant occlusion. Case was discussed with Dr. Abraham seen with resident, agree with plan formulated together pt is very complex hf ocad s/p cath done 2022 , cath reviewed, pt has severe valve disorder, cont current tx rate control patient Plan discussed with: Patient, Other (RN) ANTIONE SWANSON RESIDENT May 29, 2024 10:59 JULIA ABRAHAM MD May 29, 2024 17:10
--- NOTE | 2024-05-29 12:08 | DVH ---
BILATERAL Lower Extremity Arterial Duplex Date: 05/29/2024 10:50 AM Clinical History: Pain, rule out peripheral artery disease Comparison: US BILAT LOW EXT ART DUPLEX on DOS: 09/16/23 Technique: Duplex Doppler evaluation including color Doppler and spectral/pulsed waveform analysis of the lower extremity arteries was performed. Finding: RIGHT: Peak systolic velocities are as follows: K[employer]AK[employer] IN[employer] 62 cm/s Deep femoral 35 cm/s SFA proximal 34 cm/s SFA mid-portion 115 cm/s SFA distal 41 cm/s Popliteal 19 cm/s Posterior tibial 13 cm/s Dorsalis pedis 19 cm/s The waveforms are monophasic in the right popliteal artery, right posterior tibial artery and right d orsalis pedis artery.. 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 REFERENCE VALUES, [facility] ([facility]) vascular Imaging Lab Criteria: Peak systolic velocity ranges (in cm/sec) are as follows: <150 cm/s - <20 % stenosis 150-200 cm/s - 20-49% stenosis 200-300 cm/s - 50-75% stenosis >300 cm/s -> 75% stenosis IMPRESSION: 50-75% stenosis of the left mid superficial femoral artery. 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 Peripheral vascular disease in the bilateral lower extremities.
[2024-05-29] MEDS: FUROSEMIDE 40 MG/4 ML VIAL IV ONE (13:23)
--- NOTE | 2024-05-29 13:32 | ECG ---
[facility] Test Date: 2024-05-28 Test Time: 16:34:40 Pat Name: DUANE ROSEN Department: ER Room: [address] [place] [address] A Gender: F [employer]: ER : 1940 Requested By: DARELL COREY Order Number: [id number] Reading MD: Christopher Castrejon Measurements Intervals [place] Rate: 157 P: 0 PA: 0 QRS: 119 QRSD: 83 T: 242 QT: 244 QTc: 395 Interpretive Statements Atrial fibrillation with rapid V-rate Right axis deviation Consider left ventricular hypertrophy Anterior Q waves, possibly due to LVH Repolarization abnormality, prob rate related Electronically Signed On 06-01-2024 8:20:54 PST by Christopher Castrejon Please click the below link to view image of tracing.
--- NOTE | 2024-05-29 15:19 | DVHSR ---
APPROVED REPORT EXAM: Two-dimensional and M-mode echocardiogram with Doppler and color Doppler. Blood Pressure: 119/86 mmHg INDICATION Elevated Trops Surgery/Intervention Valve Replacement: Type: TAVR RISK FACTORS Height: 5' 5", Weight: 158 DIMENSIONS LVDd2.7 (3.8-5.7cm)LA (2D)3.5 (1.9-4.0cm)Aortic Root (2.0-3.7cm) LVDs2.2 (2.5-4.0cm)LA (MM) (1.9-4.0cm)Aortic Cusp Exc (1.5-2.0cm) EF (%) 50.0 (55-70%)Rt. Atrium4.5 (1.9-4.0cm)Asc. Aorta cm IVSd1.2 (0.7-1.1cm)RV (D) (1.8-2.4cm) PWd1.4 (0.7-1.1cm) Mitral Valve MitralMitral Stenosis E/A ratio0.02D MVAcm2 Aortic Valve Aortic ValveAortic Stenosis AI P 1/2 Pmax994.66ms Pulmonic Valve V20.60m/s Tricuspid Valve TR Velocity3.60m/s [id number] Other Information Quality : Technically LimitedRhythm : Atrial Fibrillation Technically limited study due to rhythm. Conclusion lvef 40% by visual estimate severe LVH small LV cavity flattened IV septum RV enlarged marked RV failure biatrial enlargement severe MS s/p TAVR, normal function moderate to severe tricuspid regurg
--- NOTE | 2024-05-29 17:27 | DVHPNRES ---
Progress Note Date Seen: May 29, 2024 Resident Creating Document: MADI MENDOZA RESIDENT Medical Necessity Reason Pt with a Central, PICC or Fol: No The following are medically ne: Jenkins Catheter Reason for jenkins catheter: Strict I&O Subjective Review of Systems 83-year-old female patient with past medical history of COPD, heart failure reduced ejection fraction, cor pulmonale, hypertension, coronary artery disease status post multiple PCI, severe mitral stenosis status post TAVR and paroxysmal atrial fibrillation. Patient was brought to the emergency department with a chief complaint of palpitations and altered level of consciousness, per family the patient has been deteriorating for the last couple of days presenting weakness and shortness of breaths. In the ER, the EKG showed atrial fibrillation with rapid ventricular response, heart rate went up until 145 and patient was complaining of chest pain and palpitations for which the patient was started on amiodarone drip and therapeutic Lovenox, cardiology was consulted who determined to continue amiodarone drip in addition to metoprolol tartrate 50 mg b.i.d., days. Dual antiplatelet therapy and continue with therapeutic Lovenox. Workup revealed positive influenza type a for which the patient was started on oseltamivir, chest x-ray showed interstitial markings consistent with viral pneumonia and pulmonary congestion signs, patient is currently on furosemide b.i.d. on admission patient was started on oxygen supplementation 6 L, currently the patient went down to 3 L, she uses oxygen supplementation at home 2 L. On admission lactic acid was 2.3, heart rate more than 120 (AFib RVR ), respiratory rate ( increased), temperature was consistently normal, leukocytes 5.1, neutrophils percentage 79.4. the next laboratory results showed lactic acid 1.8, heart rate 107, temperature wnl. although broad empiric antibiotic with vanco and ceftriaxone was started on admission that was subsequently de- escalated to doxycycline IV and oseltamivir as the following results were available, that supported diagnosis of viral pneumonia with possible superimposed bacterial pneumonia for which the patient will also be started on ceftriaxone. we will continue monitoring for changes in temperature, white blood cell count and patient's clinical status . Recent echocardiogram showed 40% ejection fraction with moderate -severe tricuspid regurgitation, RVSP 60 , TR velocity 3.6,mmHg consistent with cor pulmonale and pulmonary hypertension likely cause due to left heart dysfunction, even though the patient is now almost in her baseline oxygen supplementation requirements, based on comorbidities this patient is a moderate / high risk for pulmonary embolism for which the patient underwent DVT ultrasound that came negative,and D-dimer. As previously mentioned, chest x-ray showed pulmonary vascular congestion, BNP more than 1000 and lower extremity edema, based on these the patient was started on furosemide 40 mg IV b.i.d. in the past 24 hours I&O balance was +1141. for which the patient Lasix was increased to 60 mg IV b.i.d. Vascular team was consulted based on arterial Doppler ultrasound findings that showed 50-75% stenosis of the left mid superficial femoral artery. Occlusion of the left dorsalis pedis artery and Peripheral vascular disease in the bilateral lower extremities. Patient was evaluated at bedside, she reports severe lower extremity pain bilaterally on palpation, patient was poor historian, on examination she seems to be weak and slightly disoriented. She knows her name and is oriented on p lace, person but not on time. Review of systems: Constitutional: No: Fever, Chills, Sweats, Weakness, Malaise, Other Eyes: No: Pain, Vision change, Conjunctivae inflammation, Eyelid inflammation, Other, Redness ENT: No: Ear pain, Ear discharge, Nose pain, Nose discharge, Nose congestion, Mouth pain, Mouth swelling, Throat pain, Throat swelling, Other Respiratory: Cough present, Shortness of breath, Wheezing, Hemoptysis, Pleuritic Pain, Sputum Cardiovascular: yes: Chest Pain, Palpitations, Orthopnea, Paroxysmal Noc. Dyspnea, Edema, Lt Headedness, Other Gastrointestinal: No: Nausea, Vomiting, Diarrhea, Constipation, Melena, Hematochezia, Other Musculoskeletal: Yes: Lower extremity pain, markedly increased on feet: neck pain, shoulder pain, arm pain, back pain, hand pain Neurological:; Yes: Weakness, Numbness, Incoordination, Change in speech, Confusion Patient reports: No new complaints Objective vital signs Vital Sign Date Time Temp Pulse Resp B/P (MAP) Pulse Ox O2 Delivery O2 Flow Rate FiO2 05/29/24 13:23 107/83 05/29/24 13:00 106 22 96 05/29/24 09:40 Nasal Cannula* 3 32 05/29/24 08:35 98.1 98.1 Total Intake and Output 05/28/24 05/28/24 05/29/24 15:00 23:00 07:00 Intake Total 900 ml 683.31 ml Output Total 425 ml Balance 900 ml 258.31 ml medications Current Medications Medications Dose Ordered Sig/Keith Route Start Time Stop Time Status Last Admin Dose Admin Enoxaparin Sodium 70 mg DAILY@2200 SC 05/28/24 22:00 05/28/24 21:37 70 MG Nitroglycerin 0.4 mg Q5MINP PRN SL 05/28/24 22:15 Morphine Sulfate 2 mg Q30M PRN IV 05/28/24 22:15 Doxycycline Hyclate 100 ml @ 50 mls/hr Q12H IV 05/29/24 01:00 05/29/24 13:24 50 MLS/HR Ipratropium [place] 0.5 mg Q4HPRN PRN NEB 05/29/24 01:00 05/29/24 01:51 0.5 MG Levalbuterol HCl 0.625 mg Q4HPRN PRN NEB 05/29/24 02:00 05/29/24 09:40 0.625 MG Diagnostic Test (Pha) 1 strip ACHS 05/29/24 07:00 05/29/24 12:00 1 STRIP Insulin Human Regular ACHS SC 05/29/24 07:00 05/29/24 12:13 3 UNITS Dextrose 50 ml UD PRN IV 05/29/24 03:00 Oseltamivir Phosphate 30 mg Q12HR PO 05/29/24 22:00 06/02/24 22:01 Metoprolol Tartrate 50 mg BID PO 05/29/24 10:10 05/29/24 10:37 50 MG Atorvastatin Calcium 20 mg HS PO 05/29/24 22:00 Furosemide 40 mg BID IV 05/29/24 22:00 Examination Examination General Appearance: Frail appearance, disheveled, thin, Oriented X2, moderate/severe distress Respiratory: Goals bilaterally, wheezing, on nasal cannula 3 L Cardiovascular: Irregular rate and rhythm, S3 med no S4 Abdominal: Normal bowel sounds Extremities: Edema 2+, pain on palpation lower extremities Skin: No rashes, No breakdown Neuro: Strength at 3/5 X4 ext, decreased tone, numbness, Reflexes 2+ laboratory and microbiology Laboratory Tests 05/29/24 05:48 Test 05/29/24 05:48 Range/Units Serum Glucose 222 H 74-106 mg/dL Microbiology Date/Time Source Procedure Growth Status 05/29/24 10:00 Nose MRSA Screen - Final Complete 05/28/24 17:14 Voided Urine Urine Culture - Preliminary Resulted Problem List/Assessment/Plan Problem List/Assessment/Plan NEUROLOGY # Acute toxic/metabolic encephalopathy due to severe sepsis due to viral/bacterial Gram-positive Gram-negative pneumonia -[place] coma scale 13 -head CT showed no abnormalities -treat underlying condition CARDIOVASCULAR # NSTEMI, likely type 2 likely secondary to an oxygen supply/demand mismatch likely multifactorial to severe sepsis/atrial fibrillation with rapid ventricular response/CHF exacerbation # unstable atrial fibrillation with rapid ventricular response likely due to severe sepsis due to viral/bacterial pneumonia(Gram-positive Gram-negative) # acute on chronic heart failure reduced ejection fraction exacerbation NYHA III due to AFib RVR due to severe sepsis # history of hypertension # history of coronary artery disease status post multiple PCI # Ruled out PE # history of severe mitral stenosis status post TAVR - Echo completed, 40% ejection fraction with evidence of cor pulmonale - Orderd new LE duplex venous scan, negative for dvt - troponin elevation, downtrending - DVT ultrasound was negative - currently on amiodarone drip, metoprolol for rate and rhythm control - strict I&Os, positive balance today, furosemide was increased to 60 mg b.i.d. IV - therapeutic Lovenox RESPIRATORY # acute hypoxemic respiratory failure due to acute on chronic CHF exacerbation NYHA III/COPD exacerbation in the setting of severe sepsis due to viral/bacterial pneumonia # Sepsis secondary to Viral pneumonia with possible superimposed atypical/Gram- positive and Gram-negative bacterial pneumonia # influenza type a pneumonia # COPD exacerbation due to severe sepsis due to viral/bacterial pneumonia - currently on nasal cannula 2 L - currently on breathing treatment with ipratropium and levalbuterol p.r.n. - currently on oseltamivir p.o. GI /KIDNEY # CHIKA due to cardiorenal syndrome type 1 in the setting of heart failure exacerbation # CHIKA due to the VMN - furosemide 60 mg b.i.d. IV - monitor electrolytes, and kidney function as treating underlying condition ENDO # uncontrolled type 2 diabetes -sliding scale insulin - Accu-Cheks - dextrose prn, if glucose less than 60 ID # severe sepsis likely due to viral/bacterial pneumonia # influenza type a pneumonia - ceftriaxone and doxycycline IV - oseltamivir p.o. - monitor vital signs, with a cell count, lactic acid 1.8 - blood cultures and urine cultures pending METABOLIC # Uncontrolled type 2 diabetes mellitus # non-anion gap metabolic acidosis likely due to acute kidney failure, bun 50 - monitor as treating underlying condition SKIN # chronic limb-threatening ischemia due to peripheral artery disease -vascular surgery consultation - arterial Doppler, completed Goals of care discussed with the family for more than 42 minutes: Full code status Plan of care updated to family at bedside Case discussed with . Plan discussed with: Patient, Spouse My Orders My Orders Orders - MADI MENDOZA Procedure Category Date Status Time Bilat Low Ext Art US 05/29/24 Resulted Duplex 10:15 Consult CONS 05/29/24 Transmitted Vascular/Endovascular 12:41 D-Dimer LAB 05/29/24 Logged 17:09 MADI MENDOZA May 29, 2024 17:27
--- NOTE | 2024-05-29 18:26 | DVH ---
BILATERAL LOWER EXTREMITY VENOUS DOPPLER ULTRASOUND CLINICAL HISTORY: ro dvt TECHNIQUE: Grayscale ultrasound with compression, color Doppler flow imaging with pulsed duplex sonog alen of the bilateral lower extremity deep venous system from the common femoral veins through the p opliteal veins is performed. COMPARISON: None FINDINGS: Right common femoral vein: Negative. Right greater saphenous vein: Negative. Right deep femoral vein: Negative. Right femoral vein: Negative. Right popliteal vein: Negative. Left common femoral vein: Negative. Left greater saphenous vein: Negative. Left deep femoral vein: Negative. Left femoral vein: Negative. Left popliteal vein: Negative. Other: Bilateral popliteal trifurcations and posterior tibial veins demonstrate color flow. Subcutane ous edema noted bilaterally. IMPRESSION: No sonographic evidence of deep venous thrombosis in either lower extremity at this time.
[2024-05-29] MEDS: OSELTAMIVIR 30 MG CAP PO SCH (21:51)
[2024-05-29] MEDS: cefTRIAXone 1GM/50ML D5W 50 ML IV ONE (21:52)
[2024-05-29] MEDS: ATORVASTATIN 20 MG TAB PO SCH (21:52)
[2024-05-29] MEDS ORDERED: FUROSEMIDE 40 MG/4 ML VIAL IV SCH (22:00)
[2024-05-30 00:22] VITALS: O2SAT 98
[2024-05-30 04:23] LABS: Basophils # (auto) 0 10 ^3/uL (0-0.2); Basophils % (auto) 0.1 % (0.0-2.0); Eosinophils # (auto) 0 10 ^3/uL (0-0.8); Eosinophils % (auto) 0.1 % (0.0-7.0); Hematocrit 49.1 % (36.0-46.0); Hemoglobin 15.7 g/dL (12.2-16.2); Lymphocytes # (auto) 0.4 10 ^3/uL (0.4-5.4); Lymphocytes % (auto) 5.9 % (10.0-50.0); Mean Corpuscular Hemoglobin 30.5 pg (28.0-32.0); Mean Corpuscular Volume 95.3 fL (80.0-100.0); Monocytes # (auto) 0.9 10 ^3/uL (0-1.3); Monocytes % (auto) 13.7 % (0.0-12.0); Neutrophils # (auto) 5.5 10 ^3/uL (1.6-8.6); Neutrophils % (auto) 80.2 % (37.0-80.0); Nucleated Red Blood Cells % 0.3 %; Platelet Count (auto) 169 10^3/uL (140-450); Red Blood Cells 5.15 10^6/uL (4.0-5.20); Red Cell Distribution Width 15.6 % (11.8-14.3); White Blood Cell 6.8 10^3/uL (4.4-10.8)
[2024-05-30 04:34] LABS: Chloride 104 mmol/L (98-107); Potassium 3.7 mmol/L (3.5-5.1); Sodium 139 mmol/L (136-145)
[2024-05-30 04:35] LABS: Anion Gap 8 (5-15); Calcium 9.3 mg/dL (8.7-10.4); Carbon Dioxide 27 mmol/L (20-31)
[2024-05-30 04:40] LABS: BUN/Creatinine Ratio 38.1 (10.0-20.0)
[2024-05-30 04:41] LABS: Magnesium 2.1 mg/dL (1.6-2.6)
[2024-05-30 04:47] LABS: Blood Urea Nitrogen 37 mg/dL (9-23); Glucose 116 mg/dL (74-106)
[2024-05-30 05:42] VITALS: PULSE 95; RESP 22; O2SAT 97
[2024-05-30] MEDS: FUROSEMIDE 100 MG/10ML VIAL IV SCH (05:53)
[2024-05-30 08:08] VITALS: PULSE 127; RESP 17; O2SAT 92
[2024-05-30] MEDS: cefTRIAXone 1GM/50ML D5W 50 ML IV SCH (08:31)
--- NOTE | 2024-05-30 13:13 | DVHPN2 ---
Subjective The patient is seen and examined at bedside. The patient is very confused . Reviewed: Care Plan, H&P, Labs, Medications, Previous Orders, Radiology Changes from previous H/P or p: No Changes Cardiovascular: Chest Pain, Palpitations, Orthopnea, Paroxysmal Noc. Dyspnea, E tabitha, Lt Headedness, Other Respiratory: Cough, Dry, Shortness of breath, SOB with excertion, Wheezing, H emoptysis, Pleuritic Pain, Sputum, Other Objective Vitals Vital Signs Date Time Temp Pulse Resp B/P (MAP) Pulse Ox O2 Delivery O2 Flow Rate FiO2 05/30/24 12:00 119 21 119/88 (98) 92 05/30/24 08:08 Nasal Cannula* 4 36 05/30/24 08:08 98.0 98.0 Intake/Output Intake and Output 05/30/24 07:00 Intake Total 558.21 ml Output Total 525 ml Balance 33.21 ml Intake IV Total 558.21 ml Output Urine Total 525 ml General Appearance: Alert HEENT: Atraumatic, PERRLA, EOMI Neck: Supple Lungs: Clear to auscultation, Normal air movement Cardiovascular: Regular rate, Normal S1, Normal S2, No murmurs, Gallops, Rubs Abdomen: Normal bowel sounds, Soft, No tenderness Psych/Mental Status: Other (Confused, sleepy) Medications Current Medications Medications Dose Ordered Sig/Keith Route Start Time Stop Time Status Last Admin Dose Admin Nitroglycerin 0.4 mg Q5MINP PRN SL 05/28/24 22:15 Morphine Sulfate 2 mg Q30M PRN IV 05/28/24 22:15 Doxycycline Hyclate 100 ml @ 50 mls/hr Q12H IV 05/29/24 01:00 05/30/24 00:39 50 MLS/HR Ipratropium [place] 0.5 mg Q4HPRN PRN NEB 05/29/24 01:00 05/29/24 01:51 0.5 MG Levalbuterol HCl 0.625 mg Q4HPRN PRN NEB 05/29/24 02:00 05/29/24 09:40 0.625 MG Diagnostic Test (Pha) 1 strip ACHS 05/29/24 07:00 05/30/24 11:50 1 STRIP Insulin Human Regular ACHS SC 05/29/24 07:00 05/30/24 11:55 3 UNITS Dextrose 50 ml UD PRN IV 05/29/24 03:00 Oseltamivir Phosphate 30 mg Q12HR PO 05/29/24 22:00 06/02/24 22:01 05/30/24 09:36 30 MG Metoprolol Tartrate 50 mg BID PO 05/29/24 10:10 05/30/24 09:36 50 MG Atorvastatin Calcium 20 mg HS PO 05/29/24 22:00 05/29/24 21:52 20 MG Furosemide 60 mg BIDD IV 05/30/24 06:00 05/30/24 05:53 60 MG Ceftriaxone Sodium 50 ml @ 100 mls/hr DAILY@09 IV 05/30/24 09:00 05/30/24 08:31 100 MLS/HR Enoxaparin Sodium 70 mg BID SC 05/30/24 22:00 Laboratory Results Laboratory Tests 05/30/24 03:44 Chemistry Test 05/30/24 03:44 Calcium Level 9.3 mg/dL (8.7-10.4) Magnesium Level 2.1 mg/dL (1.6-2.6) Coagulation Test 05/29/24 17:29 D-Dimer, Quantitative 1.33 mg/L FEU (0.0-0.49) H Urinalysis Test 05/28/24 17:14 Urine Color Yellow (Yellow) Urine Clarity Turbid (Clear) H Urine pH 5.5 (5.0-9.0) Urine Specific [place] 1.024 (1.001-1.035) Urine Protein 1+ (Negative) H Urine Ketones Negative (Negative) Urine Blood Trace /uL (Negative) H Urine Nitrite Negative (Negative) Urine Bilirubin Negative (Negative) Urine Urobilinogen 2 mg/dL (Negative) H Urine Leukocyte Esterase Negative /uL (Negative) Urine RBC 2 /hpf (0 - 4) Urine Microscopic WBC 3 /HPF (0-5) Urine Squamous Epithelial Cells Few /hpf (<5) Urine Bacteria None seen /hpf (None Seen) Urine Hyaline Casts Mod /lpf (0 - 2) Urine Waxy Casts Few /lpf (0) Urine Mucus Few (None Seen) Urine Glucose Normal mg/dL (Normal) Microbiology Microbiology Date/Time Source Procedure Growth Status 05/29/24 10:00 Nose MRSA Screen - Final Complete 05/28/24 17:30 Blood Blood Culture - Preliminary NO GROWTH AFTER 24 HOURS OF INCUBATION. Resulted 05/28/24 17:14 Voided Urine Urine Culture - Preliminary Resulted Labs and/or images reviewed: Labs reviewed by me Assessment/Plan Assessment/Plan NEUROLOGY # Acute toxic/metabolic encephalopathy due to severe sepsis due to viral/bacterial Gram-positive Gram-negative pneumonia -[place] coma scale 13 -head CT showed no abnormalities -treat underlying condition CARDIOVASCULAR # NSTEMI, likely type 2 likely secondary to an oxygen supply/demand mismatch likely multifactorial to severe sepsis/atrial fibrillation with rapid ventricular response/CHF exacerbation # unstable atrial fibrillation with rapid ventricular response likely due to severe sepsis due to viral/bacterial pneumonia(Gram-positive Gram-negative) # acute on chronic heart failure reduced ejection fraction exacerbation NYHA III due to AFib RVR due to severe sepsis # history of hypertension # history of coronary artery disease status post multiple PCI # Ruled out PE # history of severe mitral stenosis status post TAVR - Echo completed, 40% ejection fraction with evidence of cor pulmonale - Orderd new LE duplex venous scan, negative for dvt - troponin elevation, downtrending - DVT ultrasound was negative - currently on amiodarone drip, metoprolol for rate and rhythm control - strict I&Os, positive balance today, furosemide was increased to 60 mg b.i.d. IV - therapeutic Lovenox RESPIRATORY # acute hypoxemic respiratory failure due to acute on chronic CHF exacerbation NYHA III/COPD exacerbation in the setting of severe sepsis due to viral/bacterial pneumonia # Sepsis secondary to Viral pneumonia with possible superimposed atypical/Gram- positive and Gram-negative bacterial pneumonia # influenza type a pneumonia # COPD exacerbation due to severe sepsis due to viral/bacterial pneumonia - currently on nasal cannula 2 L - currently on breathing treatment with ipratropium and levalbuterol p.r.n. - currently on oseltamivir p.o. GI /KIDNEY # CHIKA due to cardiorenal syndrome type 1 in the setting of heart failure exacerbation # CHIKA due to the VMN - furosemide 60 mg b.i.d. IV - monitor electrolytes, and kidney function as treating underlying condition ENDO # uncontrolled type 2 diabetes -sliding scale insulin - Accu-Cheks - dextrose prn, if glucose less than 60 ID # severe sepsis likely due to viral/bacterial pneumonia # influenza type a pneumonia - ceftriaxone and doxycycline IV - oseltamivir p.o. - monitor vital signs, with a cell count, lactic acid 1.8 - blood cultures and urine cultures pending METABOLIC # Uncontrolled type 2 diabetes mellitus # non-anion gap metabolic acidosis likely due to acute kidney failure, bun 50 - monitor as treating underlying condition SKIN # chronic limb-threatening ischemia due to peripheral artery disease -vascular surgery consultation - arterial Doppler, completed Continuing current management This medical document was created using an electronic medical record system with [employer] direct computerized dictation system. Although this document has been carefully reviewed, there may still be some phonetic and typographical errors. These areas are purely typographical due to imperfections of the software programs, and do not reflect any compromise in the patient's medical care. Plan discussed with: Patient Date of Service: May 30, 2024 Billing Provider: BON DOUGLAS MD Common Visit Codes: [id number] INP/OBS CARE(HIGH) BON DOUGLAS MD May 30, 2024 13:13
[2024-05-30 13:51] VITALS: O2SAT 94
[2024-05-30 18:51] VITALS: O2SAT 96
[2024-05-30 19:30] VITALS: PULSE 114; RESP 24; O2SAT 97
[2024-05-30] MEDS: ENOXAPARIN SOD 80 MG/0.8ML SYRINGE SC SCH (22:06)
--- NOTE | 2024-05-31 12:30 | DVHPN2 ---
Subjective The patient is seen and examined at bedside. The patient is very confused . Reviewed: Care Plan, H&P, Labs, Medications, Previous Orders, Radiology Changes from previous H/P or p: No Changes Cardiovascular: Chest Pain, Palpitations, Orthopnea, Paroxysmal Noc. Dyspnea, E tabitha, Lt Headedness, Other Respiratory: Cough, Dry, Shortness of breath, SOB with excertion, Wheezing, H emoptysis, Pleuritic Pain, Sputum, Other Objective Vitals Vital Signs Date Time Temp Pulse Resp B/P (MAP) Pulse Ox O2 Delivery O2 Flow Rate FiO2 05/31/24 12:00 109 05/31/24 11:50 140/82 05/31/24 09:00 24 98 05/31/24 08:35 Nasal Cannula* 4 36 05/30/24 20:00 98.1 98.1 Intake/Output Intake and Output 05/31/24 07:00 Intake Total 449.92 ml Output Total 1200 ml Balance -750.08 ml Intake IV Total 449.92 ml Output Urine Total 1200 ml General Appearance: Alert HEENT: Atraumatic, PERRLA, EOMI Neck: Supple Lungs: Clear to auscultation, Normal air movement Cardiovascular: Regular rate, Normal S1, Normal S2, No murmurs, Gallops, Rubs Abdomen: Normal bowel sounds, Soft, No tenderness Psych/Mental Status: Other (Confused, sleepy) Medications Current Medications Medications Dose Ordered Sig/Keith Route Start Time Stop Time Status Last Admin Dose Admin Nitroglycerin 0.4 mg Q5MINP PRN SL 05/28/24 22:15 Morphine Sulfate 2 mg Q30M PRN IV 05/28/24 22:15 Doxycycline Hyclate 100 ml @ 50 mls/hr Q12H IV 05/29/24 01:00 05/31/24 00:42 50 MLS/HR Diagnostic Test (Pha) 1 strip ACHS 05/29/24 07:00 05/31/24 11:51 1 STRIP Insulin Human Regular ACHS SC 05/29/24 07:00 05/31/24 12:01 3 UNITS Dextrose 50 ml UD PRN IV 05/29/24 03:00 Oseltamivir Phosphate 30 mg Q12HR PO 05/29/24 22:00 06/02/24 22:01 05/31/24 10:36 30 MG Metoprolol Tartrate 50 mg BID PO 05/29/24 10:10 05/31/24 10:37 50 MG Atorvastatin Calcium 20 mg HS PO 05/29/24 22:00 05/30/24 22:04 20 MG Furosemide 60 mg BIDD IV 05/30/24 06:00 05/31/24 06:31 60 MG Ceftriaxone Sodium 50 ml @ 100 mls/hr DAILY@09 IV 05/30/24 09:00 05/31/24 09:05 100 MLS/HR Enoxaparin Sodium 70 mg BID SC 05/30/24 22:00 05/31/24 10:36 70 MG Laboratory Results Laboratory Tests 05/30/24 03:44 Urinalysis Test 05/28/24 17:14 Urine Color Yellow (Yellow) Urine Clarity Turbid (Clear) H Urine pH 5.5 (5.0-9.0) Urine Specific [place] 1.024 (1.001-1.035) Urine Protein 1+ (Negative) H Urine Ketones Negative (Negative) Urine Blood Trace /uL (Negative) H Urine Nitrite Negative (Negative) Urine Bilirubin Negative (Negative) Urine Urobilinogen 2 mg/dL (Negative) H Urine Leukocyte Esterase Negative /uL (Negative) Urine RBC 2 /hpf (0 - 4) Urine Microscopic WBC 3 /HPF (0-5) Urine Squamous Epithelial Cells Few /hpf (<5) Urine Bacteria None seen /hpf (None Seen) Urine Hyaline Casts Mod /lpf (0 - 2) Urine Waxy Casts Few /lpf (0) Urine Mucus Few (None Seen) Urine Glucose Normal mg/dL (Normal) Microbiology Microbiology Date/Time Source Procedure Growth Status 05/29/24 10:00 Nose MRSA Screen - Final Complete 05/28/24 17:30 Blood Blood Culture - Preliminary NO GROWTH AFTER 48 HOURS OF INCUBATION. Resulted 05/28/24 17:14 Voided Urine Urine Culture - Final Complete Labs and/or images reviewed: Labs reviewed by me Assessment/Plan Assessment/Plan NEUROLOGY # Acute toxic/metabolic encephalopathy due to severe sepsis due to viral/bacterial Gram-positive Gram-negative pneumonia -[place] coma scale 13 -head CT showed no abnormalities -treat underlying condition CARDIOVASCULAR # NSTEMI, likely type 2 likely secondary to an oxygen supply/demand mismatch likely multifactorial to severe sepsis/atrial fibrillation with rapid ventricular response/CHF exacerbation # unstable atrial fibrillation with rapid ventricular response likely due to severe sepsis due to viral/bacterial pneumonia(Gram-positive Gram-negative) # acute on chronic heart failure reduced ejection fraction exacerbation NYHA III due to AFib RVR due to severe sepsis # history of hypertension # history of coronary artery disease status post multiple PCI # Ruled out PE # history of severe mitral stenosis status post TAVR - Echo completed, 40% ejection fraction with evidence of cor pulmonale - Orderd new LE duplex venous scan, negative for dvt - troponin elevation, downtrending - DVT ultrasound was negative - currently on amiodarone drip, metoprolol for rate and rhythm control - strict I&Os, positive balance today, furosemide was increased to 60 mg b.i.d. IV - therapeutic Lovenox RESPIRATORY # acute hypoxemic respiratory failure due to acute on chronic CHF exacerbation NYHA III/COPD exacerbation in the setting of severe sepsis due to viral/bacterial pneumonia # Sepsis secondary to Viral pneumonia with possible superimposed atypical/Gram- positive and Gram-negative bacterial pneumonia # influenza type a pneumonia # COPD exacerbation due to severe sepsis due to viral/bacterial pneumonia - currently on nasal cannula 2 L - currently on breathing treatment with ipratropium and levalbuterol p.r.n. - currently on oseltamivir p.o. GI /KIDNEY # CHIKA due to cardiorenal syndrome type 1 in the setting of heart failure exacerbation # CHIKA due to the VMN - furosemide 60 mg b.i.d. IV - monitor electrolytes, and kidney function as treating underlying condition ENDO # uncontrolled type 2 diabetes -sliding scale insulin - Accu-Cheks - dextrose prn, if glucose less than 60 ID # severe sepsis likely due to viral/bacterial pneumonia # influenza type a pneumonia - ceftriaxone and doxycycline IV - oseltamivir p.o. - monitor vital signs, with a cell count, lactic acid 1.8 - blood cultures and urine cultures pending METABOLIC # Uncontrolled type 2 diabetes mellitus # non-anion gap metabolic acidosis likely due to acute kidney failure, bun 50 - monitor as treating underlying condition SKIN # chronic limb-threatening ischemia due to peripheral artery disease -vascular surgery consultation - arterial Doppler, completed Continuing current management This medical document was created using an electronic medical record system with [employer] direct computerized dictation system. Although this document has been carefully reviewed, there may still be some phonetic and typographical errors. These areas are purely typographical due to imperfections of the software programs, and do not reflect any compromise in the patient's medical care. Plan discussed with: Patient Date of Service: May 31, 2024 Billing Provider: BON DOUGLAS MD Common Visit Codes: [id number] INP/OBS CARE(HIGH) BON DOUGLAS MD May 31, 2024 12:30
[2024-05-31 19:41] VITALS: PULSE 134; RESP 19; O2SAT 94
[2024-06-01 04:32] LABS: Basophils # (auto) 0 10 ^3/uL (0-0.2); Basophils % (auto) 0.3 % (0.0-2.0); Eosinophils # (auto) 0 10 ^3/uL (0-0.8); Eosinophils % (auto) 0.1 % (0.0-7.0); Hematocrit 50.7 % (36.0-46.0); Hemoglobin 16.6 g/dL (12.2-16.2); Lymphocytes # (auto) 0.5 10 ^3/uL (0.4-5.4); Lymphocytes % (auto) 9.9 % (10.0-50.0); Mean Corpuscular Hemoglobin 30.7 pg (28.0-32.0); Mean Corpuscular Hgb Conc. 32.8 g/dL (32.0-36.0); Mean Corpuscular Volume 93.6 fL (80.0-100.0); Monocytes # (auto) 0.9 10 ^3/uL (0-1.3); Monocytes % (auto) 17.1 % (0.0-12.0); Neutrophils # (auto) 3.8 10 ^3/uL (1.6-8.6); Neutrophils % (auto) 72.6 % (37.0-80.0); Nucleated Red Blood Cells % 0.2 %; Platelet Count (auto) 181 10^3/uL (140-450); Red Blood Cells 5.42 10^6/uL (4.0-5.20); White Blood Cell 5.3 10^3/uL (4.4-10.8)
[2024-06-01 04:39] LABS: Anion Gap 6 (5-15); Sodium 140 mmol/L (136-145)
[2024-06-01 04:40] LABS: Calcium 9.5 mg/dL (8.7-10.4)
[2024-06-01 04:45] LABS: BUN/Creatinine Ratio 28.4 (10.0-20.0); Blood Urea Nitrogen 21 mg/dL (9-23)
[2024-06-01 04:50] LABS: Carbon Dioxide 39 mmol/L (20-31); Chloride 95 mmol/L (98-107); Glucose 119 mg/dL (74-106); Potassium 2.9 mmol/L (3.5-5.1)
[2024-06-01 08:22] VITALS: PULSE 112; RESP 17; O2SAT 96
[2024-06-01] MEDS: POTASSIUM EFFERVESENT TAB 25 MEQ PO ONE (09:24)
[2024-06-01] MEDS: FUROSEMIDE 100 MG/10ML VIAL IV SCH (10:00)
[2024-06-01] MEDS: AMIODARONE HCL 200 MG TAB PO SCH (10:06)
--- NOTE | 2024-06-01 14:50 | ECG ---
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
--- NOTE | 2024-06-01 14:50 | ECG ---
[facility] Test Date: 2024-05-28 Test Time: 19:31:48 Pat Name: DUANE ROSEN Department: ER Room: 0202T Gender: F Environmental Services Specialist: SOLA : 1940 Requested By: MADI HORAN Order Number: [id number] Reading MD: Christopher Castrejon Measurements Intervals [place] Rate: 142 P: 0 PA: 0 QRS: 138 QRSD: 87 T: -40 QT: 304 QTc: 467 Interpretive Statements Atrial fibrillation with rapid V-rate Ventricular premature complex Left posterior fascicular block Consider left ventricular hypertrophy Anterior Q waves, possibly due to LVH Borderline T abnormalities, inferior leads Electronically Signed On 06-04-2024 21:14:09 PST by Christopher Castrejon Please click the below link to view image of tracing.
[2024-06-01 17:01] VITALS: BP 152/60; PULSE 68; RESP 17; TEMP 98.3; O2SAT 95
--- NOTE | 2024-06-01 17:09 | DVHPN2 ---
Subjective The patient is seen and examined at bedside. The patient is very confused . The patient is off vasopressor Reviewed: Care Plan, H&P, Labs, Medications, Previous Orders, Radiology Changes from previous H/P or p: No Changes Cardiovascular: Chest Pain, Palpitations, Orthopnea, Paroxysmal Noc. Dyspnea, E tabitha, Lt Headedness, Other Respiratory: Cough, Dry, Shortness of breath, SOB with excertion, Wheezing, H emoptysis, Pleuritic Pain, Sputum, Other Objective Vitals Vital Signs Date Time Temp Pulse Resp B/P (MAP) Pulse Ox O2 Delivery O2 Flow Rate FiO2 06/01/24 17:01 98.3 68 17 152/60 (90) 95 98.3 06/01/24 08:22 Nasal Cannula* 3 32 Intake/Output Intake and Output 06/01/24 07:00 Intake Total 616.52 ml Output Total 1800 ml Balance -1183.48 ml Intake IV Total 616.52 ml Output Urine Total 1800 ml General Appearance: Alert HEENT: Atraumatic, PERRLA, EOMI Neck: Supple Lungs: Clear to auscultation, Normal air movement Cardiovascular: Regular rate, Normal S1, Normal S2, No murmurs, Gallops, Rubs Abdomen: Normal bowel sounds, Soft, No tenderness Psych/Mental Status: Other (Confused, sleepy) Medications Current Medications Medications Dose Ordered Sig/Keith Route Start Time Stop Time Status Last Admin Dose Admin Nitroglycerin 0.4 mg Q5MINP PRN SL 05/28/24 22:15 Morphine Sulfate 2 mg Q30M PRN IV 05/28/24 22:15 Doxycycline Hyclate 100 ml @ 50 mls/hr Q12H IV 05/29/24 01:00 06/01/24 13:08 50 MLS/HR Diagnostic Test (Pha) 1 strip ACHS 05/29/24 07:00 06/01/24 12:00 1 STRIP Insulin Human Regular ACHS SC 05/29/24 07:00 06/01/24 12:08 2 UNITS Dextrose 50 ml UD PRN IV 05/29/24 03:00 Oseltamivir Phosphate 30 mg Q12HR PO 05/29/24 22:00 06/02/24 22:01 06/01/24 10:05 30 MG Metoprolol Tartrate 50 mg BID PO 05/29/24 10:10 Hold 05/31/24 21:42 50 MG Atorvastatin Calcium 20 mg HS PO 05/29/24 22:00 05/31/24 21:42 20 MG Ceftriaxone Sodium 50 ml @ 100 mls/hr DAILY@09 IV 05/30/24 09:00 06/01/24 09:24 100 MLS/HR Enoxaparin Sodium 70 mg BID SC 05/30/24 22:00 06/01/24 10:06 70 MG Furosemide 40 mg BIDD IV 06/01/24 10:00 Laboratory Results Laboratory Tests 06/01/24 04:11 Chemistry Test 06/01/24 04:11 Calcium Level 9.5 mg/dL (8.7-10.4) Magnesium Level 1.8 mg/dL (1.6-2.6) Urinalysis Test 05/28/24 17:14 Urine Color Yellow (Yellow) Urine Clarity Turbid (Clear) H Urine pH 5.5 (5.0-9.0) Urine Specific [place] 1.024 (1.001-1.035) Urine Protein 1+ (Negative) H Urine Ketones Negative (Negative) Urine Blood Trace /uL (Negative) H Urine Nitrite Negative (Negative) Urine Bilirubin Negative (Negative) Urine Urobilinogen 2 mg/dL (Negative) H Urine Leukocyte Esterase Negative /uL (Negative) Urine RBC 2 /hpf (0 - 4) Urine Microscopic WBC 3 /HPF (0-5) Urine Squamous Epithelial Cells Few /hpf (<5) Urine Bacteria None seen /hpf (None Seen) Urine Hyaline Casts Mod /lpf (0 - 2) Urine Waxy Casts Few /lpf (0) Urine Mucus Few (None Seen) Urine Glucose Normal mg/dL (Normal) Microbiology Microbiology Date/Time Source Procedure Growth Status 05/29/24 10:00 Nose MRSA Screen - Final Complete 05/28/24 17:30 Blood Blood Culture - Preliminary NO GROWTH AFTER 72 HOURS OF INCUBATION. Resulted 05/28/24 17:14 Voided Urine Urine Culture - Final Complete Labs and/or images reviewed: Labs reviewed by me Assessment/Plan Assessment/Plan NEUROLOGY # Acute toxic/metabolic encephalopathy due to severe sepsis due to viral/bacterial Gram-positive Gram-negative pneumonia -[place] coma scale 13 -head CT showed no abnormalities -treat underlying condition CARDIOVASCULAR # NSTEMI, likely type 2 likely secondary to an oxygen supply/demand mismatch likely multifactorial to severe sepsis/atrial fibrillation with rapid ventricular response/CHF exacerbation # unstable atrial fibrillation with rapid ventricular response likely due to severe sepsis due to viral/bacterial pneumonia(Gram-positive Gram-negative) # acute on chronic heart failure reduced ejection fraction exacerbation NYHA III due to AFib RVR due to severe sepsis # history of hypertension # history of coronary artery disease status post multiple PCI # Ruled out PE # history of severe mitral stenosis status post TAVR - Echo completed, 40% ejection fraction with evidence of cor pulmonale - Orderd new LE duplex venous scan, negative for dvt - troponin elevation, downtrending - DVT ultrasound was negative - currently on amiodarone drip, metoprolol for rate and rhythm control - strict I&Os, positive balance today, furosemide was increased to 60 mg b.i.d. IV - therapeutic Lovenox RESPIRATORY # acute hypoxemic respiratory failure due to acute on chronic CHF exacerbation NYHA III/COPD exacerbation in the setting of severe sepsis due to viral/bacterial pneumonia # Sepsis secondary to Viral pneumonia with possible superimposed atypical/Gram- positive and Gram-negative bacterial pneumonia # influenza type a pneumonia # COPD exacerbation due to severe sepsis due to viral/bacterial pneumonia - currently on nasal cannula 2 L - currently on breathing treatment with ipratropium and levalbuterol p.r.n. - currently on oseltamivir p.o. GI /KIDNEY # CHIKA due to cardiorenal syndrome type 1 in the setting of heart failure exacerbation # CHIKA due to the VMN - furosemide 60 mg b.i.d. IV - monitor electrolytes, and kidney function as treating underlying condition ENDO # uncontrolled type 2 diabetes -sliding scale insulin - Accu-Cheks - dextrose prn, if glucose less than 60 ID # severe sepsis likely due to viral/bacterial pneumonia # influenza type a pneumonia - ceftriaxone and doxycycline IV - oseltamivir p.o. - monitor vital signs, with a cell count, lactic acid 1.8 - blood cultures and urine cultures pending METABOLIC # Uncontrolled type 2 diabetes mellitus # non-anion gap metabolic acidosis likely due to acute kidney failure, bun 50 - monitor as treating underlying condition SKIN # chronic limb-threatening ischemia due to peripheral artery disease -vascular surgery consultation - arterial Doppler, completed Continuing current management. We will downgrade the patient to telemetry. This medical document was created using an electronic medical record system with [employer] direct computerized dictation system. Although this document has been carefully reviewed, there may still be some phonetic and typographical errors. These areas are purely typographical due to imperfections of the software programs, and do not reflect any compromise in the patient's medical care. Plan discussed with: Patient, Other (RN) Date of Service: Jun 01, 2024 Billing Provider: BON DOUGLAS MD Common Visit Codes: [id number] INP/OBS CARE(HIGH) BON DOUGLAS MD Jun 01, 2024 17:09
[2024-06-01 20:00] VITALS: PULSE 97
[2024-06-01 21:00] VITALS: BP 142/102; PULSE 75; RESP 19; TEMP 97.3; O2SAT 95
[2024-06-02] VITALS (8 sets, daily range): BP systolic 79–126; BP diastolic 55–81; PULSE 54–163; RESP 16–18; TEMP 97.7–98.4; O2SAT 92–100
--- NOTE | 2024-06-02 09:57 | DVHPN2 ---
Progress Note Date Seen: Jun 02, 2024 Resident Creating Document: ANTIONE SWANSON RESIDENT Medical Necessity Reason Pt with a Central, PICC or Fol: No The following are medically ne: Jenkins Catheter Reason for jenkins catheter: Strict I&O Subjective Review of Systems Patient was seen and examined at bedside, she appears more oriented compared to on admission, currently A and O x2. Patient is noted to be in AFib did RVR up to 160s, currently is at 130s. Provided one dose of metoprolol IV 5 mg IV once, we will restart metoprolol tartrate 50 mg p.o. b.i.d. Objective vital signs Vital Sign Date Time Temp Pulse Resp B/P (MAP) Pulse Ox O2 Delivery O2 Flow Rate FiO2 06/02/24 05:43 95/59 06/02/24 05:00 97.9 54 17 100 97.9 06/01/24 20:00 Nasal Cannula* 2 28 Total Intake and Output 06/01/24 06/01/24 06/02/24 15:00 23:00 07:00 Intake Total 166.66 ml 130 ml 400 ml Output Total 1801 ml Balance 166.66 ml 130 ml -1401 ml medications Current Medications Medications Dose Ordered Sig/Keith Route Start Time Stop Time Status Last Admin Dose Admin Nitroglycerin 0.4 mg Q5MINP PRN SL 05/28/24 22:15 Morphine Sulfate 2 mg Q30M PRN IV 05/28/24 22:15 Doxycycline Hyclate 100 ml @ 50 mls/hr Q12H IV 05/29/24 01:00 06/02/24 00:48 50 MLS/HR Diagnostic Test (Pha) 1 strip ACHS 05/29/24 07:00 06/02/24 05:44 1 STRIP Insulin Human Regular ACHS SC 05/29/24 07:00 06/01/24 12:08 2 UNITS Dextrose 50 ml UD PRN IV 05/29/24 03:00 Oseltamivir Phosphate 30 mg Q12HR PO 05/29/24 22:00 06/02/24 22:01 06/01/24 21:08 30 MG Metoprolol Tartrate 50 mg BID PO 05/29/24 10:10 Hold 05/31/24 21:42 50 MG Atorvastatin Calcium 20 mg HS PO 05/29/24 22:00 06/01/24 21:08 20 MG Ceftriaxone Sodium 50 ml @ 100 mls/hr DAILY@09 IV 05/30/24 09:00 06/01/24 09:24 100 MLS/HR Enoxaparin Sodium 70 mg BID SC 05/30/24 22:00 06/01/24 21:09 70 MG Examination General: Awake, alert, comfortable appearing, in no acute distress. HEENT: Head is normocephalic and atraumatic. Pupils are equal, round, and reactive to light. Extraocular muscles are intact. No nasal discharge. No facial trauma. Intraoral exam shows moist mucous membranes with no tonsillar enlargement or exudate. Neck: Supple with no cervical lymphadenopathy No meningismus. No goiter. Heart: Irregularly irregular Lungs: Bilateral [id number] crackles Abdomen: No external sign of injury. Bowel sounds are present. Abdomen is soft, nontender. No rebound, no guarding, no rigidity. There are no palpable masses. There is no flank pain on exam. Extremities: Strong peripheral pulses. There is no clubbing, no cyanosis, and no edema. Skin: Lower extremity hyperpigmentation laboratory and microbiology Laboratory Tests 06/01/24 04:11 Test 06/01/24 04:11 Range/Units Serum Glucose 119 H 74-106 mg/dL Microbiology Date/Time Source Procedure Growth Status 05/29/24 10:00 Nose MRSA Screen - Final Complete 05/28/24 17:30 Blood Blood Culture - Preliminary NO GROWTH AFTER 72 HOURS OF INCUBATION. Resulted 05/28/24 17:14 Voided Urine Urine Culture - Final Complete Labs and/or images reviewed: Labs reviewed by me, Image(s) reviewed by me Problem List/Assessment/Plan Problem List/Assessment/Plan AFib with rapid ventricular response likely related to underlying infection and fluid overload NSTEMI likely type 2 due to underlying infection Acute on chronic diastolic CHF CAD status post PCIs x9 stents Severe mitral stenosis Status post TAVR Mild tricuspid regurgitation Mild aortic insufficiency Peripheral arterial disease Acute on chronic hypoxic respiratory failure Sepsis due to Pneumonia, viral versus atypical, versus Gram-positive versus Gram-negative bacteria Influenza type a infection Metabolic encephalopathy due to above CHIKA , likely prerenal Transaminitis Type 2 diabetes Plan/Recommendation Continue beta-miguel for rate control, up titrate as tolerated. Metoprolol 5 mg IV once, continue metoprolol 50 mg p.o b.i.d. Restarted amiodarone drip with bolus Continue treating underlying infection, antivirals, broad-spectrum antibiotics Hold Lasix for now, ordered CMP, magnesium [id number]: 6 points HAS-BLED: 2 points Continue therapeutic Lovenox Discontinue DAPT Echocardiogram shows an ejection fraction of 40%, severe LVH, flattened IV septum, RV enlarged, RV failure, biatrial enlargement, severe MS, moderate to severe tricuspid regurgitation Patient had a recent left heart catheterization in 2022, which did not show any significant occlusion. Case was discussed with Dr. Pritchett Plan discussed with: Patient, Other My Orders My Orders Orders - ANTIONE SWANSON Procedure Category Date Status Time Comprehensive LAB 06/02/24 Logged Metabolic Panel 09:27 Magnesium LAB 06/02/24 Logged 09:27 Chest Portable XY 06/02/24 Logged 09:27 ANTIONE SWANSON RESIDENT Jun 02, 2024 09:57
[2024-06-02] MEDS: METOPROLOL TARTRATE 1MG/1ML-5ML VIAL IV ONE (10:01)
--- NOTE | 2024-06-02 10:30 | DVHPN2 ---
Subjective The patient is seen and examined at bedside. The patient is better today. No complains. Remain very weak. Reviewed: Care Plan, H&P, Labs, Medications, Previous Orders, Radiology Changes from previous H/P or p: No Changes Cardiovascular: Chest Pain, Palpitations, Orthopnea, Paroxysmal Noc. Dyspnea, E tabitha, Lt Headedness, Other Respiratory: Cough, Dry, Shortness of breath, SOB with excertion, Wheezing, H emoptysis, Pleuritic Pain, Sputum, Other Objective Vitals Vital Signs Date Time Temp Pulse Resp B/P (MAP) Pulse Ox O2 Delivery O2 Flow Rate FiO2 06/02/24 10:01 150 119/70 06/02/24 09:00 98.4 16 95 98.4 06/01/24 20:00 Nasal Cannula* 2 28 Intake/Output Intake and Output 06/02/24 07:00 Intake Total 696.66 ml Output Total 1801 ml Balance -1104.34 ml Intake Oral 380 ml IV Total 316.66 ml Output Urine Total 1800 ml Stool Total 1 ml General Appearance: Alert HEENT: Atraumatic, PERRLA, EOMI Neck: Supple Lungs: Clear to auscultation, Normal air movement Cardiovascular: Regular rate, Normal S1, Normal S2, No murmurs, Gallops, Rubs Abdomen: Normal bowel sounds, Soft, No tenderness Psych/Mental Status: Other (Confused, sleepy) Medications Current Medications Medications Dose Ordered Sig/Keith Route Start Time Stop Time Status Last Admin Dose Admin Nitroglycerin 0.4 mg Q5MINP PRN SL 05/28/24 22:15 Morphine Sulfate 2 mg Q30M PRN IV 05/28/24 22:15 Doxycycline Hyclate 100 ml @ 50 mls/hr Q12H IV 05/29/24 01:00 06/02/24 00:48 50 MLS/HR Diagnostic Test (Pha) 1 strip ACHS 05/29/24 07:00 06/02/24 05:44 1 STRIP Insulin Human Regular ACHS SC 05/29/24 07:00 06/01/24 12:08 2 UNITS Dextrose 50 ml UD PRN IV 05/29/24 03:00 Oseltamivir Phosphate 30 mg Q12HR PO 05/29/24 22:00 06/02/24 22:01 06/02/24 10:01 30 MG Metoprolol Tartrate 50 mg BID PO 05/29/24 10:10 Hold 05/31/24 21:42 50 MG Atorvastatin Calcium 20 mg HS PO 05/29/24 22:00 06/01/24 21:08 20 MG Ceftriaxone Sodium 50 ml @ 100 mls/hr DAILY@09 IV 05/30/24 09:00 06/02/24 10:02 100 MLS/HR Enoxaparin Sodium 70 mg BID SC 05/30/24 22:00 06/02/24 10:02 70 MG Laboratory Results Laboratory Tests 06/01/24 04:11 Urinalysis Test 05/28/24 17:14 Urine Color Yellow (Yellow) Urine Clarity Turbid (Clear) H Urine pH 5.5 (5.0-9.0) Urine Specific [place] 1.024 (1.001-1.035) Urine Protein 1+ (Negative) H Urine Ketones Negative (Negative) Urine Blood Trace /uL (Negative) H Urine Nitrite Negative (Negative) Urine Bilirubin Negative (Negative) Urine Urobilinogen 2 mg/dL (Negative) H Urine Leukocyte Esterase Negative /uL (Negative) Urine RBC 2 /hpf (0 - 4) Urine Microscopic WBC 3 /HPF (0-5) Urine Squamous Epithelial Cells Few /hpf (<5) Urine Bacteria None seen /hpf (None Seen) Urine Hyaline Casts Mod /lpf (0 - 2) Urine Waxy Casts Few /lpf (0) Urine Mucus Few (None Seen) Urine Glucose Normal mg/dL (Normal) Microbiology Microbiology Date/Time Source Procedure Growth Status 05/29/24 10:00 Nose MRSA Screen - Final Complete 05/28/24 17:30 Blood Blood Culture - Preliminary NO GROWTH AFTER 72 HOURS OF INCUBATION. Resulted 05/28/24 17:14 Voided Urine Urine Culture - Final Complete Labs and/or images reviewed: Labs reviewed by me Assessment/Plan Assessment/Plan NEUROLOGY # Acute toxic/metabolic encephalopathy due to severe sepsis due to viral/bacterial Gram-positive Gram-negative pneumonia -[place] coma scale 13 -head CT showed no abnormalities -treat underlying condition CARDIOVASCULAR # NSTEMI, likely type 2 likely secondary to an oxygen supply/demand mismatch likely multifactorial to severe sepsis/atrial fibrillation with rapid ventricular response/CHF exacerbation # unstable atrial fibrillation with rapid ventricular response likely due to severe sepsis due to viral/bacterial pneumonia(Gram-positive Gram-negative) # acute on chronic heart failure reduced ejection fraction exacerbation NYHA III due to AFib RVR due to severe sepsis # history of hypertension # history of coronary artery disease status post multiple PCI # Ruled out PE # history of severe mitral stenosis status post TAVR - Echo completed, 40% ejection fraction with evidence of cor pulmonale - Orderd new LE duplex venous scan, negative for dvt - troponin elevation, downtrending - DVT ultrasound was negative - currently on amiodarone drip, metoprolol for rate and rhythm control - strict I&Os, positive balance today, furosemide was increased to 60 mg b.i.d. IV - therapeutic Lovenox RESPIRATORY # acute hypoxemic respiratory failure due to acute on chronic CHF exacerbation NYHA III/COPD exacerbation in the setting of severe sepsis due to viral/bacterial pneumonia # Sepsis secondary to Viral pneumonia with possible superimposed atypical/Gram- positive and Gram-negative bacterial pneumonia # influenza type a pneumonia # COPD exacerbation due to severe sepsis due to viral/bacterial pneumonia - currently on nasal cannula 2 L - currently on breathing treatment with ipratropium and levalbuterol p.r.n. - currently on oseltamivir p.o. GI /KIDNEY # CHIKA due to cardiorenal syndrome type 1 in the setting of heart failure exacerbation # CHIKA due to the VMN - furosemide 60 mg b.i.d. IV - monitor electrolytes, and kidney function as treating underlying condition ENDO # uncontrolled type 2 diabetes -sliding scale insulin - Accu-Cheks - dextrose prn, if glucose less than 60 ID # severe sepsis likely due to viral/bacterial pneumonia # influenza type a pneumonia - ceftriaxone and doxycycline IV - oseltamivir p.o. - monitor vital signs, with a cell count, lactic acid 1.8 - blood cultures and urine cultures pending METABOLIC # Uncontrolled type 2 diabetes mellitus # non-anion gap metabolic acidosis likely due to acute kidney failure, bun 50 - monitor as treating underlying condition SKIN # chronic limb-threatening ischemia due to peripheral artery disease -vascular surgery consultation - arterial Doppler, completed Continuing current management. Will consult PT to get the patient out of bed and ambulate. This medical document was created using an electronic medical record system with [employer] computerized dictation system. Although this document has been carefully reviewed, there may still be some phonetic and typographical errors. These areas are purely typographical due to imperfections of the software programs, and do not reflect any compromise in the patient's medical care. Plan discussed with: Patient Date of Service: Jun 02, 2024 Billing Provider: BON DOUGLAS MD Common Visit Codes: [id number] INP/OBS CARE(HIGH) BON DOUGLAS MD Jun 02, 2024 10:30
[2024-06-02] MEDS: AMIODARONE BOLUS KIT 100 ML IV ONE (11:04)
[2024-06-02] MEDS: MAGNESIUM SULFATE 1GM/100ML 100 ML IV ONE (11:20)
[2024-06-02 11:44] LABS: Alanine Aminotransferase 36 U/L (7-40); Albumin 3.5 g/dL (3.2-4.8); Alkaline Phosphatase 77 U/L (46-116); Anion Gap 8 (5-15); Aspartate Aminotransferase 23 U/L (13-40); BUN/Creatinine Ratio 24.4 (10.0-20.0); Blood Urea Nitrogen 19 mg/dL (9-23); Calcium 9.6 mg/dL (8.7-10.4); Magnesium 1.9 mg/dL (1.6-2.6); Sodium 138 mmol/L (136-145)
[2024-06-02 11:45] LABS: Carbon Dioxide 39 mmol/L (20-31); Chloride 91 mmol/L (98-107); Glucose 128 mg/dL (74-106); Potassium 3.3 mmol/L (3.5-5.1); Total Protein 5.6 g/dL (5.7-8.2)
--- NOTE | 2024-06-02 12:55 | ECG ---
[facility] Test Date: 2024-06-01 Test Time: 11:20:17 Pat Name: DUANE ROSEN Department: ER Room: 0202T A Gender: F Supervisor Soakers: MAYELA : 1940 Requested By: DARELL COREY Order Number: [id number] Reading MD: Christopher Castrejon Measurements Intervals [place] Rate: 66 P: 36 [place]: 163 QRS: 96 QRSD: 90 T: -67 QT: 398 QTc: 417 Interpretive Statements Sinus rhythm Probable anterior infarct, age indeterminate Baseline wander in lead(s) I,II,aVR,V5 Electronically Signed On 06-04-2024 21:49:08 PST by Christopher Castrejon Please click the below link to view image of tracing.
--- NOTE | 2024-06-02 13:08 | DVH ---
EXAM: XY CHEST PORTABLE Indication: sob Technique: Single frontal view of the chest was obtained Comparison: XY CHEST PORTABLE on DOS: 05/29/24, XY CHEST PORTABLE on DOS: 05/28/24, XY CHEST PORTABLE o n DOS: 01/23/24, XY CHEST PORTABLE on DOS: 10/04/23, XY CHEST PORTABLE on DOS: 03/27/23 FINDINGS: Lines and Tubes: None Lungs: Mild pulmonary vascular congestion. Pleura: No effusion. No pneumothorax. Cardiomediastinal contours: Prominent cardiac size. Atherosclerotic vascular calcifications of the th oracic aorta are noted. Bones: No acute osseous abnormality. IMPRESSION: Mild pulmonary vascular congestion.
[2024-06-02] MEDS: AMIODARONE 360mg/200mL PREMIX 200 ML IV ONE (14:15)
[2024-06-02] MEDS: POTASSIUM CHL 20 Meq TABLET PO ONE (16:11)
[2024-06-02] MEDS ORDERED: AMIODARONE 360mg/200mL PREMIX 200 ML IV SCH (16:45)
[2024-06-02] MEDS: AMIODARONE 360mg/200mL PREMIX 200 ML IV SCH (19:55)
[2024-06-02] MEDS: METOPROLOL TARTRATE 50 MG TAB PO SCH (22:23)
[2024-06-03] VITALS (8 sets, daily range): BP systolic 126–158; BP diastolic 63–71; PULSE 57–101; RESP 17–20; TEMP 97.3–98.7; O2SAT 90–100
[2024-06-03 07:57] LABS: Anion Gap 7 (5-15); Sodium 137 mmol/L (136-145)
[2024-06-03 07:58] LABS: Calcium 9.6 mg/dL (8.7-10.4)
[2024-06-03 08:03] LABS: BUN/Creatinine Ratio 22.7 (10.0-20.0); Blood Urea Nitrogen 17 mg/dL (9-23)
[2024-06-03 08:04] LABS: Magnesium 2.2 mg/dL (1.6-2.6)
[2024-06-03 08:06] LABS: Carbon Dioxide 36 mmol/L (20-31); Chloride 94 mmol/L (98-107); Glucose 126 mg/dL (74-106)
--- NOTE | 2024-06-03 11:44 | DVHPN2 ---
Subjective The patient is seen and examined at bedside. The patient is better today. No complains. Remain very weak. Reviewed: Care Plan, H&P, Labs, Medications, Previous Orders, Radiology Changes from previous H/P or p: No Changes Cardiovascular: Chest Pain, Palpitations, Orthopnea, Paroxysmal Noc. Dyspnea, E tabitha, Lt Headedness, Other Respiratory: Cough, Dry, Shortness of breath, SOB with excertion, Wheezing, H emoptysis, Pleuritic Pain, Sputum, Other Objective Vitals Vital Signs Date Time Temp Pulse Resp B/P (MAP) Pulse Ox O2 Delivery O2 Flow Rate FiO2 06/03/24 09:21 63 158/71 06/03/24 09:00 98.1 18 90 98.1 06/02/24 20:00 Nasal Cannula* 2 28 Intake/Output Intake and Output 06/03/24 07:00 Intake Total 1050 ml Output Total 801 ml Balance 249 ml Intake Oral 700 ml IV Total 350 ml Output Urine Total 800 ml Stool Total 1 ml # Bowel Movements 1 General Appearance: Alert HEENT: Atraumatic, PERRLA, EOMI Neck: Supple Lungs: Clear to auscultation, Normal air movement Cardiovascular: Regular rate, Normal S1, Normal S2, No murmurs, Gallops, Rubs Abdomen: Normal bowel sounds, Soft, No tenderness Psych/Mental Status: Other (Confused, sleepy) Medications Current Medications Medications Dose Ordered Sig/Keith Route Start Time Stop Time Status Last Admin Dose Admin Nitroglycerin 0.4 mg Q5MINP PRN SL 05/28/24 22:15 Morphine Sulfate 2 mg Q30M PRN IV 05/28/24 22:15 Doxycycline Hyclate 100 ml @ 50 mls/hr Q12H IV 05/29/24 01:00 06/03/24 01:47 50 MLS/HR Diagnostic Test (Pha) 1 strip ACHS 05/29/24 07:00 06/03/24 06:25 1 STRIP Insulin Human Regular ACHS SC 05/29/24 07:00 06/02/24 17:53 4 UNITS Dextrose 50 ml UD PRN IV 05/29/24 03:00 Atorvastatin Calcium 20 mg HS PO 05/29/24 22:00 06/02/24 22:23 20 MG Ceftriaxone Sodium 50 ml @ 100 mls/hr DAILY@09 IV 05/30/24 09:00 06/03/24 09:21 100 MLS/HR Enoxaparin Sodium 70 mg BID SC 05/30/24 22:00 06/03/24 09:21 70 MG Metoprolol Tartrate 50 mg BID PO 06/02/24 22:00 06/03/24 09:21 50 MG Amiodarone HCl 200 mg Q12HR PO 06/03/24 22:00 UNV Laboratory Results Laboratory Tests 06/01/24 04:11 06/03/24 07:05 Chemistry Test 06/03/24 07:05 Calcium Level 9.6 mg/dL (8.7-10.4) Magnesium Level 2.2 mg/dL (1.6-2.6) Urinalysis Test 05/28/24 17:14 Urine Color Yellow (Yellow) Urine Clarity Turbid (Clear) H Urine pH 5.5 (5.0-9.0) Urine Specific [place] 1.024 (1.001-1.035) Urine Protein 1+ (Negative) H Urine Ketones Negative (Negative) Urine Blood Trace /uL (Negative) H Urine Nitrite Negative (Negative) Urine Bilirubin Negative (Negative) Urine Urobilinogen 2 mg/dL (Negative) H Urine Leukocyte Esterase Negative /uL (Negative) Urine RBC 2 /hpf (0 - 4) Urine Microscopic WBC 3 /HPF (0-5) Urine Squamous Epithelial Cells Few /hpf (<5) Urine Bacteria None seen /hpf (None Seen) Urine Hyaline Casts Mod /lpf (0 - 2) Urine Waxy Casts Few /lpf (0) Urine Mucus Few (None Seen) Urine Glucose Normal mg/dL (Normal) Microbiology Microbiology Date/Time Source Procedure Growth Status 05/29/24 10:00 Nose MRSA Screen - Final Complete 05/28/24 17:30 Blood Blood Culture - Final NO GROWTH AFTER 5 DAYS OF INCUBATION. Complete 05/28/24 17:14 Voided Urine Urine Culture - Final Complete Labs and/or images reviewed: Labs reviewed by me Assessment/Plan Assessment/Plan NEUROLOGY # Acute toxic/metabolic encephalopathy due to severe sepsis due to viral/bacterial Gram-positive Gram-negative pneumonia -[place] coma scale 13 -head CT showed no abnormalities -treat underlying condition CARDIOVASCULAR # NSTEMI, likely type 2 likely secondary to an oxygen supply/demand mismatch likely multifactorial to severe sepsis/atrial fibrillation with rapid ventricular response/CHF exacerbation # unstable atrial fibrillation with rapid ventricular response likely due to severe sepsis due to viral/bacterial pneumonia(Gram-positive Gram-negative) # acute on chronic heart failure reduced ejection fraction exacerbation NYHA III due to AFib RVR due to severe sepsis # history of hypertension # history of coronary artery disease status post multiple PCI # Ruled out PE # history of severe mitral stenosis status post TAVR - Echo completed, 40% ejection fraction with evidence of cor pulmonale - Orderd new LE duplex venous scan, negative for dvt - troponin elevation, downtrending - DVT ultrasound was negative - currently on amiodarone drip, metoprolol for rate and rhythm control - strict I&Os, positive balance today, furosemide was increased to 60 mg b.i.d. IV - therapeutic Lovenox RESPIRATORY # acute hypoxemic respiratory failure due to acute on chronic CHF exacerbation NYHA III/COPD exacerbation in the setting of severe sepsis due to viral/bacterial pneumonia # Sepsis secondary to Viral pneumonia with possible superimposed atypical/Gram- positive and Gram-negative bacterial pneumonia # influenza type a pneumonia # COPD exacerbation due to severe sepsis due to viral/bacterial pneumonia - currently on nasal cannula 2 L - currently on breathing treatment with ipratropium and levalbuterol p.r.n. - currently on oseltamivir p.o. GI /KIDNEY # CHIKA due to cardiorenal syndrome type 1 in the setting of heart failure exacerbation # CHIKA due to the VMN - furosemide 60 mg b.i.d. IV - monitor electrolytes, and kidney function as treating underlying condition ENDO # uncontrolled type 2 diabetes -sliding scale insulin - Accu-Cheks - dextrose prn, if glucose less than 60 ID # severe sepsis likely due to viral/bacterial pneumonia # influenza type a pneumonia - ceftriaxone and doxycycline IV - oseltamivir p.o. - monitor vital signs, with a cell count, lactic acid 1.8 - blood cultures and urine cultures pending METABOLIC # Uncontrolled type 2 diabetes mellitus # non-anion gap metabolic acidosis likely due to acute kidney failure, bun 50 - monitor as treating underlying condition SKIN # chronic limb-threatening ischemia due to peripheral artery disease -vascular surgery consultation - arterial Doppler, completed Continuing current management. Will consult PT to get the patient out of bed and ambulate. Discharge planning. This medical document was created using an electronic medical record system with [email or web address] direct computerized dictation system. Although this document has been carefully reviewed, there may still be some phonetic and typographical errors. These areas are purely typographical due to imperfections of the software programs, and do not reflect any compromise in the patient's medical care. Plan discussed with: Patient My Orders Orders - BON DOUGLAS MD Procedure Category Date Status Time Apply Barrier Cream LIDIA 06/02/24 In Process 17:00 Specialty Bed Mattress ORDERS 06/02/24 Transmitted 17:00 * Dietary Consult CONS 06/02/24 Transmitted 17:53 Date of Service: Jun 03, 2024 Billing Provider: BON DOUGLAS MD Common Visit Codes: [id number] INP/OBS CARE(HIGH) BON DOUGLAS MD Jun 03, 2024 11:44
--- NOTE | 2024-06-03 14:05 | DVHPN2 ---
Progress Note Date Seen: Jun 03, 2024 Resident Creating Document: ANTIONE SWANSON RESIDENT Medical Necessity Reason Pt with a Central, PICC or Fol: No The following are medically ne: Jenkins Catheter Reason for jenkins catheter: Strict I&O Subjective Review of Systems Patient was seen and examined at bedside, she states feeling better, she is alert and oriented x3, denies any significant chest pain or shortness for breath. Vital signs appear unremarkable, heart rate is back to sinus rhythm in the 60s. Objective vital signs Vital Sign Date Time Temp Pulse Resp B/P (MAP) Pulse Ox O2 Delivery O2 Flow Rate FiO2 06/03/24 12:55 98.3 63 20 130/67 (88) 93 98.3 06/03/24 08:00 Nasal Cannula* 2 28 Total Intake and Output 06/02/24 06/02/24 06/03/24 15:00 23:00 07:00 Intake Total 250 ml 300 ml 500 ml Output Total 501 ml 300 ml Balance 250 ml -201 ml 200 ml medications Current Medications Medications Dose Ordered Sig/Keith Route Start Time Stop Time Status Last Admin Dose Admin Nitroglycerin 0.4 mg Q5MINP PRN SL 05/28/24 22:15 Morphine Sulfate 2 mg Q30M PRN IV 05/28/24 22:15 Doxycycline Hyclate 100 ml @ 50 mls/hr Q12H IV 05/29/24 01:00 06/03/24 01:47 50 MLS/HR Diagnostic Test (Pha) 1 strip ACHS 05/29/24 07:00 06/03/24 11:40 1 STRIP Insulin Human Regular ACHS SC 05/29/24 07:00 06/03/24 11:40 2 UNITS Dextrose 50 ml UD PRN IV 05/29/24 03:00 Atorvastatin Calcium 20 mg HS PO 05/29/24 22:00 06/02/24 22:23 20 MG Ceftriaxone Sodium 50 ml @ 100 mls/hr DAILY@09 IV 05/30/24 09:00 06/03/24 09:21 100 MLS/HR Enoxaparin Sodium 70 mg BID SC 05/30/24 22:00 06/03/24 09:21 70 MG Metoprolol Tartrate 50 mg BID PO 06/02/24 22:00 06/03/24 09:21 50 MG Amiodarone HCl 200 mg Q12HR PO 06/03/24 22:00 Examination General: Awake, alert, comfortable appearing, in no acute distress. HEENT: Head is normocephalic and atraumatic. Pupils are equal, round, and reactive to light. Extraocular muscles are intact. No nasal discharge. No facial trauma. Intraoral exam shows moist mucous membranes with no tonsillar enlargement or exudate. Neck: Supple with no cervical lymphadenopathy No meningismus. No goiter. Heart: Regular rate without murmur, rub, or gallop. Lungs: [id number] bilateral diffuse crackles Abdomen: No external sign of injury. Bowel sounds are present. Abdomen is soft, nontender. No rebound, no guarding, no rigidity. There are no palpable masses. There is no flank pain on exam. Extremities: Strong peripheral pulses. Mild nonpitting peripheral edema Skin: No rash. Neurologic: Cranial nerves II-XII intact without motor, sensory, or cerebellar deficit, no asterixis. laboratory and microbiology Laboratory Tests 06/03/24 07:05 06/01/24 04:11 Test 06/03/24 07:05 Range/Units Serum Glucose 126 H 74-106 mg/dL Microbiology Date/Time Source Procedure Growth Status 05/29/24 10:00 Nose MRSA Screen - Final Complete 05/28/24 17:30 Blood Blood Culture - Final NO GROWTH AFTER 5 DAYS OF INCUBATION. Complete 05/28/24 17:14 Voided Urine Urine Culture - Final Complete Labs and/or images reviewed: Labs reviewed by me, Image(s) reviewed by me Problem List/Assessment/Plan Problem List/Assessment/Plan AFib with rapid ventricular response likely related to underlying infection and fluid overload, currently back to NSR NSTEMI likely type 2 due to underlying infection Acute on chronic diastolic CHF CAD status post PCIs x9 stents Severe mitral stenosis Status post TAVR Mild tricuspid regurgitation Mild aortic insufficiency Peripheral arterial disease Acute on chronic hypoxic respiratory failure Sepsis due to Pneumonia, viral versus atypical, versus Gram-positive versus Gram-negative bacteria Influenza type a infection Metabolic encephalopathy due to above CHIKA , likely prerenal Transaminitis Type 2 diabetes Plan/Recommendation Continue beta-miguel for rate control, up titrate as tolerated. continue metoprolol 50 mg p.o b.i.d. DC amiodarone drip, continue amiodarone 200 mg p.o. b.i.d., may titrate down to 200 mg p.o. q.d. Continue treating underlying infection, broad-spectrum antibiotics Continue gentle diuresis [id number]: 6 points HAS-BLED: 2 points Continue therapeutic Lovenox, may transition to Eliquis 2.5 mg p.o. b.i.d. on discharge Echocardiogram shows an ejection fraction of 40%, severe LVH, flattened IV septum, RV enlarged, RV failure, biatrial enlargement, severe MS, moderate to severe tricuspid regurgitation Patient had a recent left heart catheterization in 2022, which did not show any significant occlusion. Thank you for allowing us to participate in the care of this patient, we will sign off. Case was discussed with Dr. Pritchett Plan discussed with: Patient My Orders My Orders Orders - ANTIONE SWANSON RESIDENT Procedure Category Date Status Time Amiodarone Tablet PHA 06/03/24 In Process (Cordarone Tablet) 22:00 Dietary Evaluation Review Comments: Follow a 2 gNa CCHO-60 low fat low chol cardiac diet. encourage and monitor PO intake to meet at least 75% of her needs. May consider Marko BID for wound healing. Expected Outcomes/Goals: improved Diabetic control, improved wouund healing, maintain body weight. ANTIONE SWANSON RESIDENT Jun 03, 2024 14:05
[2024-06-03] MEDS: AMIODARONE HCL 200 MG TAB PO SCH (21:39)
[2024-06-04] VITALS (8 sets, daily range): BP systolic 115–166; BP diastolic 69–84; PULSE 56–68; RESP 16–18; TEMP 97.6–98.5; O2SAT 91–98
[2024-06-04] MEDS: FUROSEMIDE 40 MG/4 ML VIAL IV SCH (09:48)
[2024-06-04 12:25] LABS: Basophils # (auto) 0 10 ^3/uL (0-0.2); Basophils % (auto) 0.2 % (0.0-2.0); Eosinophils # (auto) 0 10 ^3/uL (0-0.8); Eosinophils % (auto) 0.2 % (0.0-7.0); Hemoglobin 17.4 g/dL (12.2-16.2); Lymphocytes # (auto) 0.5 10 ^3/uL (0.4-5.4); Lymphocytes % (auto) 6.4 % (10.0-50.0); Mean Corpuscular Hemoglobin 30.6 pg (28.0-32.0); Mean Corpuscular Hgb Conc. 32.8 g/dL (32.0-36.0); Mean Corpuscular Volume 93.3 fL (80.0-100.0); Monocytes # (auto) 0.9 10 ^3/uL (0-1.3); Neutrophils # (auto) 5.9 10 ^3/uL (1.6-8.6); Neutrophils % (auto) 81.2 % (37.0-80.0); Nucleated Red Blood Cells % 0.1 %; Platelet Count (auto) 221 10^3/uL (140-450); Red Blood Cells 5.68 10^6/uL (4.0-5.20); Red Cell Distribution Width 14.9 % (11.8-14.3); White Blood Cell 7.2 10^3/uL (4.4-10.8)
[2024-06-04 12:39] LABS: Anion Gap 6 (5-15); Sodium 137 mmol/L (136-145)
[2024-06-04 12:40] LABS: Calcium 9.5 mg/dL (8.7-10.4)
[2024-06-04 12:45] LABS: Blood Urea Nitrogen 14 mg/dL (9-23)
[2024-06-04 12:55] LABS: Chloride 91 mmol/L (98-107); Glucose 167 mg/dL (74-106); Potassium 3.2 mmol/L (3.5-5.1)
[2024-06-04 12:56] LABS: Carbon Dioxide 40 mmol/L (20-31)
--- NOTE | 2024-06-04 13:30 | DVHPN2 ---
Reviewed: Care Plan, H&P, Labs, Medications, Previous Orders, Radiology Changes from previous H/P or p: No Changes General: Per HPI Cardiovascular: Chest Pain, Palpitations, Orthopnea, Paroxysmal Noc. Dyspnea, E tabitha, Lt Headedness, Other Respiratory: Cough, Dry, Shortness of breath, SOB with excertion, Wheezing, H emoptysis, Pleuritic Pain, Sputum, Other Objective Vitals Vital Signs Date Time Temp Pulse Resp B/P (MAP) Pulse Ox O2 Delivery O2 Flow Rate FiO2 06/04/24 13:05 98.5 57 16 150/69 (96) 93 98.5 06/03/24 20:00 Nasal Cannula* 2 28 Intake/Output Intake and Output 06/04/24 07:00 Intake Total 900 ml Output Total 50 ml Balance 850 ml Intake Oral 800 ml IV Total 100 ml Output Urine Total 50 ml # Bowel Movements 7 General Appearance: Alert HEENT: Atraumatic, PERRLA, EOMI Neck: Supple Lungs: Clear to auscultation, Normal air movement Cardiovascular: Regular rate, Normal S1, Normal S2, No murmurs, Gallops, Rubs Abdomen: Normal bowel sounds, Soft, No tenderness Psych/Mental Status: Other (Confused, sleepy) Medications Current Medications Medications Dose Ordered Sig/Keith Route Start Time Stop Time Status Last Admin Dose Admin Nitroglycerin 0.4 mg Q5MINP PRN SL 05/28/24 22:15 Morphine Sulfate 2 mg Q30M PRN IV 05/28/24 22:15 Doxycycline Hyclate 100 ml @ 50 mls/hr Q12H IV 05/29/24 01:00 06/04/24 01:48 50 MLS/HR Diagnostic Test (Pha) 1 strip ACHS 05/29/24 07:00 06/04/24 11:30 1 STRIP Insulin Human Regular ACHS SC 05/29/24 07:00 06/04/24 11:30 4 UNITS Dextrose 50 ml UD PRN IV 05/29/24 03:00 Atorvastatin Calcium 20 mg HS PO 05/29/24 22:00 06/03/24 21:39 20 MG Ceftriaxone Sodium 50 ml @ 100 mls/hr DAILY@09 IV 05/30/24 09:00 06/04/24 09:33 100 MLS/HR Enoxaparin Sodium 70 mg BID SC 05/30/24 22:00 06/04/24 09:36 70 MG Metoprolol Tartrate 50 mg BID PO 06/02/24 22:00 06/04/24 09:43 50 MG Amiodarone HCl 200 mg Q12HR PO 06/03/24 22:00 06/04/24 09:36 200 MG Furosemide 40 mg DAILY IV 06/04/24 10:00 06/04/24 09:48 40 MG Laboratory Results Laboratory Tests 06/04/24 11:55 Chemistry Test 06/04/24 11:55 Calcium Level 9.5 mg/dL (8.7-10.4) Urinalysis Test 05/28/24 17:14 Urine Color Yellow (Yellow) Urine Clarity Turbid (Clear) H Urine pH 5.5 (5.0-9.0) Urine Specific [place] 1.024 (1.001-1.035) Urine Protein 1+ (Negative) H Urine Ketones Negative (Negative) Urine Blood Trace /uL (Negative) H Urine Nitrite Negative (Negative) Urine Bilirubin Negative (Negative) Urine Urobilinogen 2 mg/dL (Negative) H Urine Leukocyte Esterase Negative /uL (Negative) Urine RBC 2 /hpf (0 - 4) Urine Microscopic WBC 3 /HPF (0-5) Urine Squamous Epithelial Cells Few /hpf (<5) Urine Bacteria None seen /hpf (None Seen) Urine Hyaline Casts Mod /lpf (0 - 2) Urine Waxy Casts Few /lpf (0) Urine Mucus Few (None Seen) Urine Glucose Normal mg/dL (Normal) Microbiology Microbiology Date/Time Source Procedure Growth Status 05/29/24 10:00 Nose MRSA Screen - Final Complete 05/28/24 17:30 Blood Blood Culture - Final NO GROWTH AFTER 5 DAYS OF INCUBATION. Complete 05/28/24 17:14 Voided Urine Urine Culture - Final Complete Assessment/Plan Assessment/Plan # Acute toxic/metabolic encephalopathy due to severe sepsis due to viral/bacterial Gram-positive Gram-negative pneumonia # NSTEMI, likely type 2 likely secondary to an oxygen supply/demand mismatch likely multifactorial to severe sepsis/atrial fibrillation with rapid ventricular response/CHF exacerbation # unstable atrial fibrillation with rapid ventricular response likely due to severe sepsis due to viral/bacterial pneumonia(Gram-positive Gram-negative) # acute on chronic heart failure reduced ejection fraction exacerbation NYHA III due to AFib RVR due to severe sepsis # history of hypertension # history of coronary artery disease status post multiple PCI # Ruled out PE # history of severe mitral stenosis status post TAVR # acute hypoxemic respiratory failure due to acute on chronic CHF exacerbation NYHA III/COPD exacerbation in the setting of severe sepsis due to viral/bacterial pneumonia # Sepsis secondary to Viral pneumonia with possible superimposed atypical/Gram- positive and Gram-negative bacterial pneumonia # influenza type a pneumonia # COPD exacerbation due to severe sepsis due to viral/bacterial pneumonia # CHIKA due to cardiorenal syndrome type 1 in the setting of heart failure exacerbation # CHIKA due to the VMN # uncontrolled type 2 diabetes # severe sepsis likely due to viral/bacterial pneumonia # influenza type a pneumonia # Uncontrolled type 2 diabetes mellitus # non-anion gap metabolic acidosis likely due to acute kidney failure, bun 50 # chronic limb-threatening ischemia due to peripheral artery disease #respiratory acidosis with metabolic alkalosis : pt appears to be confused awaiting for PT to evaluate Plan discussed with: Patient Date of Service: Jun 04, 2024 Billing Provider: SUKHJINDER AGUIRRE DO Common Visit Codes: [id number] INP/OBS CARE(HIGH) SUKHJINDER AGUIRRE DO Jun 04, 2024 13:29
[2024-06-04] MEDS: acetaZOLAMIDE 250 MG TAB PO SCH (21:32)
[2024-06-05] VITALS (8 sets, daily range): BP systolic 95–159; BP diastolic 55–98; PULSE 53–70; RESP 16–20; TEMP 97.1–98.4; O2SAT 94–99
[2024-06-05 00:44] LABS: Anion Gap 7 (5-15); Calcium 9.7 mg/dL (8.7-10.4)
[2024-06-05 00:49] LABS: BUN/Creatinine Ratio 18.5 (10.0-20.0); Blood Urea Nitrogen 12 mg/dL (9-23)
[2024-06-05 00:51] LABS: Carbon Dioxide 36 mmol/L (20-31); Chloride 94 mmol/L (98-107); Glucose 116 mg/dL (74-106); Potassium 3.3 mmol/L (3.5-5.1); Sodium 137 mmol/L (136-145)
[2024-06-06] VITALS (8 sets, daily range): BP systolic 91–122; BP diastolic 39–65; PULSE 54–61; RESP 16–20; TEMP 97.3–98.5; O2SAT 91–96
[2024-06-06 21:18] LABS: Alanine Aminotransferase 21 U/L (7-40); Alkaline Phosphatase 69 U/L (46-116); Anion Gap 6 (5-15); Aspartate Aminotransferase 13 U/L (13-40); BUN/Creatinine Ratio 22.4 (10.0-20.0); Bilirubin, Total 0.8 mg/dL (0.2-1.0); Calcium 9.5 mg/dL (8.7-10.4); Sodium 136 mmol/L (136-145)
[2024-06-06 21:25] LABS: Albumin 3.2 g/dL (3.2-4.8); Blood Urea Nitrogen 24 mg/dL (9-23); Carbon Dioxide 32 mmol/L (20-31); Chloride 98 mmol/L (98-107); Glucose 154 mg/dL (74-106); Potassium 2.8 mmol/L (3.5-5.1); Total Protein 5.3 g/dL (5.7-8.2)
[2024-06-06] MEDS: POTASSIUM CHL 20 Meq TABLET PO ONE (23:11)
[2024-06-07] VITALS (9 sets, daily range): BP systolic 99–111; BP diastolic 49–76; PULSE 60–73; RESP 16–18; TEMP 97.8–98.5; O2SAT 96–99
[2024-06-07 00:49] LABS: Alanine Aminotransferase 22 U/L (7-40); Albumin 3.2 g/dL (3.2-4.8); Alkaline Phosphatase 63 U/L (46-116); Anion Gap 6 (5-15); Aspartate Aminotransferase 19 U/L (13-40); BUN/Creatinine Ratio 25.8 (10.0-20.0); Calcium 9.5 mg/dL (8.7-10.4); Glucose 89 mg/dL (74-106); Sodium 137 mmol/L (136-145)
[2024-06-07 00:50] LABS: Bilirubin, Total 0.8 mg/dL (0.2-1.0); Blood Urea Nitrogen 25 mg/dL (9-23); Carbon Dioxide 33 mmol/L (20-31); Chloride 98 mmol/L (98-107); Potassium 2.9 mmol/L (3.5-5.1); Total Protein 5.2 g/dL (5.7-8.2)
[2024-06-07] MEDS: POTASSIUM CHL 20MEQ/100ML 100 ML IV SCH (01:45)
[2024-06-07] MEDS: POTASSIUM CHL 20 Meq TABLET PO ONE ×2 (02:36→13:28)
[2024-06-07 06:55] LABS: Alanine Aminotransferase 22 U/L (7-40); Alkaline Phosphatase 67 U/L (46-116); Anion Gap 9 (5-15); Aspartate Aminotransferase 22 U/L (13-40); BUN/Creatinine Ratio 25.5 (10.0-20.0); Bilirubin, Total 0.8 mg/dL (0.2-1.0); Calcium 9.7 mg/dL (8.7-10.4); Carbon Dioxide 29 mmol/L (20-31); Chloride 100 mmol/L (98-107); Glucose 88 mg/dL (74-106); Sodium 138 mmol/L (136-145)
[2024-06-07 07:00] LABS: Albumin 3.2 g/dL (3.2-4.8); Blood Urea Nitrogen 25 mg/dL (9-23); Potassium 3.3 mmol/L (3.5-5.1); Total Protein 5.3 g/dL (5.7-8.2)
--- NOTE | 2024-06-07 12:18 | DVHPN2 ---
Reviewed: Care Plan, H&P, Labs, Medications, Previous Orders, Radiology Changes from previous H/P or p: No Changes General: Per HPI Cardiovascular: Chest Pain, Palpitations, Orthopnea, Paroxysmal Noc. Dyspnea, E tabitha, Lt Headedness, Other Respiratory: Cough, Dry, Shortness of breath, SOB with excertion, Wheezing, H emoptysis, Pleuritic Pain, Sputum, Other Objective Vitals Vital Signs Date Time Temp Pulse Resp B/P (MAP) Pulse Ox O2 Delivery O2 Flow Rate FiO2 06/07/24 10:24 60 97/48 06/07/24 09:00 97.8 18 98 97.8 06/06/24 20:00 Nasal Cannula* 2 28 Intake/Output Intake and Output 06/07/24 07:00 Intake Total 925 ml Output Total 650 ml Balance 275 ml Intake Oral 675 ml IV Total 250 ml Output Urine Total 650 ml General Appearance: Alert HEENT: Atraumatic, PERRLA, EOMI Neck: Supple Lungs: Clear to auscultation, Normal air movement Cardiovascular: Regular rate, Normal S1, Normal S2, No murmurs, Gallops, Rubs Abdomen: Normal bowel sounds, Soft, No tenderness Psych/Mental Status: Other (Confused, sleepy) Medications Current Medications Medications Dose Ordered Sig/Keith Route Start Time Stop Time Status Last Admin Dose Admin Nitroglycerin 0.4 mg Q5MINP PRN SL 05/28/24 22:15 Morphine Sulfate 2 mg Q30M PRN IV 05/28/24 22:15 Doxycycline Hyclate 100 ml @ 50 mls/hr Q12H IV 05/29/24 01:00 06/07/24 01:12 50 MLS/HR Diagnostic Test (Pha) 1 strip ACHS 05/29/24 07:00 06/07/24 06:14 1 STRIP Insulin Human Regular ACHS SC 05/29/24 07:00 06/06/24 22:09 3 UNITS Dextrose 50 ml UD PRN IV 05/29/24 03:00 Atorvastatin Calcium 20 mg HS PO 05/29/24 22:00 06/06/24 22:03 20 MG Ceftriaxone Sodium 50 ml @ 100 mls/hr DAILY@09 IV 05/30/24 09:00 06/07/24 09:25 100 MLS/HR Enoxaparin Sodium 70 mg BID SC 05/30/24 22:00 06/07/24 09:25 70 MG Metoprolol Tartrate 50 mg BID PO 06/02/24 22:00 06/07/24 09:24 50 MG Amiodarone HCl 200 mg Q12HR PO 06/03/24 22:00 06/07/24 09:24 200 MG Furosemide 40 mg DAILY IV 06/04/24 10:00 06/06/24 10:04 40 MG Acetazolamide 500 mg Q12HR PO 06/04/24 22:00 06/07/24 11:43 500 MG Laboratory Results Laboratory Tests 06/04/24 11:55 06/07/24 05:47 Chemistry Test 06/06/24 20:46 06/07/24 00:05 06/07/24 05:47 Albumin 3.2 g/dL (3.2-4.8) 3.2 g/dL (3.2-4.8) 3.2 g/dL (3.2-4.8) Calcium Level 9.5 mg/dL (8.7-10.4) 9.5 mg/dL (8.7-10.4) 9.7 mg/dL (8.7-10.4) Total Protein 5.3 g/dL (5.7-8.2) L 5.2 g/dL (5.7-8.2) L 5.3 g/dL (5.7-8.2) L LFT Test 06/06/24 20:46 06/07/24 00:05 06/07/24 05:47 Alanine Aminotransferase (ALT) 21 U/L (7-40) 22 U/L (7-40) 22 U/L (7-40) Alkaline Phosphatase 69 U/L (46-116) 63 U/L (46-116) 67 U/L (46-116) Aspartate Amino Transferase (AST) 13 U/L (13-40) 19 U/L (13-40) 22 U/L (13-40) Total Bilirubin 0.8 mg/dL (0.2-1.0) 0.8 mg/dL (0.2-1.0) 0.8 mg/dL (0.2-1.0) Urinalysis Test 05/28/24 17:14 Urine Color Yellow (Yellow) Urine Clarity Turbid (Clear) H Urine pH 5.5 (5.0-9.0) Urine Specific [place] 1.024 (1.001-1.035) Urine Protein 1+ (Negative) H Urine Ketones Negative (Negative) Urine Blood Trace /uL (Negative) H Urine Nitrite Negative (Negative) Urine Bilirubin Negative (Negative) Urine Urobilinogen 2 mg/dL (Negative) H Urine Leukocyte Esterase Negative /uL (Negative) Urine RBC 2 /hpf (0 - 4) Urine Microscopic WBC 3 /HPF (0-5) Urine Squamous Epithelial Cells Few /hpf (<5) Urine Bacteria None seen /hpf (None Seen) Urine Hyaline Casts Mod /lpf (0 - 2) Urine Waxy Casts Few /lpf (0) Urine Mucus Few (None Seen) Urine Glucose Normal mg/dL (Normal) Microbiology Microbiology Date/Time Source Procedure Growth Status 05/29/24 10:00 Nose MRSA Screen - Final Complete 05/28/24 17:30 Blood Blood Culture - Final NO GROWTH AFTER 5 DAYS OF INCUBATION. Complete 05/28/24 17:14 Voided Urine Urine Culture - Final Complete Assessment/Plan Assessment/Plan # Acute toxic/metabolic encephalopathy due to severe sepsis due to viral/bacterial Gram-positive Gram-negative pneumonia # NSTEMI, likely type 2 likely secondary to an oxygen supply/demand mismatch likely multifactorial to severe sepsis/atrial fibrillation with rapid ventricular response/CHF exacerbation # unstable atrial fibrillation with rapid ventricular response likely due to severe sepsis due to viral/bacterial pneumonia(Gram-positive Gram-negative) # acute on chronic heart failure reduced ejection fraction exacerbation NYHA III due to AFib RVR due to severe sepsis # history of hypertension # history of coronary artery disease status post multiple PCI # Ruled out PE # history of severe mitral stenosis status post TAVR # acute hypoxemic respiratory failure due to acute on chronic CHF exacerbation NYHA III/COPD exacerbation in the setting of severe sepsis due to viral/bacterial pneumonia # Sepsis secondary to Viral pneumonia with possible superimposed atypical/Gram- positive and Gram-negative bacterial pneumonia # influenza type a pneumonia # COPD exacerbation due to severe sepsis due to viral/bacterial pneumonia # CHIKA due to cardiorenal syndrome type 1 in the setting of heart failure exacerbation # CHIKA due to the VMN # uncontrolled type 2 diabetes # severe sepsis likely due to viral/bacterial pneumonia # influenza type a pneumonia # Uncontrolled type 2 diabetes mellitus # non-anion gap metabolic acidosis likely due to acute kidney failure, bun 50 # chronic limb-threatening ischemia due to peripheral artery disease #respiratory acidosis with metabolic alkalosis 06/04/2024: pt appears to be confused awaiting for PT to evaluate 06/05/2024: continue with current care. continue with supplemental O2 PT/OT has not fully evaluated pt 06/06/2024 confusion improving pt is still very weak Plan discussed with: Patient Date of Service: Jun 06, 2024 Billing Provider: SUKHJINDER AGUIRRE DO Common Visit Codes: [id number] INP/OBS CARE(HIGH) SUKHJINDER AGUIRRE DO Jun 07, 2024 12:18
--- NOTE | 2024-06-07 14:33 | DVHDS2 ---
Discharge Summary Date of Admission May 28, 2024 at 22:11 Date of Discharge: Jun 07, 2024 Labs/Diagnostic Data: Laboratory Results Test 06/07/24 12:04 06/07/24 05:47 06/04/24 11:55 06/03/24 07:05 POC Glucose 204 mg/dl (70-106) Sodium Level 138 mmol/L (136-145) Potassium Level 3.3 mmol/L (3.5-5.1) Chloride Level 100 mmol/L (98-107) Carbon Dioxide Level 29 mmol/L (20-31) Anion Gap 9 (5-15) Blood Urea Nitrogen 25 mg/dL (9-23) Creatinine 0.98 mg/dL (0.550-1.02) Glomerular Filtration Rate Calc 57 mL/min (>90) BUN/Creatinine Ratio 25.5 (10.0-20.0) Serum Glucose 88 mg/dL (74-106) Calcium Level 9.7 mg/dL (8.7-10.4) Total Bilirubin 0.8 mg/dL (0.2-1.0) Aspartate Amino Transferase (AST) 22 U/L (13-40) Alanine Aminotransferase (ALT) 22 U/L (7-40) Alkaline Phosphatase 67 U/L (46-116) Total Protein 5.3 g/dL (5.7-8.2) Albumin 3.2 g/dL (3.2-4.8) White Blood Count 7.2 10^3/uL (4.4-10.8) Red Blood Count 5.68 10^6/uL (4.0-5.20) Hemoglobin 17.4 g/dL (12.2-16.2) Hematocrit 53.0 % (36.0-46.0) Mean Corpuscular Volume 93.3 fL (80.0-100.0) Mean Corpuscular Hemoglobin 30.6 pg (28.0-32.0) Mean Corpuscular Hemoglobin Concent 32.8 g/dL (32.0-36.0) Red Cell Distribution Width 14.9 % (11.8-14.3) Platelet Count 221 10^3/uL (140-450) Mean Platelet Volume 8.3 fL (6.9-10.8) Neutrophils (%) (Auto) 81.2 % (37.0-80.0) Lymphocytes (%) (Auto) 6.4 % (10.0-50.0) Monocytes (%) (Auto) 12.0 % (0.0-12.0) Eosinophils (%) (Auto) 0.2 % (0.0-7.0) Basophils (%) (Auto) 0.2 % (0.0-2.0) Neutrophils # (Auto) 5.9 10 ^3/uL (1.6-8.6) Lymphocytes # (Auto) 0.5 10 ^3/uL (0.4-5.4) Monocytes # (Auto) 0.9 10 ^3/uL (0-1.3) Eosinophils # (Auto) 0 10 ^3/uL (0-0.8) Basophils # (Auto) 0 10 ^3/uL (0-0.2) Nucleated Red Blood Cells 0.1 % Magnesium Level 2.2 mg/dL (1.6-2.6) Test 05/29/24 17:29 05/29/24 05:48 05/29/24 01:10 05/28/24 20:57 D-Dimer, Quantitative 1.33 mg/L FEU (0.0-0.49) Hemoglobin A1c 6.0 % A1C (<5.7) Troponin I High Sensitivity 295 ng/L (</=34) Triglycerides Level 133 mg/dL (< 150) Cholesterol Level 123 mg/dL (< 200) LDL Cholesterol 62 mg/dL (< 100) HDL Cholesterol 35 mg/dL (40-59) Thyroid Stimulating Hormone (TSH) 2.61 uIU/mL (0.55-4.78) Blood Gas Specimen Type Arterial Blood Gas Sample Site Left radial Blood Gas Patient Temperature 37.0 Arterial Blood Date Drawn [id number] Arterial Blood pH 7.310 (7.350-7.450) Arterial Blood Partial Pressure CO2 43.4 mmHg (32.0-45.0) Arterial Blood Partial Pressure O2 92.8 mmHg (83.0-108.0) Arterial Blood HCO3 21.4 mmol/L (21.0-28.0) Arterial Blood Oxygen Saturation 96.1 % (94.0-98.0) Arterial Blood Base Excess -4.8 mmol/L (-2.0-3.0) Arterial Blood Oxyhemoglobin 94.5 % (94.0-98.0) Arterial Blood Carboxyhemoglobin 1.1 % (0.5-1.5) Arterial Blood Methemoglobin 0.6 % (0.0-1.5) Glenn Test Yes Blood Gas Total Hemoglobin 16.60 g/dL (12.0-16.0) Blood Gas Liter Flow 5.00 Blood Gas Modality Nasal cannula FiO2 % 40.0 Lactic Acid Level 1.8 mmol/L (0.4-2.0) Test 05/28/24 18:19 05/28/24 17:30 05/28/24 17:14 Influenza Type A Antigen Positive (Negative) Influenza Type B Antigen Negative (Negative) SARS-CoV-2 Antigen (Rapid) Negative (NEGATIVE) B-Type Natriuretic Peptide 1114.71 pg/mL (0-100) Plasma/Serum Blood Alcohol < 3.0 mg/dL (<10) Urine Color Yellow (Yellow) Urine Clarity Turbid (Clear) Urine pH 5.5 (5.0-9.0) Urine Specific [place] 1.024 (1.001-1.035) Urine Protein 1+ (Negative) Urine Ketones Negative (Negative) Urine Blood Trace /uL (Negative) Urine Nitrite Negative (Negative) Urine Bilirubin Negative (Negative) Urine Urobilinogen 2 mg/dL (Negative) Urine Leukocyte Esterase Negative /uL (Negative) Urine RBC 2 /hpf (0 - 4) Urine Microscopic WBC 3 /HPF (0-5) Urine Squamous Epithelial Cells Few /hpf (<5) Urine Bacteria None seen /hpf (None Seen) Urine Hyaline Casts Mod /lpf (0 - 2) Urine Waxy Casts Few /lpf (0) Urine Mucus Few (None Seen) Urine Glucose Normal mg/dL (Normal) Urine Opiates Screen Neg (NEGATIVE) Urine Fentanyl Screen Neg (NEGATIVE) Urine Barbiturates Screen Neg (NEGATIVE) Urine Phencyclidine Screen Neg (NEGATIVE) Urine Amphetamines Screen Neg (NEGATIVE) Urine Benzodiazepines Screen Neg (NEGATIVE) Urine Cocaine Screen Neg (NEGATIVE) Urine Cannabinoids Screen Neg (NEGATIVE) Other Laboratory Tests 06/07/24 05:47 06/04/24 11:55 Brief Hx & Hospital Course: An 83-year-old female with a history of COPD, CHF, hypertension, coronary artery disease status post multiple PCIs, severe mitral stenosis, status post TAVR, pulmonary hypertension, and paroxysmal atrial fibrillation. She was brought in by EMS for evaluation of palpitations. The patients family reports three to four days of malaise and recent episodes of weakness and incontinence. En route to the hospital, an EKG showed atrial fibrillation with rapid ventricular response Upon arrival, the patient was tachycardic (HR 145) and hypertensive (BP 118/77), with complaints of chest pain and palpitations. Workup revealed positive influenza A, acute on chronic hypoxemic respiratory failure requiring supplemental oxygen (6L), and evidence of heart failure exacerbation with elevated BNP. Troponins were elevated. Cardiovascular: HFpEF, coronary artery disease (s/p PCI with multiple ANDREY), severe mitral stenosis, s/p TAVR, hypertension, paroxysmal atrial fibrillation Pulmonary: COPD, chronic hypoxemic respiratory failure o2 2lt Endocrine: Type 2 diabetes mellitus Other: Peripheral arterial disease ECHO September 2023: LAE CONC LVH EF >60% SEVERE MS MILD TR MILD AI PROSTHETIC AV Acute toxic/metabolic encephalopathy due to severe sepsis due to viral/bacterial Gram-positive Gram-negative pneumonia # NSTEMI, likely type 2 likely secondary to an oxygen supply/demand mismatch likely multifactorial to severe sepsis/atrial fibrillation with rapid ventricular response/CHF exacerbation # unstable atrial fibrillation with rapid ventricular response likely due to severe sepsis due to viral/bacterial pneumonia(Gram-positive Gram-negative) # acute on chronic heart failure reduced ejection fraction exacerbation NYHA III due to AFib RVR due to severe sepsis # history of hypertension # history of coronary artery disease status post multiple PCI # Ruled out PE # history of severe mitral stenosis status post TAVR # acute hypoxemic respiratory failure due to acute on chronic CHF exacerbation NYHA III/COPD exacerbation in the setting of severe sepsis due to viral/bacterial pneumonia # Sepsis secondary to Viral pneumonia with possible superimposed atypical/Gram- positive and Gram-negative bacterial pneumonia # influenza type a pneumonia # COPD exacerbation due to severe sepsis due to viral/bacterial pneumonia # CHIKA due to cardiorenal syndrome type 1 in the setting of heart failure exacerbation # CHIKA due to the VMN # uncontrolled type 2 diabetes # severe sepsis likely due to viral/bacterial pneumonia # influenza type a pneumonia # Uncontrolled type 2 diabetes mellitus # non-anion gap metabolic acidosis likely due to acute kidney failure, bun 50 # chronic limb-threatening ischemia due to peripheral artery disease #respiratory acidosis with metabolic alkalosis 06/04/2024: pt appears to be confused awaiting for PT to evaluate 06/05/2024: continue with current care. continue with supplemental O2 PT/OT has not fully evaluated pt 06/06/2024 confusion improving pt is still very weak 06/07/2024: discharged to home with self care Condition at Discharge: Good Final Diagnosis/Problems List see above Discharge Disposition: Home Discharge Instruct/Medications Diet: Cardiac 2g Na,low cholest Activity: No Restrictions, As Tolerated Discharge Statement: "Patient was advised to return to the ER or call 911 if any headaches, dizziness, shortness of breath, chest pain, abdominal pain, bleeding, fevers, or worsening of medical condition. Patient was counseled about treatment plan, medications, possible side effects, patientverbalized understanding. All questions were answered to the best of my ability. This discharge took greater then 30 minutes in planning, reviewing documentation, counseling the patient, and discussing with other team members." ASSESSMENT ASSESSMENT Assessment Date of Service: Jun 07, 2024 Billing Provider: SUKHJINDER AGUIRRE DO Common Visit Codes: 59894-ODY/OBS DISCH DAY >30min SUKHJINDER AGUIRRE DO Jun 07, 2024 14:33
--- NOTE | 2024-06-07 19:17 | DVHPN2 ---
Reviewed: Care Plan, H&P, Labs, Medications, Previous Orders, Radiology Changes from previous H/P or p: No Changes General: Per HPI Cardiovascular: Chest Pain, Palpitations, Orthopnea, Paroxysmal Noc. Dyspnea, E tabitha, Lt Headedness, Other Respiratory: Cough, Dry, Shortness of breath, SOB with excertion, Wheezing, H emoptysis, Pleuritic Pain, Sputum, Other Objective Vitals Vital Signs Date Time Temp Pulse Resp B/P (MAP) Pulse Ox O2 Delivery O2 Flow Rate FiO2 06/07/24 16:41 98.5 60 16 105/50 (68) 96 98.5 06/07/24 07:30 Nasal Cannula* 2 28 Intake/Output Intake and Output 06/07/24 07:00 Intake Total 925 ml Output Total 650 ml Balance 275 ml Intake Oral 675 ml IV Total 250 ml Output Urine Total 650 ml General Appearance: Alert HEENT: Atraumatic, PERRLA, EOMI Neck: Supple Lungs: Clear to auscultation, Normal air movement Cardiovascular: Regular rate, Normal S1, Normal S2, No murmurs, Gallops, Rubs Abdomen: Normal bowel sounds, Soft, No tenderness Psych/Mental Status: Other Medications Current Medications Medications Dose Ordered Sig/Keith Route Start Time Stop Time Status Last Admin Dose Admin Nitroglycerin 0.4 mg Q5MINP PRN SL 05/28/24 22:15 Morphine Sulfate 2 mg Q30M PRN IV 05/28/24 22:15 Doxycycline Hyclate 100 ml @ 50 mls/hr Q12H IV 05/29/24 01:00 06/07/24 13:28 50 MLS/HR Diagnostic Test (Pha) 1 strip ACHS 05/29/24 07:00 06/07/24 17:37 1 STRIP Insulin Human Regular ACHS SC 05/29/24 07:00 06/07/24 13:29 4 UNITS Dextrose 50 ml UD PRN IV 05/29/24 03:00 Atorvastatin Calcium 20 mg HS PO 05/29/24 22:00 06/06/24 22:03 20 MG Ceftriaxone Sodium 50 ml @ 100 mls/hr DAILY@09 IV 05/30/24 09:00 06/07/24 09:25 100 MLS/HR Enoxaparin Sodium 70 mg BID SC 05/30/24 22:00 06/07/24 09:25 70 MG Metoprolol Tartrate 50 mg BID PO 06/02/24 22:00 06/07/24 09:24 50 MG Amiodarone HCl 200 mg Q12HR PO 06/03/24 22:00 06/07/24 09:24 200 MG Furosemide 40 mg DAILY IV 06/04/24 10:00 06/06/24 10:04 40 MG Acetazolamide 500 mg Q12HR PO 06/04/24 22:00 06/07/24 11:43 500 MG Laboratory Results Laboratory Tests 06/04/24 11:55 06/07/24 05:47 Chemistry Test 06/06/24 20:46 06/07/24 00:05 06/07/24 05:47 Albumin 3.2 g/dL (3.2-4.8) 3.2 g/dL (3.2-4.8) 3.2 g/dL (3.2-4.8) Calcium Level 9.5 mg/dL (8.7-10.4) 9.5 mg/dL (8.7-10.4) 9.7 mg/dL (8.7-10.4) Total Protein 5.3 g/dL (5.7-8.2) L 5.2 g/dL (5.7-8.2) L 5.3 g/dL (5.7-8.2) L LFT Test 06/06/24 20:46 06/07/24 00:05 06/07/24 05:47 Alanine Aminotransferase (ALT) 21 U/L (7-40) 22 U/L (7-40) 22 U/L (7-40) Alkaline Phosphatase 69 U/L (46-116) 63 U/L (46-116) 67 U/L (46-116) Aspartate Amino Transferase (AST) 13 U/L (13-40) 19 U/L (13-40) 22 U/L (13-40) Total Bilirubin 0.8 mg/dL (0.2-1.0) 0.8 mg/dL (0.2-1.0) 0.8 mg/dL (0.2-1.0) Urinalysis Test 05/28/24 17:14 Urine Color Yellow (Yellow) Urine Clarity Turbid (Clear) H Urine pH 5.5 (5.0-9.0) Urine Specific [place] 1.024 (1.001-1.035) Urine Protein 1+ (Negative) H Urine Ketones Negative (Negative) Urine Blood Trace /uL (Negative) H Urine Nitrite Negative (Negative) Urine Bilirubin Negative (Negative) Urine Urobilinogen 2 mg/dL (Negative) H Urine Leukocyte Esterase Negative /uL (Negative) Urine RBC 2 /hpf (0 - 4) Urine Microscopic WBC 3 /HPF (0-5) Urine Squamous Epithelial Cells Few /hpf (<5) Urine Bacteria None seen /hpf (None Seen) Urine Hyaline Casts Mod /lpf (0 - 2) Urine Waxy Casts Few /lpf (0) Urine Mucus Few (None Seen) Urine Glucose Normal mg/dL (Normal) Microbiology Microbiology Date/Time Source Procedure Growth Status 05/29/24 10:00 Nose MRSA Screen - Final Complete 05/28/24 17:30 Blood Blood Culture - Final NO GROWTH AFTER 5 DAYS OF INCUBATION. Complete 05/28/24 17:14 Voided Urine Urine Culture - Final Complete Assessment/Plan Assessment/Plan An 83-year-old female with a history of COPD, CHF, hypertension, coronary artery disease status post multiple PCIs, severe mitral stenosis, status post TAVR, pulmonary hypertension, and paroxysmal atrial fibrillation. She was brought in by EMS for evaluation of palpitations. The patients family reports three to four days of malaise and recent episodes of weakness and incontinence. En route to the hospital, an EKG showed atrial fibrillation with rapid ventricular response Upon arrival, the patient was tachycardic (HR 145) and hypertensive (BP 118/77), with complaints of chest pain and palpitations. Workup revealed positive influenza A, acute on chronic hypoxemic respiratory failure requiring supplemental oxygen (6L), and evidence of heart failure exacerbation with elevated BNP. Troponins were elevated. Cardiovascular: HFpEF, coronary artery disease (s/p PCI with multiple ANDREY), severe mitral stenosis, s/p TAVR, hypertension, paroxysmal atrial fibrillation Pulmonary: COPD, chronic hypoxemic respiratory failure o2 2lt Endocrine: Type 2 diabetes mellitus Other: Peripheral arterial disease ECHO September 2023: LAE CONC LVH EF >60% SEVERE MS MILD TR MILD AI PROSTHETIC AV Acute toxic/metabolic encephalopathy due to severe sepsis due to viral/bacterial Gram-positive Gram-negative pneumonia # NSTEMI, likely type 2 likely secondary to an oxygen supply/demand mismatch likely multifactorial to severe sepsis/atrial fibrillation with rapid ventricular response/CHF exacerbation # unstable atrial fibrillation with rapid ventricular response likely due to severe sepsis due to viral/bacterial pneumonia(Gram-positive Gram-negative) # acute on chronic heart failure reduced ejection fraction exacerbation NYHA III due to AFib RVR due to severe sepsis # history of hypertension # history of coronary artery disease status post multiple PCI # Ruled out PE # history of severe mitral stenosis status post TAVR # acute hypoxemic respiratory failure due to acute on chronic CHF exacerbation NYHA III/COPD exacerbation in the setting of severe sepsis due to viral/bacterial pneumonia # Sepsis secondary to Viral pneumonia with possible superimposed atypical/Gram- positive and Gram-negative bacterial pneumonia # influenza type a pneumonia # COPD exacerbation due to severe sepsis due to viral/bacterial pneumonia # CHIKA due to cardiorenal syndrome type 1 in the setting of heart failure exacerbation # CHIKA due to the VMN # uncontrolled type 2 diabetes # severe sepsis likely due to viral/bacterial pneumonia # influenza type a pneumonia # Uncontrolled type 2 diabetes mellitus # non-anion gap metabolic acidosis likely due to acute kidney failure, bun 50 # chronic limb-threatening ischemia due to peripheral artery disease #respiratory acidosis with metabolic alkalosis 06/04/2024: pt appears to be confused awaiting for PT to evaluate 06/05/2024: continue with current care. continue with supplemental O2 PT/OT has not fully evaluated pt 06/06/2024 confusion improving pt is still very weak 06/07/2024: discharged to home with self care however, family declines to take pt back as pt is not able to walk on her own needs PT/OT to evaluate pt for PT home vs SNF Plan discussed with: Other (nursing staff) My Orders Orders - SUKHJINDER AGUIRRE DO Procedure Category Date Status Time Discharge DISCHARGE 06/07/24 Transmitted 14:32 Date of Service: Jun 07, 2024 Billing Provider: SUKHJINDER AGUIRRE DO Common Visit Codes: [id number] INP/OBS CARE(HIGH) SUKHJINDER AGUIRRE DO Jun 07, 2024 19:17
[2024-06-08 01:00] VITALS: BP 110/53; PULSE 65; RESP 18; TEMP 98.3; O2SAT 95
[2024-06-08 05:00] VITALS: BP 125/50; PULSE 63; RESP 18; TEMP 97.4; O2SAT 97
[2024-06-08 07:30] VITALS: PULSE 68
[2024-06-08 09:00] VITALS: BP 133/77; PULSE 69; RESP 19; TEMP 97.6; O2SAT 98
[2024-06-08 13:00] VITALS: BP 130/61; PULSE 56; RESP 19; TEMP 97.4; O2SAT 100
--- NOTE | 2024-06-08 15:09 | DVHDSRES ---
Discharge Summary Date of Admission Resident Creating Document: ANTIONE SWANSON RESIDENT May 28, 2024 at 22:11 Date of Discharge: Jun 07, 2024 Admitting Diagnosis Acute hypoxic respiratory failure likely due to pneumonia Atrial fibrillation with rapid ventricular rate Labs/Diagnostic Data: Laboratory Results Test 06/08/24 11:45 06/07/24 05:47 06/04/24 11:55 06/03/24 07:05 POC Glucose 136 mg/dl (70-106) Sodium Level 138 mmol/L (136-145) Potassium Level 3.3 mmol/L (3.5-5.1) Chloride Level 100 mmol/L (98-107) Carbon Dioxide Level 29 mmol/L (20-31) Anion Gap 9 (5-15) Blood Urea Nitrogen 25 mg/dL (9-23) Creatinine 0.98 mg/dL (0.550-1.02) Glomerular Filtration Rate Calc 57 mL/min (>90) BUN/Creatinine Ratio 25.5 (10.0-20.0) Serum Glucose 88 mg/dL (74-106) Calcium Level 9.7 mg/dL (8.7-10.4) Total Bilirubin 0.8 mg/dL (0.2-1.0) Aspartate Amino Transferase (AST) 22 U/L (13-40) Alanine Aminotransferase (ALT) 22 U/L (7-40) Alkaline Phosphatase 67 U/L (46-116) Total Protein 5.3 g/dL (5.7-8.2) Albumin 3.2 g/dL (3.2-4.8) White Blood Count 7.2 10^3/uL (4.4-10.8) Red Blood Count 5.68 10^6/uL (4.0-5.20) Hemoglobin 17.4 g/dL (12.2-16.2) Hematocrit 53.0 % (36.0-46.0) Mean Corpuscular Volume 93.3 fL (80.0-100.0) Mean Corpuscular Hemoglobin 30.6 pg (28.0-32.0) Mean Corpuscular Hemoglobin Concent 32.8 g/dL (32.0-36.0) Red Cell Distribution Width 14.9 % (11.8-14.3) Platelet Count 221 10^3/uL (140-450) Mean Platelet Volume 8.3 fL (6.9-10.8) Neutrophils (%) (Auto) 81.2 % (37.0-80.0) Lymphocytes (%) (Auto) 6.4 % (10.0-50.0) Monocytes (%) (Auto) 12.0 % (0.0-12.0) Eosinophils (%) (Auto) 0.2 % (0.0-7.0) Basophils (%) (Auto) 0.2 % (0.0-2.0) Neutrophils # (Auto) 5.9 10 ^3/uL (1.6-8.6) Lymphocytes # (Auto) 0.5 10 ^3/uL (0.4-5.4) Monocytes # (Auto) 0.9 10 ^3/uL (0-1.3) Eosinophils # (Auto) 0 10 ^3/uL (0-0.8) Basophils # (Auto) 0 10 ^3/uL (0-0.2) Nucleated Red Blood Cells 0.1 % Magnesium Level 2.2 mg/dL (1.6-2.6) Test 05/29/24 17:29 05/29/24 05:48 05/29/24 01:10 05/28/24 20:57 D-Dimer, Quantitative 1.33 mg/L FEU (0.0-0.49) Hemoglobin A1c 6.0 % A1C (<5.7) Troponin I High Sensitivity 295 ng/L (</=34) Triglycerides Level 133 mg/dL (< 150) Cholesterol Level 123 mg/dL (< 200) LDL Cholesterol 62 mg/dL (< 100) HDL Cholesterol 35 mg/dL (40-59) Thyroid Stimulating Hormone (TSH) 2.61 uIU/mL (0.55-4.78) Blood Gas Specimen Type Arterial Blood Gas Sample Site Left radial Blood Gas Patient Temperature 37.0 Arterial Blood Date Drawn [id number] Arterial Blood pH 7.310 (7.350-7.450) Arterial Blood Partial Pressure CO2 43.4 mmHg (32.0-45.0) Arterial Blood Partial Pressure O2 92.8 mmHg (83.0-108.0) Arterial Blood HCO3 21.4 mmol/L (21.0-28.0) Arterial Blood Oxygen Saturation 96.1 % (94.0-98.0) Arterial Blood Base Excess -4.8 mmol/L (-2.0-3.0) Arterial Blood Oxyhemoglobin 94.5 % (94.0-98.0) Arterial Blood Carboxyhemoglobin 1.1 % (0.5-1.5) Arterial Blood Methemoglobin 0.6 % (0.0-1.5) Glenn Test Yes Blood Gas Total Hemoglobin 16.60 g/dL (12.0-16.0) Blood Gas Liter Flow 5.00 Blood Gas Modality Nasal cannula FiO2 % 40.0 Lactic Acid Level 1.8 mmol/L (0.4-2.0) Test 05/28/24 18:19 05/28/24 17:30 05/28/24 17:14 Influenza Type A Antigen Positive (Negative) Influenza Type B Antigen Negative (Negative) SARS-CoV-2 Antigen (Rapid) Negative (NEGATIVE) B-Type Natriuretic Peptide 1114.71 pg/mL (0-100) Plasma/Serum Blood Alcohol < 3.0 mg/dL (<10) Urine Color Yellow (Yellow) Urine Clarity Turbid (Clear) Urine pH 5.5 (5.0-9.0) Urine Specific Bob White 1.024 (1.001-1.035) Urine Protein 1+ (Negative) Urine Ketones Negative (Negative) Urine Blood Trace /uL (Negative) Urine Nitrite Negative (Negative) Urine Bilirubin Negative (Negative) Urine Urobilinogen 2 mg/dL (Negative) Urine Leukocyte Esterase Negative /uL (Negative) Urine RBC 2 /hpf (0 - 4) Urine Microscopic WBC 3 /HPF (0-5) Urine Squamous Epithelial Cells Few /hpf (<5) Urine Bacteria None seen /hpf (None Seen) Urine Hyaline Casts Mod /lpf (0 - 2) Urine Waxy Casts Few /lpf (0) Urine Mucus Few (None Seen) Urine Glucose Normal mg/dL (Normal) Urine Opiates Screen Neg (NEGATIVE) Urine Fentanyl Screen Neg (NEGATIVE) Urine Barbiturates Screen Neg (NEGATIVE) Urine Phencyclidine Screen Neg (NEGATIVE) Urine Amphetamines Screen Neg (NEGATIVE) Urine Benzodiazepines Screen Neg (NEGATIVE) Urine Cocaine Screen Neg (NEGATIVE) Urine Cannabinoids Screen Neg (NEGATIVE) Other Laboratory Tests 06/07/24 05:47 06/04/24 11:55 Brief Hx & Hospital Course: HPI- An 83-year-old female with a history of COPD, CHF, hypertension, coronary artery disease status post multiple PCIs, severe mitral stenosis, status post TAVR, pulmonary hypertension, and paroxysmal atrial fibrillation. She was brought in by EMS for evaluation of palpitations. The patients family reports three to four days of malaise and recent episodes of weakness and incontinence. En route to the hospital, an EKG showed atrial fibrillation with rapid ventricular response Upon arrival, the patient was tachycardic (HR 145) and hypertensive (BP 118/77), with complaints of chest pain and palpitations. Workup revealed positive influenza A, acute on chronic hypoxemic respiratory failure requiring supplemental oxygen (6L), and evidence of heart failure exacerbation with elevated BNP. Troponins were elevated. Hospital course-patient is brought to the due to malaise weakness and incontinence. Patient was found to have atrial fibrillation with a rapid ventricular rate and pneumonia. Patient was admitted to the hospital due to acute hypoxic respiratory failure likely due to pneumonia and atrial fibrillation with a ventricular rate. En route to the hospital, an EKG showed atrial fibrillation with rapid ventricular response Upon arrival, the patient was tachycardic (HR 145) and hypertensive (BP 118/77), with complaints of chest pain and palpitations. Workup revealed positive influenza A, acute on chronic hypoxemic respiratory failure requiring supplemental oxygen (6L), and evidence of heart failure exacerbation with elevated BNP. Troponins were elevated. Patient was treated conservatively with IV antibiotic ceftriaxone and doxycycline and also with the anterior mid medication. Patient's symptom improved with conservative management. Patient was evaluated by the Physical therapy and recommended for [facility] facility for physical therapy. Patient with a history of TAVR and paroxysmal atrial fibrillation. Dental Lab Technician spoke to patient's son Manoj, , discussed the need of blood thinner but patient's son denied blood thinner due to risk of bleeding even after explained the need of blood thinner. Patient is being sent to [facility] facility for physical therapy. Patient was hemodynamically stable on discharge. Diagnosis- # Acute toxic/metabolic encephalopathy due to severe sepsis due to viral/bacterial Gram-positive Gram-negative pneumonia # NSTEMI, likely type 2 likely secondary to an oxygen supply/demand mismatch likely multifactorial to severe sepsis/atrial fibrillation with rapid ventricular response/CHF exacerbation # unstable atrial fibrillation with rapid ventricular response likely due to severe sepsis due to viral/bacterial pneumonia(Gram-positive Gram-negative) # acute on chronic heart failure reduced ejection fraction exacerbation NYHA III due to AFib RVR due to severe sepsis # history of hypertension # history of coronary artery disease status post multiple PCI # Ruled out PE # hypokalemia-replenished # history of severe mitral stenosis status post TAVR # acute hypoxemic respiratory failure due to acute on chronic CHF exacerbation NYHA III/COPD exacerbation in the setting of severe sepsis due to viral/bacterial pneumonia # Sepsis secondary to Viral pneumonia with possible superimposed atypical/Gram- positive and Gram-negative bacterial pneumonia # influenza type a pneumonia # COPD exacerbation due to severe sepsis due to viral/bacterial pneumonia # CHIKA due to cardiorenal syndrome type 1 in the setting of heart failure exacerbation # CHIKA due to the VMN # uncontrolled type 2 diabetes # severe sepsis likely due to viral/bacterial pneumonia # influenza type a pneumonia # Uncontrolled type 2 diabetes mellitus # non-anion gap metabolic acidosis likely due to acute kidney failure, bun 50 # chronic limb-threatening ischemia due to peripheral artery disease #respiratory acidosis with metabolic alkalosis Discharge plan -patient was discharged to [facility] for [facility] -patient's son Manoj, , diffuse blood thinner due to risk of bleeding -. Antibiotic as course was completed -please resume home medications -we will continue other medications -MD at SNF to follow up -patient and family was advised to follow up with the Cardiology as per schedule. Condition at Discharge: Stable Final Diagnosis/Problems List Acute toxic/metabolic encephalopathy due to severe sepsis due to viral/bacterial Gram-positive Gram-negative pneumonia # NSTEMI, likely type 2 likely secondary to an oxygen supply/demand mismatch likely multifactorial to severe sepsis/atrial fibrillation with rapid ventricular response/CHF exacerbation # unstable atrial fibrillation with rapid ventricular response likely due to severe sepsis due to viral/bacterial pneumonia(Gram-positive Gram-negative) # acute on chronic heart failure reduced ejection fraction exacerbation NYHA III due to AFib RVR due to severe sepsis # history of hypertension # history of coronary artery disease status post multiple PCI # Ruled out PE # history of severe mitral stenosis status post TAVR # acute hypoxemic respiratory failure due to acute on chronic CHF exacerbation NYHA III/COPD exacerbation in the setting of severe sepsis due to viral/bacterial pneumonia # Sepsis secondary to Viral pneumonia with possible superimposed atypical/Gram-positive and Gram-negative bacterial pneumonia # influenza type a pneumonia # COPD exacerbation due to severe sepsis due to viral/bacterial pneumonia # CHIKA due to cardiorenal syndrome type 1 in the setting of heart failure exacerbation # CHIKA due to the VMN Hypokalemia-replenished # uncontrolled type 2 diabetes # severe sepsis likely due to viral/bacterial pneumonia # influenza type a pneumonia # Uncontrolled type 2 diabetes mellitus # non-anion gap metabolic acidosis likely due to acute kidney failure, bun 50 # chronic limb-threatening ischemia due to peripheral artery disease #respiratory acidosis with metabolic alkalosis Discharge Disposition: [facility] Discharge Instruct/Medications Diet: Cardiac 2g Na,low cholest Activity: No Restrictions, As Tolerated Follow Up/Referral: MD AT SNF Please follow up with your consumer safety inspector as per schedule Medications: Please resume home medications Discharge Statement: "Patient was advised to return to the ER or call 911 if any headaches, dizziness, shortness of breath, chest pain, abdominal pain, bleeding, fevers, or worsening of medical condition. Patient was counseled about treatment plan, medications, possible side effects, patientverbalized understanding. All questions were answered to the best of my ability. This discharge took greater then 30 minutes in planning, reviewing documentation, counseling the patient, and discussing with other team members." ASSESSMENT ASSESSMENT Assessment Acute toxic/metabolic encephalopathy due to severe sepsis due to viral/bacterial Gram-positive Gram-negative pneumonia # NSTEMI, likely type 2 likely secondary to an oxygen supply/demand mismatch likely multifactorial to severe sepsis/atrial fibrillation with rapid ventricular response/CHF exacerbation # unstable atrial fibrillation with rapid ventricular response likely due to severe sepsis due to viral/bacterial pneumonia(Gram-positive Gram-negative) # acute on chronic heart failure reduced ejection fraction exacerbation NYHA III due to AFib RVR due to severe sepsis # history of hypertension # history of coronary artery disease status post multiple PCI # Ruled out PE # history of severe mitral stenosis status post TAVR # acute hypoxemic respiratory failure due to acute on chronic CHF exacerbation NYHA III/COPD exacerbation in the setting of severe sepsis due to viral/bacterial pneumonia # Sepsis secondary to Viral pneumonia with possible superimposed atypical/Gram- positive and Gram-negative bacterial pneumonia # influenza type a pneumonia # COPD exacerbation due to severe sepsis due to viral/bacterial pneumonia # CHIKA due to cardiorenal syndrome type 1 in the setting of heart failure exacerbation # CHIKA due to the VMN Hypokalemia-replenished # uncontrolled type 2 diabetes # severe sepsis likely due to viral/bacterial pneumonia # influenza type a pneumonia # Uncontrolled type 2 diabetes mellitus # non-anion gap metabolic acidosis likely due to acute kidney failure, bun 50 # chronic limb-threatening ischemia due to peripheral artery disease #respiratory acidosis with metabolic alkalosis Date of Service: Jun 07, 2024 Billing Provider: RAIZA SOW MD Common Visit Codes: 28829-SDU/OBS DISCH DAY >30min WILIAN PADILLA RESIDENT Jun 08, 2024 15:09 RAIZA SOW MD Jun 09, 2024 23:59
[2024-06-08 16:59] LABS: Chloride 103 mmol/L (98-107); Sodium 137 mmol/L (136-145)
[2024-06-08 17:00] VITALS: BP 135/54; PULSE 57; RESP 18; TEMP 97.5; O2SAT 98
[2024-06-08 17:01] LABS: Anion Gap 6 (5-15); Calcium 9.3 mg/dL (8.7-10.4); Carbon Dioxide 28 mmol/L (20-31)
[2024-06-08 17:06] LABS: BUN/Creatinine Ratio 20.7 (10.0-20.0); Blood Urea Nitrogen 19 mg/dL (9-23)
[2024-06-08 17:11] LABS: Glucose 137 mg/dL (74-106); Potassium 3.3 mmol/L (3.5-5.1)
== END 2024-06-08 19:48 | DRG 871 ==
LOC: ER 16:35 → EDBD 16:35 → OVERFLOW 22:11 → TELE-CENTR 06-01 16:36
PROVIDERS: ADMIT Internal Medicine; ATTEND Emergency Medicine
PROC: 05HB33Z Insertion of Infusion Device into Right Basilic Vein, Percutaneous Approach (ICD-10-PCS; principal; 2024-06-03)
PROC: B54MZZA Ultrasonography of Right Upper Extremity Veins, Guidance (ICD-10-PCS; 2024-06-03)
DX: A41.50 Gram-negative sepsis, unspecified (principal); G92.8 Other toxic encephalopathy; I21.A1 Myocardial infarction type 2; J15.69 Pneumonia due to other Gram-negative bacteria; J10.01 Influenza due to other identified influenza virus with the same other identified influenza virus pneumonia; J12.9 Viral pneumonia, unspecified; N17.0 Acute kidney failure with tubular necrosis; J96.21 Acute and chronic respiratory failure with hypoxia; I50.43 Acute on chronic combined systolic (congestive) and diastolic (congestive) heart failure; J15.9 Unspecified bacterial pneumonia; E87.20 Acidosis, unspecified; J44.1 Chronic obstructive pulmonary disease with (acute) exacerbation; J44.0 Chronic obstructive pulmonary disease with (acute) lower respiratory infection; I13.0 Hypertensive heart and chronic kidney disease with heart failure and stage 1 through stage 4 chronic kidney disease, or unspecified chronic kidney disease; E87.4 Mixed disorder of acid-base balance; N18.1 Chronic kidney disease, stage 1; Z20.822 Contact with and (suspected) exposure to COVID-19; I34.2 Nonrheumatic mitral (valve) stenosis; R65.20 Severe sepsis without septic shock; F17.210 Nicotine dependence, cigarettes, uncomplicated; E11.22 Type 2 diabetes mellitus with diabetic chronic kidney disease; E11.51 Type 2 diabetes mellitus with diabetic peripheral angiopathy without gangrene; R74.01 Elevation of levels of liver transaminase levels; I27.29 Other secondary pulmonary hypertension; I25.10 Atherosclerotic heart disease of native coronary artery without angina pectoris; I48.0 Paroxysmal atrial fibrillation; Z79.2 Long term (current) use of antibiotics; Z79.899 Other long term (current) drug therapy; Z90.710 Acquired absence of both cervix and uterus; Z95.2 Presence of prosthetic heart valve; Z98.61 Coronary angioplasty status; Z79.82 Long term (current) use of aspirin; Z79.84 Long term (current) use of oral hypoglycemic drugs
CPT/HCPCS: 36415; 36600; 70450; 71045; 80048; 80053; 80061; 80307; 80320; 81001; 82805; 82962; 83036; 83605; 83735; 83880; 84443; 84484; 85025; 85379; 87040; 87081; 87086; 87426; 87804; 93005; 93306; 93925; 93970; 94640; 96361; 96365; 96367; 96375; 96376; 97163; 99291; G0378; G9035; J1815

== ENCOUNTER 2024-06-22 19:02 | Inpatient (IN) | payer OTHER ==
[~2024-06-22] VITALS: Ht 171.4 cm; Wt 60.0 kg
[~2024-06-22 19:02] MED LIST changes: +FURO1TAB33 PO
--- NOTE | 2024-06-22 19:15 | ED.PDOC ---
SOB-HPI HPI Comments This is an 83-year-old female who comes in with chief complaint of shortness for breath. The patient had an argument with her son and developed some shortness a breath approximately 1 hour prior to arrival. She typically is on oxygen nasal cannula at 4 L. when the paramedics arrived, the patient was saturating at a pproximately 87%. She was started on a breathing treatment of albuterol and Atrovent. After the treatment, she did experience some relief. She did state that she had a mild cough but no fever. The patient was recently discharged from our facility for sepsis. She denies any chest pain at this time. Chief Complaint: Shortness of Breath Time Seen by MD: 19:09 Primary Care Provider: UNKNOWN Reviewed notes: Nurses Notes, Uniforms Sales Representative Notes, Medications, Allergies (No allergies to medications) Information Source: Emergency Med Personnel Mode of Arrival: EMS Severity: Moderate Timing: Minutes (Started 45 minutes ago) Duration: Since onset Context: At Rest PE Risk Factors: None History of: COPD, CHF Prehospital treatment: Breathing Tx, Store Director, IVF Modifying Factors: Nothing Associated Signs and Symptoms: Wheeze, Cough If cough with SOB: Non-Productive Past Medical History PAST MEDICAL HISTORY: Arthritis, CAD, CHF, COPD, DM, High Lipids, HTN, LA, UTI'S Past Medical History (Other): Neuropathy Surgical History: Hysterectomy, PTCA, Tonsillectomy Surgical History (Other): Aortic valve replacement, cataract surgery GRADES 6 THROUGH 8 TEACHER History: No Pertinent GRADES 6 THROUGH 8 TEACHER History, Ectopic Family History Family History: No family hx of HTN Social History Smoker: Cigarettes, Cigar, Less Than 1 Pack/Day Alcohol: Denies ETOH Use Drugs: Denies Drug Use Lives In: Home Physical Exam General Appearance: Moderate Distress HEENT: Normal ENT Inspection, Pharynx Normal, TMs Normal Neck: Full Range of Motion, Non-Tender, Normal, Normal Inspection Respiratory: Chest Non-Tender, Decreased Breath Sounds, Respiratory Distress, Wheezing Cardiovascular: No Edema, No JVD, No Murmur, No Gallop, Normal Peripheral Pulses, Regular Rate/Rhythm Breast Exam: Deferred Gastrointestinal: No Organomegaly, Non Tender, No Pulsatile Mass, Normal Bowel Sounds, Soft Genitalia: Deferred Pelvic: Deferred Rectal: Deferred Extremities: No calf tenderness, Normal capillary refill, Normal inspection, Normal range of motion, Non-tender, No pedal edema Musculoskeletal : Apperance: Normal Neurologic: Alert, manager cafe II-XII nml as Tested, No Motor Deficits, Normal Affect, Normal Mood, No Sensory Deficits Cerebellar Function: Normal Reflexes: Normal Skin: Dry, Normal Color, Warm Lymphatic: No Adenopathy EKG EKG : Pulse Rate (adult): 52 [place]: RAD Cardiac Rhythm: SB ST: Nonsp Was a procedure done? Was a procedure done?: No Differential Dx Differential Diagnosis: Asthma, Bronchitis, CHF, COPD, Pneumonia X-Ray, Labs, Meds, VS Vital Signs Date Time Temp Pulse Resp B/P (MAP) Pulse Ox O2 Delivery O2 Flow Rate FiO2 06/22/24 19:19 52 06/22/24 19:09 52 06/22/24 19:08 90 Nasal Cannula* 4 36 06/22/24 19:03 98.5 76 24 121/62 (81) 90 Lab Test 06/22/24 20:04 Range/Units White Blood Count 7.2 4.4-10.8 10^3/uL Red Blood Count 5.19 4.0-5.20 10^6/uL Hemoglobin 15.8 12.2-16.2 g/dL Hematocrit 51.8 H 36.0-46.0 % Mean Corpuscular Volume 99.8 80.0-100.0 fL Mean Corpuscular Hemoglobin 30.6 28.0-32.0 pg Mean Corpuscular Hemoglobin Concent 30.6 L 32.0-36.0 g/dL Red Cell Distribution Width 16.3 H 11.8-14.3 % Platelet Count 157 140-450 10^3/uL Mean Platelet Volume 8.4 6.9-10.8 fL Neutrophils (%) (Auto) 74.5 37.0-80.0 % Lymphocytes (%) (Auto) 12.6 10.0-50.0 % Monocytes (%) (Auto) 10.3 0.0-12.0 % Eosinophils (%) (Auto) 2.1 0.0-7.0 % Basophils (%) (Auto) 0.5 0.0-2.0 % Neutrophils # (Auto) 5.4 1.6-8.6 10 ^3/uL Lymphocytes # (Auto) 0.9 0.4-5.4 10 ^3/uL Monocytes # (Auto) 0.7 0-1.3 10 ^3/uL Eosinophils # (Auto) 0.2 0-0.8 10 ^3/uL Basophils # (Auto) 0 0-0.2 10 ^3/uL Nucleated Red Blood Cells 0.2 % Troponin I High Sensitivity 32 </=34 ng/L IV Hep-Lock was established The patient was given Solu-Medrol 125 mg IV push The chest x-ray shows: IMPRESSION: 1. Borderline heart size with possibly calcified mitral annulus. Lungs have an appearance suggesting chronic lung disease.Follow-up CT The CBC is within normal limits The troponin levels negative At this time, the patient remained somewhat bradycardic The patient did receive the breathing treatment for the COPD exacerbation At this time, the patient was being admitted to the hospitalist The diagnosis is COPD exacerbation Images Reviewed?: Images reviewed and evaluated by me Time of 1ST Reevaluation: 19:18 Reevaluation 1ST: Improved Patient Education/Counseling: Diagnosis, Treatment, Prognosis Family Education/Counseling: No Family Present Departure 1 Departure Time of Disposition: 21:08 Impression: Primary Impression: Acute respiratory failure Qualified Codes: J96.00 - Acute respiratory failure, unspecified whether with hypoxia or hypercapnia Additional Impression: COPD exacerbation Disposition: ADMITTED INPATIENT Admit to: Tele Condition: Fair Critical Care Note Critical Care Time?: Yes (45 min-critical care time only) Stability Stability form required: Yes Unstable for transfer: Telemetry monitoring (Telemetry monitoring required), ED Physician Assesment (Clinical assesment) Heart Score Heart Score: Heart Score Response (Comments) Value History Moderate Suspicious 1 EKG Normal 0 Age >65 2 Risk Factors >3 or Hx ASHD 2 Troponin Normal limit 0 Total 5 DARELL COREY MD Jun 22, 2024 19:15
[2024-06-22 20:19] LABS: Basophils # (auto) 0 10 ^3/uL (0-0.2); Basophils % (auto) 0.5 % (0.0-2.0); Eosinophils # (auto) 0.2 10 ^3/uL (0-0.8); Eosinophils % (auto) 2.1 % (0.0-7.0); Hematocrit 51.8 % (36.0-46.0); Hemoglobin 15.8 g/dL (12.2-16.2); Lymphocytes # (auto) 0.9 10 ^3/uL (0.4-5.4); Lymphocytes % (auto) 12.6 % (10.0-50.0); Mean Corpuscular Hemoglobin 30.6 pg (28.0-32.0); Mean Corpuscular Hgb Conc. 30.6 g/dL (32.0-36.0); Mean Corpuscular Volume 99.8 fL (80.0-100.0); Monocytes # (auto) 0.7 10 ^3/uL (0-1.3); Monocytes % (auto) 10.3 % (0.0-12.0); Neutrophils # (auto) 5.4 10 ^3/uL (1.6-8.6); Neutrophils % (auto) 74.5 % (37.0-80.0); Nucleated Red Blood Cells % 0.2 %; Platelet Count (auto) 157 10^3/uL (140-450); Red Blood Cells 5.19 10^6/uL (4.0-5.20); Red Cell Distribution Width 16.3 % (11.8-14.3); White Blood Cell 7.2 10^3/uL (4.4-10.8)
--- NOTE | 2024-06-22 21:05 | DVH ---
CHEST RADIOGRAPH Indication: sob Technique: Single frontal view of the chest was obtained Comparison: XY CHEST PORTABLE on DOS: 06/02/24, XY CHEST PORTABLE on DOS: 05/29/24, XY CHEST PORTABLE o n DOS: 05/28/24 FINDINGS: Lungs are well expanded and there are no infiltrates or effusions. Heart is borderline size. Patient May have a calcified mitral annulus. Peripheral markings are suggestive chronic lung disease. IMPRESSION: 1. Borderline heart size with possibly calcified mitral annulus. Lungs have an appearance suggesting chronic lung disease.Follow-up CT Examination of the chest may be helpful. No acute findings 1.
--- NOTE | 2024-06-22 22:06 | DVHHPRES ---
History of Present Illness Resident Creating Document: HAILEY SIMS RESDIENT History of Present Illness This is an 83-year-old female with past medical history of coronary artery disease (status post 11 stents), CHF, aortic stenosis status post TAVR, COPD (on 4 L of oxygen at home), DM, dyslipidemia, hypertension, paroxysmal atrial fibrillation, pulmonary hypertension brought to the hospital due to altered level of consciousness. Patient was recently discharge from [facility] (discharged on 06/07/2024, had admitted due to pneumonia and atrial fibrillation with RVR), the patient was placed at SNF for physical therapy, and was discharged to home from SNF 3 days back. Per patient's son, since discharge from [facility] the patient was altered but has progressively worsened. Patient also had shortness of breath, cough, and decreased oral intake. Serum PMHx: coronary artery disease (status post 11 stents), CHF, aortic stenosis status post TAVR, COPD (on 4 L of oxygen at home), DM, dyslipidemia, hypertension, paroxysmal atrial fibrillation, pulmonary hypertension PSHx: Hysterectomy, tonsillectomy, aortic valve replacement, cataract surgery, Social history: Patient lives with the son at home (3 days back transferred to home from [facility]), uses walker at baseline for mobility, due to urinary incontinence uses diaper (but since last hospital admission she also has stool incontinence), current smoker (9 pack year history) denies any other drug use Home medication: Amiodarone, amlodipine, aspirin, atorvastatin, clopidogrel, furosemide, gabapentin, hydrocodone/acetaminophen, metformin, metoprolol, oxybutynin. Due to paroxysmal AFib, during last admission the patient and patient's son's were consulted for anticoagulant usage, but it was refused due to bleeding risk. Allergic history: No known allergies Review of Systems Review of Systems General: patient denies fever, fatigue, weaknes, sweating, any recent changes in appetite and weight HEENT: No headaches, visiual changes, hearing loss, tinnitus, nasal congestion and discharge, and sore throat. Cardiovascular: Denies chest pain, palpitations, dyspnea on exertion, orthopnea, or claudication. Respiratory: Reports cough and shortness of breaths Gastrointestinal: Denies nausea, vomiting, dysphagia, odynophagia, heartburn, abdominal pain, flatulence, bloating, diarrhea, constipation, change in stool, or blood in stool. Genitourinary: No dysuria, hematuria, discharge, frequency, urgency, nocturia, incontinence, and urinary retention. Endocrine: No heat or cold intolerance, polydipsia, polyuria, and polyphagia. Neurological: Altered mental status Psychiatric: Denies depression, anxiety,or insomnia. Musculoskeletal: Denies neck pain, stiffness and swelling, back pain, muscle weakness, joint pain, stiffness, swelling, or limited range of motion. Skin: No rashes, itching, skin lesion, changes in hair, nail, skin texture and breast. Hematologic/Lymphatic: Denies easy bruising, bleeding tendencies, or lymph node enlargement. Allergies: Coded Allergies: NO KNOWN ALLERGIES (Unverified , 10/07/22) Exam Vital Signs Vital Signs Date Time Temp Pulse Resp B/P (MAP) Pulse Ox O2 Delivery O2 Flow Rate FiO2 06/22/24 19:19 52 06/22/24 19:08 90 Nasal Cannula* 4 36 06/22/24 19:03 98.5 24 121/62 (81) Exam General Appearance: Alert, Oriented to person, disoriented to time and place HEENT: Atraumatic, PERRLA, EOMI, Mucous membrane moist/pink Respiratory: Bilateral lower zone crackles Cardiovascular: Regular rate, Normal S1, Normal S2, No murmurs, no chest wall tenderness Abdominal: Normal bowel sounds, Soft, No tenderness, No hepatospenomegaly, No masses Extremities: Grade 1 bilateral pedal edema Skin: Bilateral lower limb rashes with scaling from ankle to mid macdonald Neuro: Normal gait, Normal speech, Strength at 5/5 X4 ext, Normal tone, Sensation intact, Cranial nerves 3-12 NL, Reflexes 2+ Psych/Mental Status: Mental status NL, Mood NL Labs/Xrays Labs Test 06/22/24 20:04 Range/Units White Blood Count 7.2 4.4-10.8 10^3/uL Red Blood Count 5.19 4.0-5.20 10^6/uL Hemoglobin 15.8 12.2-16.2 g/dL Hematocrit 51.8 H 36.0-46.0 % Mean Corpuscular Volume 99.8 80.0-100.0 fL Mean Corpuscular Hemoglobin 30.6 28.0-32.0 pg Mean Corpuscular Hemoglobin Concent 30.6 L 32.0-36.0 g/dL Red Cell Distribution Width 16.3 H 11.8-14.3 % Platelet Count 157 140-450 10^3/uL Mean Platelet Volume 8.4 6.9-10.8 fL Neutrophils (%) (Auto) 74.5 37.0-80.0 % Lymphocytes (%) (Auto) 12.6 10.0-50.0 % Monocytes (%) (Auto) 10.3 0.0-12.0 % Eosinophils (%) (Auto) 2.1 0.0-7.0 % Basophils (%) (Auto) 0.5 0.0-2.0 % Neutrophils # (Auto) 5.4 1.6-8.6 10 ^3/uL Lymphocytes # (Auto) 0.9 0.4-5.4 10 ^3/uL Monocytes # (Auto) 0.7 0-1.3 10 ^3/uL Eosinophils # (Auto) 0.2 0-0.8 10 ^3/uL Basophils # (Auto) 0 0-0.2 10 ^3/uL Nucleated Red Blood Cells 0.2 % Troponin I High Sensitivity 32 </=34 ng/L Assessment/Plan Assessment/Plan Acute metabolic encephalopathy, likely due to sepsis Acute on chronic hypoxic respiratory failure, likely due to COPD exacerbation NSTEMI, likely type [address] scan shows atrophic changes chest x-ray shows chronic lung disease Empiric antibiotic Azithromycin and ceftriaxone Oxygen through nasal cannula Breathing treatment Solu-Medrol Fluid CHIKA, likely due to VAN IV fluid next History of coronary artery disease History of CHF History of DM, Hb A1c was 6.0 on 05/29/2024 History of dyslipidemia History of hypertension History of aortic stenosis, status post TAVR 10 DIET: Cardiac diet DVT PROPHYLAXIS: Lovenox CODE STATUS: Goal of care discussed for more than 21 minutes, full code DISPOSITION: Med/surg Patient's status and paln discussed with the patient and the patient's sons at the bedside Case discussed with Dr. Gallegos. Plan discussed with: Patient, Son, Other (RN) My Orders Orders - HAILEY SIMS RESDIJER Procedure Category Date Status Time Admit ADMIT 06/22/24 Verified 22:04 Oxygen By Nasal RT 06/22/24 Verified Cannula 22:04 Stat Ekg For Chest LIDIA 06/22/24 Verified Pain 22:04 Date of Service: Jun 22, 2024 Billing Provider: EVY GALLEGOS MD Common Visit Codes: [id number] INP/OBS CARE (HIGH) Secondary Visit Codes: [id number] CARE PLAN 30 MINUTES HAILEY SIMS Jun 22, 2024 22:05 EVY GALLEGOS MD Jun 23, 2024 17:28
[2024-06-22 22:43] LABS: Chloride 104 mmol/L (98-107); Potassium 4.6 mmol/L (3.5-5.1); Sodium 141 mmol/L (136-145)
[2024-06-22 22:44] LABS: Anion Gap 10 (5-15); Calcium 9.3 mg/dL (8.7-10.4); Carbon Dioxide 27 mmol/L (20-31)
[2024-06-22 22:49] LABS: BUN/Creatinine Ratio 21.7 (10.0-20.0); Glucose 100 mg/dL (74-106); Lactic Acid w/Reflex 2.6 mmol/L (0.4-2.0)
[2024-06-22 22:50] LABS: Blood Urea Nitrogen 33 mg/dL (9-23)
[2024-06-22 23:04] VITALS: O2SAT 94
[2024-06-22 23:19] VITALS: BP 121/62; PULSE 59; RESP 20; TEMP 98.5; O2SAT 94
[2024-06-23] VITALS (12 sets, daily range): BP systolic 134; BP diastolic 72; PULSE 53–85; RESP 14–20; TEMP 97.9; O2SAT 95–99
[2024-06-23 00:10] LABS: Base Excess 3.5 mmol/L (-2.0-3.0)
[2024-06-23 00:19] LABS: Albumin 3.9 g/dL (3.2-4.8); Total Protein 6.1 g/dL (5.7-8.2)
[2024-06-23 00:20] LABS: Bilirubin, Direct 0.2 mg/dL (<0.3); Bilirubin, Total 0.6 mg/dL (0.2-1.0)
--- NOTE | 2024-06-23 00:58 | DVH ---
CT HEAD WITHOUT CONTRAST INDICATION: ALOC COMPARISON: CT HEAD WITHOUT CONTRAST on DOS: 05/28/24, CT HEAD WITHOUT CONTRAST on DOS: 03/28/23, CT H EAD WITHOUT CONTRAST on DOS: 10/07/22 TECHNIQUE: CT of the head without intravenous contrast. RADIATION DOSE: CTDIvol: 58.6 mGy, DLP: 1056.49 mGy*cm FINDINGS: There is no evidence of intracranial hemorrhage, infract, extra-axial collection, mass effect, midl ine shift, herniation or hydrocephalus. Mild ventricular enlargement related to mild cerebral volume loss. Chronic white matter microvascular ischemic changes. Visualized paranasal sinuses and mastoid a ir cells are clear. Soft tissues and osseous structures are unremarkable. IMPRESSION: No acute intracranial abnormality identified. Chronic microvascular ischemic changes and cerebral vol ume loss. No significant change compared to the prior CT scan from 05/28/2024.
[2024-06-23] MEDS: SODIUM CHLORIDE 0.9% 1,000 ML IV ONE ×3 (01:31→15:56)
[2024-06-23] MEDS: methylPREDNISolone SOD SUCC 125 MG/2 ML VL IV ONE (01:35)
[2024-06-23] MEDS: ENOXAPARIN SOD 40 MG/0.4 ML SYRINGE SC ONE (01:35)
[2024-06-23] MEDS: cefTRIAXone 1GM/50ML D5W 50 ML IV ONE (01:35)
[2024-06-23] MEDS: PIPERACILLIN-TAZOB 2.25GM 50 ML IV ONE (03:15)
[2024-06-23 03:28] LABS: COVID19 ANTIGEN SOFIA FIA NEGATIVE (NEGATIVE); Rapid Influenza A Negative (Negative); Rapid Influenza B Negative (Negative)
[2024-06-23] MEDS: ALBUTEROL SULF 2.5 MG/0.5ML(0.5%) NEB SOLN NEB SCH (06:13)
[2024-06-23] MEDS: IPRATROPIUM BROM 0.5 MG/2.5ML INH SOL NEB SCH (06:13)
--- NOTE | 2024-06-23 07:16 | ECG ---
[facility] Test Date: 2024-06-23 Test Time: 00:33:13 Pat Name: DUANE ROSEN Department: ED Room: 0295 Gender: F Commercial Singer: ALLAN : 1940 Requested By: ROBERTO KING Order Number: [id number] Reading MD: Christopher Castrejon Measurements Intervals [place] Rate: 60 P: 0 DE: 63 QRS: 109 QRSD: 120 T: -57 QT: 483 QTc: 483 Interpretive Statements Sinus rhythm with artifacts Short DE interval RBBB and LPFB Anterolateral infarct, age indeterminate Abnormal T, consider ischemia, lateral leads Minimal ST elevation, inferior leads Artifact in lead(s) I,III,aVR,aVL,aVF,V2,V3,V4,V6 Electronically Signed On 06-27-2024 18:39:40 PDT by Christopher Castrejon Please click the below link to view image of tracing.
[2024-06-23 08:00] LABS: Basophils # (auto) 0 10 ^3/uL (0-0.2); Basophils % (auto) 0.2 % (0.0-2.0); Eosinophils # (auto) 0 10 ^3/uL (0-0.8); Eosinophils % (auto) 0.2 % (0.0-7.0); Hemoglobin 14.2 g/dL (12.2-16.2); Lymphocytes # (auto) 0.3 10 ^3/uL (0.4-5.4); Lymphocytes % (auto) 5.8 % (10.0-50.0); Mean Corpuscular Hemoglobin 30.6 pg (28.0-32.0); Mean Corpuscular Hgb Conc. 32.4 g/dL (32.0-36.0); Mean Corpuscular Volume 94.6 fL (80.0-100.0); Monocytes # (auto) 0.1 10 ^3/uL (0-1.3); Monocytes % (auto) 1.7 % (0.0-12.0); Neutrophils # (auto) 5.4 10 ^3/uL (1.6-8.6); Neutrophils % (auto) 92.1 % (37.0-80.0); Platelet Count (auto) 117 10^3/uL (140-450); Red Blood Cells 4.65 10^6/uL (4.0-5.20); Red Cell Distribution Width 15.5 % (11.8-14.3); White Blood Cell 5.8 10^3/uL (4.4-10.8)
[2024-06-23 08:14] LABS: INR 1.18 (0.9-1.15); Partial Thromboplastin Time 31.3 SEC (24.5-34.5); Prothrombin Time 12.3 sec (9.3-11.8)
[2024-06-23 09:07] LABS: Anion Gap 8 (5-15); BUN/Creatinine Ratio 20.6 (10.0-20.0)
[2024-06-23 09:09] LABS: Alanine Aminotransferase 21 U/L (7-40); Albumin 3.5 g/dL (3.2-4.8); Alkaline Phosphatase 68 U/L (46-116); Aspartate Aminotransferase 22 U/L (13-40); Bilirubin, Total 0.5 mg/dL (0.2-1.0); Blood Urea Nitrogen 32 mg/dL (9-23); Calcium 8.9 mg/dL (8.7-10.4); Carbon Dioxide 28 mmol/L (20-31); Chloride 107 mmol/L (98-107); Glucose 203 mg/dL (74-106); Potassium 4.8 mmol/L (3.5-5.1); Sodium 143 mmol/L (136-145); Total Protein 5.4 g/dL (5.7-8.2)
[2024-06-23 09:16] LABS: Urine Bacteria None Seen /hpf (None Seen)
[2024-06-23 09:45] LABS: Urine Blood Negative /uL (Negative); Urine Budding Yeast OCCASIONAL /hpf (None Seen); Urine Clarity Turbid (Clear); Urine Color Yellow (Yellow); Urine Protein, UAD TRACE (Negative); Urine Specific Gravity 1.019 (1.001-1.035); Urine Squamous Epithelial Cell FEW /hpf (<5); Urine Urobilinogen Normal (Negative); Urine WBC 6 /HPF (0-5); Urine pH 5.5 (5.0-9.0)
[2024-06-23 09:54] LABS: Opiate Scree,Urine Neg (NEGATIVE)
[2024-06-23] MEDS: AZITHROMYCIN 500MG/ 250ML 250 ML IV SCH (10:00)
[2024-06-23] MEDS ORDERED: GABAPENTIN 400 MG CAP PO SCH (10:00)
[2024-06-23] MEDS ORDERED: PIPERACILLIN-TAZOB 2.25GM 50 ML IV SCH (10:00)
[2024-06-23 10:02] LABS: Amphetamine Screen, Urine Neg (NEGATIVE); Barbiturate Scree,Urine Neg (NEGATIVE); Benzodiazephine Screen, Urine Neg (NEGATIVE); Cannabinoid Screen, Urine Neg (NEGATIVE); Cocaine Screen, Urine Neg (NEGATIVE); Phencyclidine Screen, Urine Neg (NEGATIVE)
[2024-06-23] MEDS: ATORVASTATIN 20 MG TAB PO SCH (10:42)
[2024-06-23] MEDS: AMIODARONE HCL 200 MG TAB PO SCH (10:42)
[2024-06-23] MEDS: ASPirin-EC 81 mg tab PO SCH (10:43)
[2024-06-23] MEDS: ENOXAPARIN SOD 40 MG/0.4 ML SYRINGE SC SCH (10:43)
[2024-06-23] MEDS: CLOPIDOGREL BISULFATE 75 MG TAB PO SCH (10:44)
[2024-06-23] MEDS: SODIUM CHLORIDE 0.9% 500 ML IV ONE (11:31)
[2024-06-23] MEDS: GABAPENTIN 300 MG CAP PO ONE (11:41)
[2024-06-23] MEDS: GABAPENTIN 400 MG CAP PO ONE (11:45)
--- NOTE | 2024-06-23 14:17 | DVHPNRES ---
Progress Note Date Seen: Jun 23, 2024 Resident Creating Document: ANTIONE SWANSON RESIDENT Medical Necessity Reason Pt with a Central, PICC or Fol: Yes The following are medically ne: العراقي Catheter Subjective Review of Systems This is an 83-year-old female who was brought to the ED with chief complain of altered mental status. PMHx: coronary artery disease (status post 11 stents), CHF EF 40%, aortic stenosis status post TAVR, COPD (on 4 L of oxygen at home), DM, dyslipidemia, hypertension, paroxysmal atrial fibrillation, pulmonary hypertension PSHx: Hysterectomy, tonsillectomy, aortic valve replacement, cataract surgery, Social history: Patient lives with the son at home, uses walker at baseline for mobility, current smoker (9 pack year history) denies any other drug use Home medication: Amiodarone, amlodipine, aspirin, atorvastatin, clopidogrel, furosemide, gabapentin, hydrocodone/acetaminophen, metformin, metoprolol, oxybutynin. Due to paroxysmal AFib, during last admission the patient and patient's son's were consulted for anticoagulant usage, but it was refused due to bleeding risk. Allergic history: No known allergies Patient was recently discharge from [facility] (on 06/07/2024, had admitted due to pneumonia and atrial fibrillation with RVR), the patient was placed at SNF for physical therapy, and was discharged to home from SNF 3 days ago. Per patient's son, since discharge from SNF the patient has been altered and has progressively worsened. Patient also had shortness of breath, cough, and decreased oral intake. In the ED, patient underwent workup for possible sepsis, lactic acid was elevated at 2.4, she was tachypneic, blood pressure was stable, she was placed on nasal cannula 4 L, heart rate was fluctuating between 70s to 50s. She underwent a chest x-ray which revealed chronic lung changes, no signs of consolidation, a head CT was also unremarkable. Patient was started on broad- spectrum antibiotics with Rocephin, azithromycin. She was also started on DuoNebs. Patient was noted to have an CHIKA, she was started on IV fluids as well. On my assessment, patient appeared agitated, she was alert and oriented x2, she stated that she was feeling better than on admission. Denied any chest pain, dizziness, lightheadedness, abdominal pain, significant shortness of breath. Objective vital signs Vital Sign Date Time Temp Pulse Resp B/P (MAP) Pulse Ox O2 Delivery O2 Flow Rate FiO2 06/23/24 12:00 62 06/23/24 12:00 14 155/68 (97) 96 06/23/24 11:00 97.3 97.3 06/23/24 09:58 Nasal Cannula* 2 28 Total Intake and Output 06/22/24 06/22/24 06/23/24 15:00 23:00 07:00 Intake Total 1600 ml Balance 1600 ml medications Current Medications Medications Dose Ordered Sig/Keith Route Start Time Stop Time Status Last Admin Dose Admin Albuterol 2.5 mg Q4HWA NEB 06/23/24 06:00 06/23/24 09:59 2.5 MG Ipratropium [place] 0.5 mg Q4HWA NEB 06/23/24 06:00 06/23/24 09:59 0.5 MG Enoxaparin Sodium 40 mg DAILY SC 06/23/24 10:00 06/23/24 10:43 40 MG Amiodarone HCl 200 mg DAILY PO 06/23/24 10:00 06/23/24 10:42 200 MG Aspirin 81 mg DAILY PO 06/23/24 10:00 06/23/24 10:43 81 MG Atorvastatin Calcium 20 mg DAILY PO 06/23/24 10:00 06/23/24 10:42 20 MG Clopidogrel Bisulfate 75 mg DAILY PO 06/23/24 10:00 06/23/24 10:44 75 MG Azithromycin 250 ml @ 125 mls/hr DAILY IV 06/23/24 10:00 06/23/24 10:00 125 MLS/HR Ceftriaxone Sodium 50 ml @ 100 mls/hr Q24H IV 06/24/24 02:00 Gabapentin 400 mg DAILY PO 06/24/24 10:00 Examination General: Awake, alert, in moderate distress with agitation, A and O x2 HEENT: Head is normocephalic and atraumatic. Pupils are equal, round, and reactive to light. Neck: Supple with no cervical lymphadenopathy No meningismus. No goiter. Heart: Irregular rate without murmur, rub, or gallop. Lungs: Scattered crackles Abdomen: No external sign of injury. Bowel sounds are present. Abdomen is soft, nontender. No rebound, no guarding, no rigidity. There are no palpable masses. There is no flank pain on exam. Extremities: Strong peripheral pulses. There is no clubbing, no cyanosis, and no edema. Skin: No rash. Dry skin Neurologic: Cranial nerves II-XII intact without motor, sensory. laboratory and microbiology Laboratory Tests 06/23/24 07:47 Test 06/23/24 07:47 Range/Units Serum Glucose 203 H 74-106 mg/dL Labs and/or images reviewed: Labs reviewed by me, Image(s) reviewed by me Problem List/Assessment/Plan Problem List/Assessment/Plan #Acute metabolic encephalopathy, likely due to UTI #Lactic acidosis, resolved #Acute on chronic hypoxic respiratory failure #NSTEMI, likely type [address] scan shows atrophic changes chest x-ray shows chronic lung disease Continue Empiric antibiotic Azithromycin and ceftriaxone DuoNebs prn Continue IVF Pending urine cx, blood cx #CHIKA, likely due to VMN, prerenal Continue IVF #Sacral ulcer stage 1 patient walks with walker frequent change of positions by nurse staff #History of coronary artery disease x11 stents #History of CHF diastolic/systolic #Paroxysmal Afib, on amiodarone, refused therapeutic blood thinner #T2DM, Hb A1c was 6.0 on 05/29/2024 #Dyslipidemia #Hypertension, stable #Aortic stenosis, status post TAVR DIET: Cardiac diet DVT ppx: Lovenox Goals of care were discussed for 30 minutes. Full code. We updated patient's son on current mother status, had a discussion about hospice, he will discuss with siblings and we will have a meeting tomorrow. Case discussed with Dr. Gallegos. Plan discussed with: Patient My Orders My Orders Orders - ANTIONE SWANSON RESIDENT Procedure Category Date Status Time العراقي Catheters ED NURSING 06/23/24 Transmitted Date of Service: Jun 23, 2024 Billing Provider: EVY GALLEGOS MD Common Visit Codes: [id number] INP/OBS CARE(HIGH) ANTIONE SWANSON RESIDENT Jun 23, 2024 14:17 EVY GALLEGOS MD Jun 23, 2024 18:57
[2024-06-23] MEDS: CYANOCOBALAMIN (B-12) 1000 MCG/1 ML VIAL IM ONE (15:14)
[2024-06-23] MEDS: HYDROcodone-ACET 7.5/325MG TAB PO ONE (22:16)
[2024-06-24] VITALS (17 sets, daily range): BP systolic 107–149; BP diastolic 50–72; PULSE 60–85; RESP 16–19; TEMP 97.7–98.7; O2SAT 95–100
[2024-06-24] MEDS: cefTRIAXone 1GM/50ML D5W 50 ML IV SCH (03:06)
[2024-06-24 07:41] LABS: Basophils # (auto) 0 10 ^3/uL (0-0.2); Basophils % (auto) 0.1 % (0.0-2.0); Eosinophils # (auto) 0 10 ^3/uL (0-0.8); Eosinophils % (auto) 0.1 % (0.0-7.0); Hematocrit 37.8 % (36.0-46.0); Hemoglobin 12.8 g/dL (12.2-16.2); Lymphocytes # (auto) 0.7 10 ^3/uL (0.4-5.4); Lymphocytes % (auto) 9.6 % (10.0-50.0); Mean Corpuscular Hemoglobin 31.5 pg (28.0-32.0); Mean Corpuscular Hgb Conc. 33.9 g/dL (32.0-36.0); Mean Corpuscular Volume 92.9 fL (80.0-100.0); Monocytes # (auto) 0.6 10 ^3/uL (0-1.3); Monocytes % (auto) 7.9 % (0.0-12.0); Neutrophils # (auto) 5.9 10 ^3/uL (1.6-8.6); Neutrophils % (auto) 82.3 % (37.0-80.0); Platelet Count (auto) 128 10^3/uL (140-450); Red Blood Cells 4.07 10^6/uL (4.0-5.20); Red Cell Distribution Width 15.3 % (11.8-14.3); White Blood Cell 7.1 10^3/uL (4.4-10.8)
[2024-06-24 07:50] LABS: Alanine Aminotransferase 16 U/L (7-40); Albumin 3.4 g/dL (3.2-4.8); Alkaline Phosphatase 59 U/L (46-116); Anion Gap 6 (5-15); Aspartate Aminotransferase 16 U/L (13-40); Bilirubin, Total 0.4 mg/dL (0.2-1.0); Blood Urea Nitrogen 20 mg/dL (9-23); Calcium 9.3 mg/dL (8.7-10.4); Carbon Dioxide 31 mmol/L (20-31); Chloride 106 mmol/L (98-107); Potassium 4.3 mmol/L (3.5-5.1); Sodium 143 mmol/L (136-145)
[2024-06-24 07:53] LABS: Glucose 125 mg/dL (74-106); Total Protein 5.3 g/dL (5.7-8.2)
[2024-06-24] MEDS ORDERED: GABAPENTIN 300 MG CAP PO SCH (10:00)
[2024-06-24] MEDS: GABAPENTIN 400 MG CAP PO SCH (10:30)
[2024-06-24] MEDS: CYANOCOBALAMIN 500 MCG TAB PO SCH (10:31)
[2024-06-24] MEDS ORDERED: AZIT-43 PO (13:47)
[2024-06-24] MEDS ORDERED: CYAN500T3 PO (13:47)
[2024-06-24] MEDS ORDERED: CEFP200T15 PO (13:47)
--- NOTE | 2024-06-24 14:45 | DVHDSRES ---
Discharge Summary Date of Admission Resident Creating Document: ANTIONE SWANSON RESIDENT Jun 22, 2024 at 22:04 Date of Discharge: Jun 24, 2024 Admitting Diagnosis Metabolic encephalopathy due to UTI Wounds: sacral ulcer stage 1 POA Labs/Diagnostic Data: Laboratory Results Test 06/24/24 07:05 06/23/24 10:23 06/23/24 09:00 06/23/24 07:47 White Blood Count 7.1 10^3/uL (4.4-10.8) Red Blood Count 4.07 10^6/uL (4.0-5.20) Hemoglobin 12.8 g/dL (12.2-16.2) Hematocrit 37.8 % (36.0-46.0) Mean Corpuscular Volume 92.9 fL (80.0-100.0) Mean Corpuscular Hemoglobin 31.5 pg (28.0-32.0) Mean Corpuscular Hemoglobin Concent 33.9 g/dL (32.0-36.0) Red Cell Distribution Width 15.3 % (11.8-14.3) Platelet Count 128 10^3/uL (140-450) Mean Platelet Volume 8.5 fL (6.9-10.8) Neutrophils (%) (Auto) 82.3 % (37.0-80.0) Lymphocytes (%) (Auto) 9.6 % (10.0-50.0) Monocytes (%) (Auto) 7.9 % (0.0-12.0) Eosinophils (%) (Auto) 0.1 % (0.0-7.0) Basophils (%) (Auto) 0.1 % (0.0-2.0) Neutrophils # (Auto) 5.9 10 ^3/uL (1.6-8.6) Lymphocytes # (Auto) 0.7 10 ^3/uL (0.4-5.4) Monocytes # (Auto) 0.6 10 ^3/uL (0-1.3) Eosinophils # (Auto) 0 10 ^3/uL (0-0.8) Basophils # (Auto) 0 10 ^3/uL (0-0.2) Nucleated Red Blood Cells 0.0 % Sodium Level 143 mmol/L (136-145) Potassium Level 4.3 mmol/L (3.5-5.1) Chloride Level 106 mmol/L (98-107) Carbon Dioxide Level 31 mmol/L (20-31) Anion Gap 6 (5-15) Blood Urea Nitrogen 20 mg/dL (9-23) Creatinine 1.11 mg/dL (0.550-1.02) Glomerular Filtration Rate Calc 49 mL/min (>90) BUN/Creatinine Ratio 18.0 (10.0-20.0) Serum Glucose 125 mg/dL (74-106) Calcium Level 9.3 mg/dL (8.7-10.4) Total Bilirubin 0.4 mg/dL (0.2-1.0) Aspartate Amino Transferase (AST) 16 U/L (13-40) Alanine Aminotransferase (ALT) 16 U/L (7-40) Alkaline Phosphatase 59 U/L (46-116) Total Protein 5.3 g/dL (5.7-8.2) Albumin 3.4 g/dL (3.2-4.8) Ammonia 35 umol/L (11-32) Troponin I High Sensitivity 22 ng/L (</=34) Urine Color Yellow (Yellow) Urine Clarity Turbid (Clear) Urine pH 5.5 (5.0-9.0) Urine Specific [place] 1.019 (1.001-1.035) Urine Protein Trace (Negative) Urine Ketones Negative (Negative) Urine Blood Negative /uL (Negative) Urine Nitrite Negative (Negative) Urine Bilirubin Negative (Negative) Urine Urobilinogen Normal mg/dL (Negative) Urine Leukocyte Esterase Trace /uL (Negative) Urine RBC 3 /hpf (0 - 4) Urine Microscopic WBC 6 /HPF (0-5) Urine Squamous Epithelial Cells Few /hpf (<5) Urine Bacteria None seen /hpf (None Seen) Urine Yeast (Budding) Occasional /hpf (None Urine Glucose Normal mg/dL (Normal) Urine Opiates Screen Neg (NEGATIVE) Urine Fentanyl Screen Neg (NEGATIVE) Urine Barbiturates Screen Neg (NEGATIVE) Urine Phencyclidine Screen Neg (NEGATIVE) Urine Amphetamines Screen Neg (NEGATIVE) Urine Benzodiazepines Screen Neg (NEGATIVE) Urine Cocaine Screen Neg (NEGATIVE) Urine Cannabinoids Screen Neg (NEGATIVE) Prothrombin Time 12.3 sec (9.3-11.8) Prothrombin Time INR 1.18 (0.9-1.15) Activated Partial Thromboplast Time 31.3 SEC (24.5-34.5) Lactic Acid Level 1.3 mmol/L (0.4-2.0) Vitamin B12 Level 432 pg/mL (211-911) Thyroid Stimulating Hormone (TSH) 1.06 uIU/mL (0.55-4.78) Test 06/23/24 02:15 06/22/24 23:56 06/22/24 22:10 Influenza Type A Antigen Negative (Negative) Influenza Type B Antigen Negative (Negative) SARS-CoV-2 Antigen (Rapid) Negative (NEGATIVE) Blood Gas Specimen Type Arterial Blood Gas Sample Site Left radial Blood Gas Patient Temperature 37.0 Arterial Blood Date Drawn [id number] Arterial Blood pH 7.445 (7.350-7.450) Arterial Blood Partial Pressure CO2 41.6 mmHg (32.0-45.0) Arterial Blood Partial Pressure O2 115.1 mmHg (83.0-108.0) Arterial Blood HCO3 27.9 mmol/L (21.0-28.0) Arterial Blood Oxygen Saturation 98.4 % (94.0-98.0) Arterial Blood Base Excess 3.5 mmol/L (-2.0-3.0) Arterial Blood Oxyhemoglobin 96.5 % (94.0-98.0) Arterial Blood Carboxyhemoglobin 1.4 % (0.5-1.5) Arterial Blood Methemoglobin 0.5 % (0.0-1.5) Glenn Test Modified Blood Gas Total Hemoglobin 15.30 g/dL (12.0-16.0) Blood Gas Liter Flow 4.00 Blood Gas Modality Nasal cannula FiO2 % 36.0 Magnesium Level 1.6 mg/dL (1.6-2.6) Direct Bilirubin 0.2 mg/dL (<0.3) B-Type Natriuretic Peptide 1864.92 pg/mL (0-100) Other Laboratory Tests 06/24/24 07:05 Brief Hx & Hospital Course: This is an 83-year-old female who was brought to the ED with chief complain of altered mental status. PMHx: coronary artery disease (status post 11 stents), CHF EF 40%, aortic stenosis status post TAVR, COPD (on 4 L of oxygen at home), DM, dyslipidemia, hypertension, paroxysmal atrial fibrillation, pulmonary hypertension PSHx: Hysterectomy, tonsillectomy, aortic valve replacement, cataract surgery, Social history: Patient lives with the son at home, uses walker at baseline for mobility, current smoker (9 pack year history) denies any other drug use Home medication: Amiodarone, amlodipine, aspirin, atorvastatin, clopidogrel, furosemide, gabapentin, hydrocodone/acetaminophen, metformin, metoprolol, oxybutynin. Due to paroxysmal AFib, during last admission the patient and patient's son's were consulted for anticoagulant usage, but it was refused due to bleeding risk. Allergic history: No known allergies Patient was recently discharge from [facility] (on 06/07/2024, had admitted due to pneumonia and atrial fibrillation with RVR), the patient was placed at SNF for physical therapy, and was discharged to home from SNF 3 days ago. Per patient's son, since discharge from SNF the patient has been altered and has progressively worsened. Patient also had shortness of breath, cough, and decreased oral intake. In the ED, patient underwent workup for possible sepsis, lactic acid was elevated at 2.4, she was tachypneic, blood pressure was stable, she was placed on nasal cannula 4 L, heart rate was fluctuating between 70s to 50s. She underwent a chest x-ray which revealed chronic lung changes, no signs of consolidation, a head CT was also unremarkable. Patient was started on broad- spectrum antibiotics with Rocephin, azithromycin. She was also started on DuoNebs. Patient was noted to have an CHIKA, she was started on IV fluids as well. On my assessment, patient appeared agitated, she was alert and oriented x2, she stated that she was feeling better than on admission. Denied any chest pain, dizziness, lightheadedness, abdominal pain, significant shortness of breath. Patient was initially admitted for metabolic encephalopathy likely related to UTI and dehydration, patient was initially treated with broad-spectrum antibiotics, IV fluids. Blood culture came back negative, and urine culture resulted positive for bacterial and fungal infection. Patient continued on IV antibiotics and IV fluids. She had significant clinical improvement from admission, she was alert and oriented x4, she denied any significant shortness of breath, chest pain, abdominal pain, nausea, vomiting, dizziness, lightheadedness. She was tolerating diet, she walked with physical therapy. We had a lengthy discussion with both sons in regards to evaluation for hospice, both of them decided to think about it, they will talk about it with the primary care provider. General: Awake, alert, comfortable appearing, in no acute distress. HEENT: Head is normocephalic and atraumatic. Pupils are equal, round, and reactive to light. Neck: Supple with no cervical lymphadenopathy Heart: Regular rate without murmur, rub, or gallop. Lungs: Equal breath sounds bilaterally with no wheezing, rales, or rhonchi. There is no chest wall tenderness or instability. Abdomen: No external sign of injury. Bowel sounds are present. Abdomen is soft, nontender. No rebound, no guarding, no rigidity. There are no palpable masses. There is no flank pain on exam. Extremities: Strong peripheral pulses. There is no clubbing, no cyanosis, and no edema. Skin: No rash. Neurologic: Cranial nerves II-XII intact without motor, sensory Patient will be discharged home on continue home medications as prescribed. She will continue taking antibiotic such as cefpodoxime, she will also continue with Diflucan, patient will be arranged follow up with the discharge clinic with Dr. Quezada in the afternoon. We discussed the discharge planning with both sounds on the patient, they agree on the DC plan, we spent over 30 minute explained the plan. Case was discussed with Dr. Gallegos. Operations or Procedures [place] [address] Ph: [phone] DIAGNOSTIC IMAGING Diagnostic Imaging Report : [id number] Signed PATIENT: DUANE ROSEN ACCT: [id number] UNIT: [id number] : 1940 LOC: ER ROOM / BED: / AGE / SEX: 83 / F ADM STATUS: REG ER SERVICE 11 ORDERING PHYSICIAN: DARELL COREY MD PROCEDURE(s): CXRP - CHEST PORTABLE REASON: sob ORDER NUMBER(s): [id number], ACCESSION NUMBER(s): [id number] CHEST RADIOGRAPH Indication: sob Technique: Single frontal view of the chest was obtained Comparison: XY CHEST PORTABLE on DOS: 06/02/24, XY CHEST PORTABLE on DOS: 05/29/24, XY CHEST PORTABLE on DOS: 05/28/24 FINDINGS: Lungs are well expanded and there are no infiltrates or effusions. Heart is borderline size. Patient May have a calcified mitral annulus. Peripheral markings are suggestive chronic lung disease. IMPRESSION: 1. Borderline heart size with possibly calcified mitral annulus. Lungs have an appearance suggesting chronic lung disease.Follow-up CT Examination of the chest may be helpful. No acute findings 1. ATED BY: ROSALIO FLORES MD DICTATED DATE/TIME: 06/22/242102 SIGNED BY: ROSALIO FLORES MD SIGNED DATE/TIME: 06/22/242102 CC: [place] [address] Ph: [phone] DIAGNOSTIC IMAGING Diagnostic Imaging Report : [id number] Signed PATIENT: DUANE ROSEN ACCT: [id number] UNIT: [id number] : 1940 LOC: OVERFLOW ROOM / BED: [address] [place] [address] / A AGE / SEX: 83 / F ADM STATUS: ADM IN SERVICE 06 ORDERING PHYSICIAN: HAILEY SIMS RESDIJER PROCEDURE(s): HWOCT - HEAD WITHOUT CONTRAST REASON: ALOC ORDER NUMBER(s): [id number], ACCESSION NUMBER(s): [id number] CT HEAD WITHOUT CONTRAST INDICATION: ALOC COMPARISON: CT HEAD WITHOUT CONTRAST on DOS: 05/28/24, CT HEAD WITHOUT CONTRAST on DOS: 03/28/23, CT HEAD WITHOUT CONTRAST on DOS: 10/07/22 TECHNIQUE: CT of the head without intravenous contrast. RADIATION DOSE: CTDIvol: 58.6 mGy, DLP: 1056.49 mGy*cm FINDINGS: There is no evidence of intracranial hemorrhage, infract, extra-axial collection, mass effect, midline shift, herniation or hydrocephalus. Mild ventricular enlargement related to mild cerebral volume loss. Chronic white matter microvascular ischemic changes. Visualized paranasal sinuses and mastoid air cells are clear. Soft tissues and osseous structures are unremarkable. IMPRESSION: No acute intracranial abnormality identified. Chronic microvascular ischemic changes and cerebral volume loss. No significant change compared to the prior CT scan from 05/28/2024. ATED BY: CASEY GORDON MD DICTATED DATE/TIME: 06/23/24 0056 SIGNED BY: CASEY GORDON MD SIGNED DATE/TIME: 06/23/24 0056 CC: EKG Name: DUANE ROSEN Acct: [id number] [place] [address] ELECTROCARDIOGRAM REPORT PATIENT: DUANE ROSEN ACCT: [id number] : 1940 LOC: OVERFLOW ROOM / BED: [facility] / A AGE / SEX: 83 / F ADM STATUS: ADM IN SERVICE UNIT: [id number] ORDERING PHYSICIAN: ROBERTO KING DO PROCEDURE(s): EKG - ELECTROCARDIGRAM ORDER NUMBER(s): [id number], ACCESSION NUMBER(s): [id number] [facility] Test Date: 2024-06-23 Test Time: 00:33:13 Pat Name: DUANE ROSEN Department: ED Room: [address] [place] [address] Gender: F [employer]ro[employer] Architect: ALLAN : 1940 Requested By: ROBERTO KING Order Number: [id number] Reading MD: Measurements Intervals [place] Rate: 60 P: 0 OK: 63 QRS: 109 QRSD: 120 T: -57 QT: 483 QTc: 483 Interpretive Statements Pacemaker spikes or artifacts Sinus rhythm Short OK interval RBBB and LPFB Anterolateral infarct, age indeterminate Abnormal T, consider ischemia, lateral leads Minimal ST elevation, inferior leads Artifact in lead(s) I,III,aVR,aVL,aVF,V2,V3,V4,V6 Please click the below link to view image of tracing. DICTATED BY: DICTATED DATE/TIME:06/23/2432 ELECTRONICALLY SIGNED BY: ELECTRONICALLY CO-SIGNED BY: Condition at Discharge: Guarded Final Diagnosis/Problems List Metabolic encephalopathy due to UTI CHIKA due to VMN Acute on chronic hypoxic respiratory failure #Lactic acidosis, resolved #NSTEMI, likely type 2 #Sacral ulcer stage 1 #History of coronary artery disease x11 stents #History of CHF diastolic/systolic #Paroxysmal Afib, #T2DM #Dyslipidemia #Hypertension, stable #Aortic stenosis, status post TAVR Discharge Disposition: Home Discharge Instruct/Medications Diet: Cardiac 2g Na,low cholest Activity: Light activity Follow Up/Referral: FU with pcp in 1 week Medications: continue meds as prescribed Discharge Statement: "Patient was advised to return to the ER or call 911 if any headaches, dizziness, shortness of breath, chest pain, abdominal pain, bleeding, fevers, or worsening of medical condition. Patient was counseled about treatment plan, medications, possible side effects, patientverbalized understanding. All questions were answered to the best of my ability. This discharge took greater then 30 minutes in planning, reviewing documentation, counseling the patient, and discussing with other team members." ASSESSMENT ASSESSMENT Assessment UTI Date of Service: Jun 24, 2024 Billing Provider: EVY GALLEGOS MD Common Visit Codes: 97939-JXW/OBS DISCH DAY >30min ANTIONE SWANSON RESIDENT Jun 24, 2024 14:45 EVY GALLEGOS MD Jun 25, 2024 11:22
[2024-06-24] MEDS ORDERED: FLUC200T PO (14:52)
== END 2024-06-24 20:15 | disposition home or self-care (01) | DRG 189 ==
LOC: EDBD 19:02 → ER 19:02 → OVERFLOW 22:04 → WEST WING 06-23 23:52
PROVIDERS: ADMIT Internal Medicine; ATTEND Internal Medicine
DX: J96.21 Acute and chronic respiratory failure with hypoxia (principal); G93.41 Metabolic encephalopathy; I21.A1 Myocardial infarction type 2; N17.0 Acute kidney failure with tubular necrosis; N39.0 Urinary tract infection, site not specified; J44.1 Chronic obstructive pulmonary disease with (acute) exacerbation; E87.20 Acidosis, unspecified; I50.42 Chronic combined systolic (congestive) and diastolic (congestive) heart failure; L89.151 Pressure ulcer of sacral region, stage 1; Z20.822 Contact with and (suspected) exposure to COVID-19; E11.9 Type 2 diabetes mellitus without complications; I48.0 Paroxysmal atrial fibrillation; I25.10 Atherosclerotic heart disease of native coronary artery without angina pectoris; I11.0 Hypertensive heart disease with heart failure; F17.210 Nicotine dependence, cigarettes, uncomplicated; E78.5 Hyperlipidemia, unspecified; Z95.2 Presence of prosthetic heart valve; Z90.710 Acquired absence of both cervix and uterus; Z79.82 Long term (current) use of aspirin; Z79.02 Long term (current) use of antithrombotics/antiplatelets; Z79.84 Long term (current) use of oral hypoglycemic drugs; Z79.891 Long term (current) use of opiate analgesic; Z79.899 Other long term (current) drug therapy
CPT/HCPCS: 36415; 36600; 70450; 71045; 80048; 80053; 80076; 80307; 81001; 82140; 82607; 82805; 83605; 83735; 83880; 84443; 84484; 85025; 85610; 85730; 87040; 87081; 87086; 87088; 87186; 87426; 87804; 93005; 94640; 97163; 99291; G0378; J2543

== ENCOUNTER 2024-07-08 21:41 | Inpatient (IN) | payer OTHER ==
[~2024-07-08] VITALS: Ht 167.6 cm; Wt 62.6 kg
[~2024-07-08 21:41] MED LIST changes: +AZIT-43 PO; +CEFP200T15 PO; -CEPH500C PO; +CYAN500T3 PO; +FLUC200T PO
[2024-07-09] VITALS (17 sets, daily range): BP systolic 115–158; BP diastolic 56–83; PULSE 61–85; RESP 12–18; TEMP 97.4–99; O2SAT 90–100
--- NOTE | 2024-07-09 01:26 | ECG ---
[facility] Test Date: 2024-07-09 Test Time: 01:21:51 Pat Name: DUANE ROSEN Department: Room: 0284T B Gender: F Continuity Editor: yousif : 1940 Requested By: HAILEY SIMS Order Number: [id number] Reading MD: Christopher Castrejon Measurements Intervals [place] Rate: 64 P: 79 GA: 195 QRS: 108 QRSD: 108 T: 239 QT: 437 QTc: 451 Interpretive Statements Sinus rhythm Left atrial enlargement Left posterior fascicular block Consider left ventricular hypertrophy Anterior Q waves, possibly due to LVH Nonspecific T abnormalities, lateral leads Baseline wander in lead(s) V6 Electronically Signed On 07-09-2024 13:00:08 PDT by Christopher Castrejon Please click the below link to view image of tracing.
[2024-07-09] MEDS ORDERED: ONDANSETRON HCL 4 MG/2 ML VIAL IV PRN (01:30)
[2024-07-09] MEDS ORDERED: ACETAMINOPHEN 325 MG TAB PO PRN (01:30)
--- NOTE | 2024-07-09 01:31 | DVHHPRES ---
History of Present Illness Resident Creating Document: HAILEY SIMS RESDIENT History of Present Illness This is an 83-year-old female with past medical history of coronary artery disease (status post 11 stents), CHF, aortic stenosis status post TAVR, COPD (on 4 L of oxygen at home), DM, dyslipidemia, hypertension, paroxysmal atrial fibrillation, pulmonary hypertension transfer for [facility], had admitted due to altered mental status. Per patient's son's, she has been altered since few days which has progressively worsened, and today found her next to the bed with possible mechanical fall. He also reports decreased oral intake, and generalized weakness. Per [facility] records, CT scan showed moderate right-sided pleural effusion with right and left lower lobe consolidation possibly due to pneumonia/atelectasis. She was discharged on 06/24/2024 from [facility], had admitted due to encephalopathy second-degree to [facility], since discharge the patient was not feeling good but progressively had worsened. PMHx: coronary artery disease (status post 11 stents), CHF, aortic stenosis status post TAVR, COPD (on 4 L of oxygen at home), DM, dyslipidemia, hypertension, paroxysmal atrial fibrillation, pulmonary hypertension PSHx: Hysterectomy, tonsillectomy, aortic valve replacement, cataract surgery, Social history: Patient lives with the son at home (3 days back transferred to home from [facility]), uses walker at baseline for mobility, due to urinary incontinence uses diaper (but since last hospital admission she also has stool incontinence), current smoker (9 pack year history) denies any other drug use Home medication: Amiodarone, amlodipine, aspirin, atorvastatin, clopidogrel, furosemide, gabapentin, hydrocodone/acetaminophen, metformin, metoprolol, oxybutynin. Due to paroxysmal AFib, during last admission the patient and patient's son's were consulted for anticoagulant usage, but it was refused due to bleeding risk. Allergic history: No known allergies Review of Systems Review of Systems Due to altered mental status of the patient, the patient could not provide proper history. Allergies: Coded Allergies: NO KNOWN ALLERGIES (Unverified , 10/07/22) Exam Vital Signs Vital Signs Date Time Temp Pulse Resp B/P (MAP) Pulse Ox O2 Delivery O2 Flow Rate FiO2 07/09/24 00:26 97.4 68 12 115/64 (81) 90 97.4 Exam General Appearance: Lethargic, GCS 9 HEENT: Atraumatic, PERRLA, EOMI, Mucous membrane moist/pink Respiratory: Bilateral lower zone crackles Cardiovascular: Regular rate, Normal S1, Normal S2, No murmurs, no chest wall tenderness Abdominal: Normal bowel sounds, Soft, No tenderness, No hepatospenomegaly, No masses Extremities: Bilateral lower limb mildly swollen with petechial/purpuric rash Skin: No rashes, No breakdown, No significant lesion Neuro: Normal gait, Normal speech, Strength at 5/5 X4 ext, Normal tone, Sensation intact, Cranial nerves 3-12 NL, Reflexes 2+ Psych/Mental Status: Mental status NL, Mood NL Assessment/Plan Assessment/Plan Acute metabolic encephalopathy, likely due to pneumonia NSTEMI, likely type 2 Per [facility] records, Head CT scan shows atrophic changes with no acute intracranial abnormalities Per [facility] records, chest CT scan shows right-sided moderate pleural effusion with bilateral lower lobe consolidation with possible pneumonia/atelectasis Empiric antibiotic vancomycin, Zosyn and azithromycin Oxygen through nasal cannula Breathing treatment Fluid History of coronary artery disease History of CHF History of DM, Hb A1c was 6.0 on 05/29/2024 History of dyslipidemia History of hypertension History of aortic stenosis, status post TAVR 10 DIET: Cardiac diet DVT PROPHYLAXIS: Lovenox CODE STATUS: Goal of care discussed for more than 21 minutes, full code DISPOSITION: Med/surg Patient's status and paln discussed with the patient and the patient's sons at the bedside Case discussed with Dr. Gallegos. Plan discussed with: Patient, Other (RN) My Orders Orders - HAILEY SIMS Procedure Category Date Status Time Admit ADMIT 07/09/24 Verified Code Status CODE 07/09/24 Verified Review Orders With LIDIA 07/09/24 Verified Adm. : Npo (Nothing By DIET 07/09/24 Verified Mouth) Diet Breakfast Acetaminophen Tablet PHA 07/09/24 Verified (Tylenol Tablet) 01:30 Notify Of Changes [facility] 07/09/24 Verified From Base Advance Directive LIDIA 07/09/24 Verified : Urinalysis LAB 07/09/24 Verified : Blood Culture FABIOLA 07/09/24 Verified Urine Bacterial FABIOLA 07/09/24 Verified Culture 01:27 Patient Condition ORDERS 07/09/24 Verified 01:27 Date of Service: Jul 08, 2024 Billing Provider: EVY GALLEGOS MD Common Visit Codes: 45681-RIZZPVN INP/OBS CARE (HIGH) Secondary Visit Codes: 32226-VISXHEQB CARE PLAN 30 MINUTES BETHANYMARVINELAINE RESDIENT Jul 09, 2024 01:31 EVY GALLEGOS MD Jul 09, 2024 11:30
[2024-07-09 03:21] LABS: Urine Bacteria None Seen /hpf (None Seen)
[2024-07-09 03:41] LABS: Urine Blood TRACE /uL (Negative); Urine Clarity Clear (Clear); Urine Color Yellow (Yellow); Urine Protein, UAD 1+ (Negative); Urine Squamous Epithelial Cell MOD /hpf (<5); Urine Urobilinogen Normal (Negative); Urine WBC 3 /HPF (0-5)
[2024-07-09 03:43] LABS: Basophils # (auto) 0 10 ^3/uL (0-0.2); Basophils % (auto) 0.3 % (0.0-2.0); Eosinophils # (auto) 0 10 ^3/uL (0-0.8); Hematocrit 41.6 % (36.0-46.0); Hemoglobin 13.4 g/dL (12.2-16.2); Lymphocytes # (auto) 0.4 10 ^3/uL (0.4-5.4); Lymphocytes % (auto) 3.3 % (10.0-50.0); Mean Corpuscular Hemoglobin 30.3 pg (28.0-32.0); Mean Corpuscular Hgb Conc. 32.3 g/dL (32.0-36.0); Mean Corpuscular Volume 93.6 fL (80.0-100.0); Monocytes # (auto) 0.9 10 ^3/uL (0-1.3); Monocytes % (auto) 7.4 % (0.0-12.0); Neutrophils # (auto) 10.3 10 ^3/uL (1.6-8.6); Nucleated Red Blood Cells % 0.3 %; Platelet Count (auto) 117 10^3/uL (140-450); Red Blood Cells 4.44 10^6/uL (4.0-5.20); White Blood Cell 11.6 10^3/uL (4.4-10.8)
[2024-07-09 03:49] LABS: Alkaline Phosphatase 78 U/L (46-116); Anion Gap 8 (5-15); Aspartate Aminotransferase 28 U/L (13-40); BUN/Creatinine Ratio 39.8 (10.0-20.0); Calcium 8.9 mg/dL (8.7-10.4); Carbon Dioxide 28 mmol/L (20-31); Glucose 104 mg/dL (74-106); Magnesium 1.7 mg/dL (1.6-2.6); Potassium 3.9 mmol/L (3.5-5.1)
[2024-07-09 03:50] LABS: Bilirubin, Total 0.6 mg/dL (0.2-1.0)
[2024-07-09 03:59] LABS: Opiate Scree,Urine Neg (NEGATIVE)
[2024-07-09] MEDS ORDERED: VANCOMYCIN PER PHARMACY 0 MG IV SCH ×2 (04:00→04:15)
[2024-07-09] MEDS ORDERED: PIPERACILLIN-TAZOB 3.375GM 100 ML IV ONE (04:00)
[2024-07-09 04:01] LABS: INR 1.36 (0.9-1.15); Partial Thromboplastin Time 35.3 SEC (24.5-34.5)
[2024-07-09 04:14] LABS: Alanine Aminotransferase 51 U/L (7-40); Albumin 2.8 g/dL (3.2-4.8); Blood Urea Nitrogen 33 mg/dL (9-23); Chloride 111 mmol/L (98-107); Sodium 147 mmol/L (136-145); Total Protein 4.7 g/dL (5.7-8.2)
[2024-07-09] MEDS: ATORVASTATIN 20 MG TAB PO ONE (04:15)
[2024-07-09] MEDS: ASPirin 81 mg TAB PO ONE (04:15)
[2024-07-09 04:22] LABS: COVID19 ANTIGEN SOFIA FIA NEGATIVE (NEGATIVE); Rapid Influenza A Negative (Negative); Rapid Influenza B Negative (Negative)
[2024-07-09 04:25] LABS: Amphetamine Screen, Urine Neg (NEGATIVE); Barbiturate Scree,Urine Neg (NEGATIVE); Benzodiazephine Screen, Urine Neg (NEGATIVE); Cannabinoid Screen, Urine Neg (NEGATIVE); Cocaine Screen, Urine Neg (NEGATIVE); Phencyclidine Screen, Urine Neg (NEGATIVE)
[2024-07-09 04:47] LABS: Urine Specific Gravity > 1.050 (1.001-1.035)
[2024-07-09] MEDS: SODIUM CHLORIDE 0.9% 500 ML IV ONE (05:19)
[2024-07-09] MEDS: AZITHROMYCIN 500MG/ 250ML 250 ML IV ONE (05:53)
[2024-07-09] MEDS ORDERED: PIPERACILLIN-TAZOB 3.375GM 100 ML IV SCH ×2 (06:00→08:30)
[2024-07-09] MEDS: ALBUTEROL SULF 2.5 MG/0.5ML(0.5%) NEB SOLN NEB SCH (06:16)
[2024-07-09] MEDS: IPRATROPIUM BROM 0.5 MG/2.5ML INH SOL NEB SCH (06:17)
[2024-07-09] MEDS ORDERED: DOXYCYCLINE 100MG/100ML 100 ML IV SCH (07:15)
--- NOTE | 2024-07-09 07:21 | DVH ---
EXAM: XR Chest, 1 View CLINICAL INDICATION: Pneumonia TECHNIQUE: Frontal view of the chest. COMPARISON: XY CHEST PORTABLE on DOS: 06/22/24, XY CHEST PORTABLE on DOS: 06/02/24, XY CHEST PORTABLE on DOS: 05/29/24, XY CHEST PORTABLE on DOS: 05/28/24, XY CHEST PORTABLE on DOS: 01/23/24 FINDINGS: LUNGS AND PLEURAL SPACES: See below. HEART: Cardiomegaly with mild congestion. MEDIASTINUM: Unremarkable. Normal mediastinal contour. BONES/JOINTS: Unremarkable. No acute fracture. OTHER FINDINGS: . IMPRESSION: Cardiomegaly with mild congestion.
--- NOTE | 2024-07-09 08:45 | DVH ---
Bilateral Chest Sonogram Date: 07/09/2024 07:34 AM Clinical history: Pleural Effusion Technique: Limited sonographic evaluation of the bilateral chest was performed to evaluate for pleur al effusion. Finding/Impression: Trace bilateral pleural effusions insufficient for performance of thoracentesis.
[2024-07-09] MEDS: FUROSEMIDE 40 MG/4 ML VIAL IV ONE (09:03)
[2024-07-09] MEDS: MAGNESIUM SULFATE 1GM/100ML 100 ML IV ONE (09:07)
[2024-07-09] MEDS: ASPirin 81 mg TAB PO SCH (10:00)
[2024-07-09] MEDS ORDERED: VANCOMYCIN 1.5GM/300ML 300 ML IV ONE (10:15)
[2024-07-09] MEDS: PIPERACILLIN-TAZOB 3.375GM 100 ML IV SCH (10:51)
[2024-07-09] MEDS: ENOXAPARIN SOD 40 MG/0.4 ML SYRINGE SC SCH (10:52)
[2024-07-09] MEDS: DOXYCYCLINE 100MG/100ML 100 ML IV SCH (14:20)
--- NOTE | 2024-07-09 16:41 | DVHPNRES ---
Progress Note Date Seen: Jul 09, 2024 Resident Creating Document: ANTIONE SWANSON RESIDENT Medical Necessity Reason Pt with a Central, PICC or Fol: No Subjective Review of Systems This is an 83-year-old female who transferred for [facility], had admitted due to altered mental status. PMHx: coronary artery disease (status post 11 stents), CHF, aortic stenosis status post TAVR, COPD (on 4 L of oxygen at home), DM, dyslipidemia, hypertension, paroxysmal atrial fibrillation, pulmonary hypertension PSHx: Hysterectomy, tonsillectomy, aortic valve replacement, cataract surgery, Social history: Patient lives with the son at home (3 days back transferred to home from [facility]), uses walker at baseline for mobility, due to urinary incontinence uses diaper (but since last hospital admission she also has stool incontinence), current smoker (9 pack year history) denies any other drug use Home medication: Amiodarone, amlodipine, aspirin, atorvastatin, clopidogrel, furosemide, gabapentin, hydrocodone/acetaminophen, metformin, metoprolol, oxybutynin. Due to paroxysmal AFib, during last admission the patient and patient's son's were consulted for anticoagulant usage, but it was refused due to bleeding risk. Allergic history: No known allergies Per patient's son's, she has been altered since few days which has progressively worsened, and today found her next to the bed with possible mechanical fall. He also reports decreased oral intake, and generalized weakness. Per [facility] records, CT scan showed moderate right-sided pleural effusion with right and left lower lobe consolidation possibly due to pneumonia/atelectasis. She was discharged on 06/24/2024 from [facility], had admitted due to encephalopathy second-degree to UTI, since discharge the patient was not feeling good but progressively had worsened. On my initial assessment, patient was seen and examined at bedside. She currently states feeling well, denies any significant shortness of breath, chest pain, abdominal pain, dysuria, nausea, vomiting, diarrhea, constipation, dizziness, lightheadedness. Objective vital signs Vital Sign Date Time Temp Pulse Resp B/P (MAP) Pulse Ox O2 Delivery O2 Flow Rate FiO2 07/09/24 13:00 97.7 73 18 139/58 (85) 98 97.7 07/09/24 11:27 Nasal Cannula* 2 28 Total Intake and Output 07/08/24 07/08/2407/09/25 15:00 23:00 07:00 Intake Total 0 ml Output Total 350 ml Balance -350 ml medications Current Medications Medications Dose Ordered Sig/Keith Route Start Time Stop Time Status Last Admin Dose Admin Acetaminophen 650 mg Q6HP PRN PO 07/09/24 01:30 Acetaminophen/ Hydrocodone Bitart 1 tab Q4HP PRN PO 07/09/24 01:30 Ondansetron HCl 4 mg Q4HP PRN IV 07/09/24 01:30 Enoxaparin Sodium 40 mg DAILY SC 07/09/24 10:00 07/09/24 10:52 40 MG Vancomycin HCl 0 ml @ 0 mls/hr UD IV 07/09/24 04:15 Aspirin 81 mg DAILY PO 07/09/24 10:00 Atorvastatin Calcium 40 mg HS PO 07/09/24 22:00 Albuterol 2.5 mg Q6HWA [facility] 07/09/24 06:00 07/09/24 11:27 2.5 MG Ipratropium [place] 0.5 mg Q6HWA [facility] 07/09/24 06:00 07/09/24 11:27 0.5 MG Furosemide 40 mg BIDD IV 07/09/24 18:00 Doxycycline Hyclate 100 ml @ 50 mls/hr Q12H IV 07/09/24 14:30 07/09/24 14:20 50 MLS/HR Cefepime HCl 50 ml @ 12.5 mls/hr Q12HR IV 07/09/24 22:00 Examination Physical examination as below: General: Awake, alert, comfortable appearing, in no acute distress, A&OX2. HEENT: Head is normocephalic and atraumatic. Pupils are equal, round, and reactive to light. Extraocular muscles are intact. No nasal discharge. No facial trauma. Intraoral exam shows moist mucous membranes with no tonsillar enlargement or exudate. Neck: Supple with no cervical lymphadenopathy. Heart: Regular rate without murmur, rub, or gallop. Lungs: Bilateral mild-mod crackles Abdomen: No external sign of injury. Bowel sounds are present. Abdomen is soft, nontender. No rebound, no guarding, no rigidity. There are no palpable masses. There is no flank pain on exam. Extremities: Strong peripheral pulses. There is no clubbing, no cyanosis, and no edema. Skin: No rash. Neurologic: Cranial nerves II-XII intact without motor, sensory, or cerebellar deficit, no asterixis. A&OX2 laboratory and microbiology Laboratory Tests 07/09/24 03:05 Test 07/09/24 03:05 Range/Units Serum Glucose 104 74-106 mg/dL Microbiology Date/Time Source Procedure Growth Status 07/09/24 02:10 Nose MRSA Screen - Final Complete Labs and/or images reviewed: Labs reviewed by me, Image(s) reviewed by me Problem List/Assessment/Plan Problem List/Assessment/Plan Acute metabolic encephalopathy, likely due to underlying infection Pneumonia, gram (+) vs gram (-), atypicals Pleural effussion, bilateral, trace Sepsis due to above Thrombocytopenia due to above Moderate protein malnutrition Transaminitis NSTEMI, likely type 2 due to above Secondary coagulopathy History of coronary artery disease Acute on chronic systolic/diastolic CHF History of DM, Hb A1c was 6.0 on 05/29/2024 History of dyslipidemia History of hypertension History of aortic stenosis, status post TAVR 10 Plan: Continue cefepime IV Continue azithromycin IV Continue duonebs COVID and flu (-) Lasix 40mv 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 FULL CODE. Case was discussed with Dr. Gallegos Plan discussed with: Patient, Other (RN) My Orders My Orders Orders - ANTIONE SWANSON RESIDENT Procedure Category Date Status Time Furosemide Injection PHA 07/09/24 In Process (Lasix Injection) 18:00 Respiratory Culture FABIOLA 07/09/24 Logged W/ Gs 07:14 Doxycycline PHA 07/09/24 In Process 100mg/100ml 14:30 Full Liq Diet DIET 07/09/24 Transmitted Lunch Speech Pathologist LIDIA 07/09/24 In Process Eval: Swall 12:49 Cefepime 1gm/ 50ml PHA 07/09/24 In Process (Maxipime 1gm/50ml) 22:00 Notify Provider NOTICE 07/09/24 Transmitted Malnutrition 14:47 Nutritional NOURISH 07/09/24 Transmitted Supplements 14:47 Increase Calorie NOURISH 07/09/24 Transmitted Intake 14:47 Dietary NOTICE 07/09/24 Transmitted Recommendations 14:47 Cefepime 1gm/ 50ml PHA 07/09/24 In Process (Maxipime 1gm/50ml) 16:15 Dietary Evaluation Review Recommendations by RD: Increase Calorie Intake, Protein Supplementation Comments: Pt is suffering from severe acute malnutrition aeb wt loss 5.9kg/8.7% in 1 month together with severe muscle wasting and fat depletion. 1) Glucerna 240ml TID 2) VitC 200mg daily + MVI 1 tab daily 3) Advance diet as medically feasible 4) Continue current plan of care Expected Outcomes/Goals: Pt will meet >75% estimated needs Fu 3-5 days Interpretation of weight loss: >5% in 1 month Body Fat Depletion (Severe): Mod to Severe Depletion Muscle Mass (Severe): Mod to Severe Depletion Protein Calorie Malnutrition: Severe Is there a minimum of two crit: Yes Date of Service: Jul 09, 2024 Billing Provider: EVY GALLEGOS MD Common Visit Codes: [id number] INP/OBS CARE(HIGH) ANTIONE SWANSON RESIDENT Jul 09, 2024 16:41 EVY GALLEGOS MD Jul 10, 2024 11:14
[2024-07-09] MEDS: CEFEPIME 1GM/ 50ML 50 ML IV ONE (17:15)
[2024-07-09] MEDS: FUROSEMIDE 40 MG/4 ML VIAL IV SCH (18:29)
[2024-07-09] MEDS: ATORVASTATIN 20 MG TAB PO SCH (21:51)
[2024-07-09] MEDS: CEFEPIME 1GM/ 50ML 50 ML IV SCH (21:52)
[2024-07-09] MEDS: HYDROcodone-ACET 5/325MG TAB PO PRN (23:05)
[2024-07-10] VITALS (15 sets, daily range): BP systolic 94–136; BP diastolic 46–67; PULSE 61–85; RESP 16–20; TEMP 97.4–98.4; O2SAT 82–99
[2024-07-10] MEDS: PIPERACILLIN-TAZOB 3.375GM 100 ML IV ONE (05:32)
[2024-07-10 06:55] LABS: Alanine Aminotransferase 38 U/L (7-40); Alkaline Phosphatase 84 U/L (46-116); Anion Gap 6 (5-15); Aspartate Aminotransferase 22 U/L (13-40); BUN/Creatinine Ratio 26.3 (10.0-20.0); Basophils # (auto) 0 10 ^3/uL (0-0.2); Basophils % (auto) 0.3 % (0.0-2.0); Blood Urea Nitrogen 20 mg/dL (9-23); Calcium 8.8 mg/dL (8.7-10.4); Carbon Dioxide 30 mmol/L (20-31); Chloride 107 mmol/L (98-107); Eosinophils # (auto) 0 10 ^3/uL (0-0.8); Eosinophils % (auto) 0.2 % (0.0-7.0); Hematocrit 38.1 % (36.0-46.0); Hemoglobin 12.6 g/dL (12.2-16.2); Lymphocytes # (auto) 0.4 10 ^3/uL (0.4-5.4); Lymphocytes % (auto) 4.6 % (10.0-50.0); Magnesium 1.7 mg/dL (1.6-2.6); Mean Corpuscular Hemoglobin 30.9 pg (28.0-32.0); Mean Corpuscular Hgb Conc. 33.1 g/dL (32.0-36.0); Mean Corpuscular Volume 93.3 fL (80.0-100.0); Monocytes # (auto) 0.7 10 ^3/uL (0-1.3); Monocytes % (auto) 7.9 % (0.0-12.0); Neutrophils # (auto) 7.5 10 ^3/uL (1.6-8.6); Nucleated Red Blood Cells % 0.1 %; Red Blood Cells 4.09 10^6/uL (4.0-5.20); Red Cell Distribution Width 17.4 % (11.8-14.3); Sodium 143 mmol/L (136-145); White Blood Cell 8.6 10^3/uL (4.4-10.8)
[2024-07-10 06:56] LABS: Bilirubin, Total 0.7 mg/dL (0.2-1.0)
[2024-07-10 06:57] LABS: Albumin 2.8 g/dL (3.2-4.8); Glucose 118 mg/dL (74-106); Potassium 3.4 mmol/L (3.5-5.1); Total Protein 4.8 g/dL (5.7-8.2)
[2024-07-10 07:15] LABS: Platelet Count (auto) 133 10^3/uL (140-450)
[2024-07-10] MEDS ORDERED: VANCOMYCIN PER PHARMACY 0 MG IV SCH (08:00)
[2024-07-10] MEDS: VANCOMYCIN 1.5GM/300ML 300 ML IV ONE (10:00)
[2024-07-10] MEDS ORDERED: AZITHROMYCIN 500MG/ 250ML 250 ML IV SCH (10:00)
[2024-07-10] MEDS ORDERED: VANCOMYCIN 1GM/250ML KIT 250 ML IV SCH (10:00)
[2024-07-10] MEDS: MAGNESIUM OXIDE 400 MG TAB PO SCH (10:27)
[2024-07-10] MEDS: POTASSIUM CHL 20 Meq TABLET PO ONE (10:28)
--- NOTE | 2024-07-10 11:46 | DVHPNRES ---
Progress Note Date Seen: Jul 10, 2024 Resident Creating Document: ANTIONE SWANSON RESIDENT Medical Necessity Reason Pt with a Central, PICC or Fol: No Subjective Review of Systems patient was seen and examined at bedside. She currently states feeling well, denies any significant shortness of breath, chest pain, abdominal pain, dysuria, nausea, vomiting, diarrhea, constipation, dizziness, lightheadedness. Objective vital signs Vital Sign Date Time Temp Pulse Resp B/P (MAP) Pulse Ox O2 Delivery O2 Flow Rate FiO2 07/10/24 09:00 97.5 136/63 (87) 96 97.5 07/10/24 06:49 61 16 07/10/24 06:43 Nasal Cannula* 3 32 Total Intake and Output 07/09/24 07/09/24 07/10/24 15:00 23:00 07:00 Intake Total 200 ml 100 ml 1095 ml Output Total 1300 ml 375 ml Balance 200 ml -1200 ml 720 ml medications Current Medications Medications Dose Ordered Sig/Keith Route Start Time Stop Time Status Last Admin Dose Admin Acetaminophen 650 mg Q6HP PRN PO 07/09/24 01:30 Acetaminophen/ Hydrocodone Bitart 1 tab Q4HP PRN PO 07/09/24 01:30 07/09/24 23:05 1 TAB Ondansetron HCl 4 mg Q4HP PRN IV 07/09/24 01:30 Enoxaparin Sodium 40 mg DAILY SC 07/09/24 10:00 07/10/24 10:29 40 MG Aspirin 81 mg DAILY PO 07/09/24 10:00 07/10/24 10:27 81 MG Atorvastatin Calcium 40 mg HS PO 07/09/24 22:00 07/09/24 21:51 40 MG Albuterol 2.5 mg Q6HWA NEB 07/09/24 06:00 07/10/24 06:43 2.5 MG Ipratropium [place] 0.5 mg Q6HWA NEB 07/09/24 06:00 07/10/24 06:43 0.5 MG Furosemide 40 mg BIDD IV 07/09/24 18:00 07/10/24 05:43 40 MG Doxycycline Hyclate 100 ml @ 50 mls/hr Q12H IV 07/09/24 14:30 07/10/24 02:57 50 MLS/HR Cefepime HCl 50 ml @ 12.5 mls/hr Q12HR IV 07/09/24 22:00 07/10/24 10:24 12.5 MLS/HR Vancomycin HCl 0 ml @ 0 mls/hr UD IV 07/10/24 08:00 Magnesium Oxide 800 mg BID PO 07/10/24 10:00 07/10/24 10:27 800 MG Vancomycin HCl 250 ml @ 250 mls/hr DAILY IV 07/11/24 10:00 Examination Physical examination as below: General: Awake, alert, comfortable appearing, in no acute distress, A&OX2. HEENT: Head is normocephalic and atraumatic. Pupils are equal, round, and reactive to light. Extraocular muscles are intact. No nasal discharge. No facial trauma. Intraoral exam shows moist mucous membranes with no tonsillar enlargement or exudate. Neck: Supple with no cervical lymphadenopathy. Heart: Regular rate without murmur, rub, or gallop. Lungs: Bilateral mild-mod crackles Abdomen: No external sign of injury. Bowel sounds are present. Abdomen is soft, nontender. No rebound, no guarding, no rigidity. There are no palpable masses. There is no flank pain on exam. Extremities: Strong peripheral pulses. There is no clubbing, no cyanosis, and no edema. Skin: No rash. Neurologic: Cranial nerves II-XII intact without motor, sensory, or cerebellar deficit, no asterixis. A&OX2 laboratory and microbiology Laboratory Tests 07/10/24 05:02 Test 07/10/24 05:02 Range/Units Serum Glucose 118 H 74-106 mg/dL Microbiology Date/Time Source Procedure Growth Status 07/09/24 03:00 Blood Blood Culture - Preliminary Resulted 07/09/24 02:30 Voided Urine Urine Culture - Preliminary Resulted 07/09/24 02:10 Nose MRSA Screen - Final Complete Labs and/or images reviewed: Labs reviewed by me, Image(s) reviewed by me Problem List/Assessment/Plan Problem List/Assessment/Plan Acute metabolic encephalopathy, likely due to underlying infection Possible bacteremia Pneumonia, gram (+) vs gram (-), atypicals Pleural effussion, bilateral, trace Sepsis due to above Thrombocytopenia due to above Moderate protein malnutrition Transaminitis NSTEMI, likely type 2 due to above Secondary coagulopathy History of coronary artery disease Acute on chronic systolic/diastolic CHF History of DM, Hb A1c was 6.0 on 05/29/2024 History of dyslipidemia History of hypertension History of aortic stenosis, status post TAVR 10 Plan: Continue cefepime IV Continue azithromycin IV Stated vancomycin repeated blood cultures Continue duonebs q6 wa COVID and flu (-) 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 FULL CODE. Case was discussed with Dr. Gallegos Plan discussed with: Patient, Other (RN) My Orders My Orders Orders - ANTIONE SWANSON RESIDENT Procedure Category Date Status Time Full Liq Diet DIET 07/09/24 Transmitted Lunch Cefepime 1gm/ 50ml PHA 07/09/24 In Process (Maxipime 1gm/50ml) 22:00 Notify Provider NOTICE 07/09/24 Transmitted Malnutrition 14:47 Nutritional NOURISH 07/09/24 Transmitted Supplements 14:47 Increase Calorie NOURISH 07/09/24 Transmitted Intake 14:47 Dietary NOTICE 07/09/24 Transmitted Recommendations 14:47 Mechanical Soft Diet DIET 07/09/24 Transmitted Dinner Cover Wound With Foam LIDIA 07/09/24 In Process Dressing 14:48 Vancomycin Per PHA 07/10/24 In Process Pharmacy 08:00 Blood Culture FABIOLA 07/10/24 In Process 08:00 Magnesium Oxide PHA 07/10/24 In Process Tablet (Mag-Ox Tablet) 10:00 Vancomycin Per LIDIA 07/13/24 In Process Pharmacy Protoc 10:00 Vancomycin 1gm/250ml PHA 07/11/24 In Process Kit 10:00 Creatinine LAB 07/11/24 Verified 05:00 Pt Request For Service PT 07/10/24 Logged 11:20 Dietary Evaluation Review Recommendations by RD: Increase Calorie Intake, Protein Supplementation Comments: Pt is suffering from severe acute malnutrition aeb wt loss 5.9kg/8.7% in 1 month together with severe muscle wasting and fat depletion. 1) Glucerna 240ml TID 2) VitC 200mg daily + MVI 1 tab daily 3) Advance diet as medically feasible 4) Continue current plan of care Expected Outcomes/Goals: Pt will meet >75% estimated needs Fu 3-5 days Interpretation of weight loss: >5% in 1 month Body Fat Depletion (Severe): Mod to Severe Depletion Muscle Mass (Severe): Mod to Severe Depletion Protein Calorie Malnutrition: Severe Is there a minimum of two crit: Yes ANTIONE SWANSON RESIDENT Jul 10, 2024 11:46
--- NOTE | 2024-07-10 20:10 | DVHDSRES ---
Discharge Summary Date of Admission Resident Creating Document: ANTIONE SWANSON RESIDENT Jul 08, 2024 at 23:15 Date of Discharge: Jul 11, 2024 Admitting Diagnosis pneumonia Labs/Diagnostic Data: Laboratory Results Test 07/10/24 05:02 07/09/24 03:05 07/09/24 02:30 07/09/24 02:09 White Blood Count 8.6 10^3/uL (4.4-10.8) Red Blood Count 4.09 10^6/uL (4.0-5.20) Hemoglobin 12.6 g/dL (12.2-16.2) Hematocrit 38.1 % (36.0-46.0) Mean Corpuscular Volume 93.3 fL (80.0-100.0) Mean Corpuscular Hemoglobin 30.9 pg (28.0-32.0) Mean Corpuscular Hemoglobin Concent 33.1 g/dL (32.0-36.0) Red Cell Distribution Width 17.4 % (11.8-14.3) Platelet Count 133 10^3/uL (140-450) Mean Platelet Volume 8.3 fL (6.9-10.8) Neutrophils (%) (Auto) 87.0 % (37.0-80.0) Lymphocytes (%) (Auto) 4.6 % (10.0-50.0) Monocytes (%) (Auto) 7.9 % (0.0-12.0) Eosinophils (%) (Auto) 0.2 % (0.0-7.0) Basophils (%) (Auto) 0.3 % (0.0-2.0) Neutrophils # (Auto) 7.5 10 ^3/uL (1.6-8.6) Lymphocytes # (Auto) 0.4 10 ^3/uL (0.4-5.4) Monocytes # (Auto) 0.7 10 ^3/uL (0-1.3) Eosinophils # (Auto) 0 10 ^3/uL (0-0.8) Basophils # (Auto) 0 10 ^3/uL (0-0.2) Nucleated Red Blood Cells 0.1 % Sodium Level 143 mmol/L (136-145) Potassium Level 3.4 mmol/L (3.5-5.1) Chloride Level 107 mmol/L (98-107) Carbon Dioxide Level 30 mmol/L (20-31) Anion Gap 6 (5-15) Blood Urea Nitrogen 20 mg/dL (9-23) Creatinine 0.76 mg/dL (0.550-1.02) Glomerular Filtration Rate Calc 78 mL/min (>90) BUN/Creatinine Ratio 26.3 (10.0-20.0) Serum Glucose 118 mg/dL (74-106) Calcium Level 8.8 mg/dL (8.7-10.4) Magnesium Level 1.7 mg/dL (1.6-2.6) Total Bilirubin 0.7 mg/dL (0.2-1.0) Aspartate Amino Transferase (AST) 22 U/L (13-40) Alanine Aminotransferase (ALT) 38 U/L (7-40) Alkaline Phosphatase 84 U/L (46-116) Total Protein 4.8 g/dL (5.7-8.2) Albumin 2.8 g/dL (3.2-4.8) Prothrombin Time 14.0 sec (9.3-11.8) Prothrombin Time INR 1.36 (0.9-1.15) Activated Partial Thromboplast Time 35.3 SEC (24.5-34.5) Lactic Acid Level 1.2 mmol/L (0.4-2.0) B-Type Natriuretic Peptide 2717.59 pg/mL (0-100) Urine Color Yellow (Yellow) Urine Clarity Clear (Clear) Urine pH 6.0 (5.0-9.0) Urine Specific [place] > 1.050 (1.001-1.035) Urine Protein 1+ (Negative) Urine Ketones Negative (Negative) Urine Blood Trace /uL (Negative) Urine Nitrite Negative (Negative) Urine Bilirubin Negative (Negative) Urine Urobilinogen Normal mg/dL (Negative) Urine Leukocyte Esterase Negative /uL (Negative) Urine RBC 7 /hpf (0 - 4) Urine Microscopic WBC 3 /HPF (0-5) Urine Squamous Epithelial Cells Mod /hpf (<5) Urine Uric Acid Crystals Mod /hpf (None Seen) Urine Bacteria None seen /hpf (None Seen) Urine Glucose Normal mg/dL (Normal) Urine Opiates Screen Neg (NEGATIVE) Urine Fentanyl Screen Neg (NEGATIVE) Urine Barbiturates Screen Neg (NEGATIVE) Urine Phencyclidine Screen Neg (NEGATIVE) Urine Amphetamines Screen Neg (NEGATIVE) Urine Benzodiazepines Screen Neg (NEGATIVE) Urine Cocaine Screen Neg (NEGATIVE) Urine Cannabinoids Screen Neg (NEGATIVE) Influenza Type A Antigen Negative (Negative) Influenza Type B Antigen Negative (Negative) SARS-CoV-2 Antigen (Rapid) Negative (NEGATIVE) Test 07/09/24 01:38 Troponin I High Sensitivity 37 ng/L (</=34) Other Laboratory Tests 07/10/24 05:02 Brief Hx & Hospital Course: This is an 83-year-old female who transferred for [facility], had admitted due to altered mental status. PMHx: coronary artery disease (status post 11 stents), CHF, aortic stenosis status post TAVR, COPD (on 4 L of oxygen at home), DM, dyslipidemia, hypertension, paroxysmal atrial fibrillation, pulmonary hypertension PSHx: Hysterectomy, tonsillectomy, aortic valve replacement, cataract surgery, Social history: Patient lives with the son at home (3 days back transferred to home from [facility]), uses walker at baseline for mobility, due to urinary incontinence uses diaper (but since last hospital admission she also has stool incontinence), current smoker (9 pack year history) denies any other drug use Home medication: Amiodarone, amlodipine, aspirin, atorvastatin, clopidogrel, furosemide, gabapentin, hydrocodone/acetaminophen, metformin, metoprolol, oxybutynin. Due to paroxysmal AFib, during last admission the patient and patient's son's were consulted for anticoagulant usage, but it was refused due to bleeding risk. Allergic history: No known allergies Per patient's son's, she has been altered since few days which has progressively worsened, and today found her next to the bed with possible mechanical fall. He also reports decreased oral intake, and generalized weakness. Per [facility] records, CT scan showed moderate right-sided pleural effusion with right and left lower lobe consolidation possibly due to pneumonia/atelectasis. She was discharged on 06/24/2024 from [facility], had admitted due to encephalopathy second-degree to UTI, since discharge the patient was not feeling good but progressively had worsened. On my initial assessment, patient was seen and examined at bedside. She currently states feeling well, denies any significant shortness of breath, chest pain, abdominal pain, dysuria, nausea, vomiting, diarrhea, constipation, dizziness, lightheadedness. A chest ultrasound was performed which stated having small amount of pleural effusion not enough to perform a thoracentesis. Patient has had significant clinical improvement from admission. She received broad-spectrum antibiotics given pneumonia, a blood culture was positive for Gram-positive clusters patient later received vancomycin. Blood cultures were repeated. WBC count was within normal limits, no fevers no chills. Patient states feeling good, denied any significant complaint. She was alert and oriented x2-three. Patient kept receiving breathing treatments. She was able to tolerate soft diet. Physical examination as below: General: Awake, alert, comfortable appearing, in no acute distress, A&OX2. HEENT: Head is normocephalic and atraumatic. Pupils are equal, round, and reactive to light. Extraocular muscles are intact. No nasal discharge. No facial trauma. Intraoral exam shows moist mucous membranes with no tonsillar enlargement or exudate. Neck: Supple with no cervical lymphadenopathy. Heart: Regular rate without murmur, rub, or gallop. Lungs: Bilateral mild-mod crackles Abdomen: No external sign of injury. Bowel sounds are present. Abdomen is soft, nontender. No rebound, no guarding, no rigidity. There are no palpable masses. There is no flank pain on exam. Extremities: Strong peripheral pulses. There is no clubbing, no cyanosis, and no edema. Skin: No rash. Neurologic: Cranial nerves II-XII intact without motor, sensory, or cerebellar deficit, no asterixis. A&OX2 Patient will be discharge home with hospice, she will continue home medications as prescribed. She will be seen by hospice nurse on hospice Dr. we discussed comprehensively about what hospice is to patient's son, verbalized understanding and agree with the DC plan, we spent over 30 minutes explaining the plan. Case was discussed with Dr. Gallegos Operations or Procedures [place] [id number] Ph: [phone] DIAGNOSTIC IMAGING Diagnostic Imaging Report : [id number] Signed PATIENT: DUANE ROSEN ACCT: [id number] UNIT: [id number] : 1940 LOC: [facility] ROOM / BED: 0284T / B AGE / SEX: 83 / F ADM STATUS: ADM IN SERVICE 0345 ORDERING PHYSICIAN: HAILEY SIMS PROCEDURE(s): CXR1 - CHEST XRAY 1 VIEW REASON: Pneumonia ORDER NUMBER(s): [id number], ACCESSION NUMBER(s): [id number] EXAM: XR Chest, 1 View CLINICAL INDICATION: Pneumonia TECHNIQUE: Frontal view of the chest. COMPARISON: XY CHEST PORTABLE on DOS: 06/22/24, XY CHEST PORTABLE on DOS: 06/02/24, XY CHEST PORTABLE on DOS: 05/29/24, XY CHEST PORTABLE on DOS: 05/28/24, XY CHEST PORTABLE on DOS: 01/23/24 FINDINGS: LUNGS AND PLEURAL SPACES: See below. HEART: Cardiomegaly with mild congestion. MEDIASTINUM: Unremarkable. Normal mediastinal contour. BONES/JOINTS: Unremarkable. No acute fracture. OTHER FINDINGS: . IMPRESSION: Cardiomegaly with mild congestion. ATED BY: ZOILA PIÑA MD DICTATED DATE/TIME: 07/09/24718 SIGNED BY: ZOILA PIÑA MD SIGNED DATE/TIME: 07/09/24718 CC: [place] [address] Ph: [phone] DIAGNOSTIC IMAGING Diagnostic Imaging Report : [id number] Signed PATIENT: DUANE ROSEN ACCT: [id number] UNIT: [id number] : 1940 LOC: [facility] ROOM / BED: [address] [place] [address] AGE / SEX: 83 / F ADM STATUS: ADM IN SERVICE 4 ORDERING PHYSICIAN: HAILEY SIMS PROCEDURE(s): CHSTU - CHEST ULTRASOUND REASON: Pleural Effusion? ORDER NUMBER(s): [id number], ACCESSION NUMBER(s): [id number] Bilateral Chest Sonogram Date: 07/09/2024 07:34 AM Clinical history: Pleural Effusion Technique: Limited sonographic evaluation of the bilateral chest was performed to evaluate for pleural effusion. Finding/Impression: Trace bilateral pleural effusions insufficient for performance of thoracentesis. ATED BY: RAMESH MORENO MD DICTATED DATE/TIME: 07/09/24841 SIGNED BY: RAMESH MORENO MD SIGNED DATE/TIME: 03/27/25 0842 CC: Condition at Discharge: Guarded Final Diagnosis/Problems List Acute metabolic encephalopathy, likely due to underlying infection Pneumonia, gram (+) vs gram (-), atypicals Pleural effussion, bilateral, trace possible bacteremia Sepsis due to above Thrombocytopenia due to above Moderate protein malnutrition Transaminitis NSTEMI, likely type 2 due to above Secondary coagulopathy History of coronary artery disease Acute on chronic systolic/diastolic CHF History of DM, Hb A1c was 6.0 on 05/29/2024 History of dyslipidemia History of hypertension History of aortic stenosis, status post TAVR 10 Discharge Disposition: Hospice - Home Discharge Instruct/Medications Diet: Cardiac 2g Na,low cholest Activity: No Restrictions, As Tolerated Follow Up/Referral: fu with pcp in 1-2 weeks Medications: continue meds as prescribed Discharge Statement: "Patient was advised to return to the ER or call 911 if any headaches, dizziness, shortness of breath, chest pain, abdominal pain, bleeding, fevers, or worsening of medical condition. Patient was counseled about treatment plan, medications, possible side effects, patientverbalized understanding. All questions were answered to the best of my ability. This discharge took greater then 30 minutes in planning, reviewing documentation, counseling the patient, and discussing with other team members." ASSESSMENT ASSESSMENT Assessment pneumonia Date of Service: Jul 10, 2024 Billing Provider: EVY GALLEGOS MD Common Visit Codes: [id number] DISCH DAY >30min ANTIONE SWANSON RESIDENT Jul 10, 2024 20:10 EVY GALLEGOS MD Jul 12, 2024 08:57
[2024-07-10] MEDS ORDERED: LEVO500T91 PO (20:12)
[2024-07-11 05:00] VITALS: BP 122/63; PULSE 82; RESP 18; TEMP 98.6; O2SAT 100
[2024-07-11 07:12] VITALS: PULSE 77; RESP 18; O2SAT 97
[2024-07-11 07:18] VITALS: PULSE 78; RESP 18; O2SAT 99
[2024-07-11 07:34] LABS: Anion Gap 8 (5-15); Calcium 9.1 mg/dL (8.7-10.4); Carbon Dioxide 25 mmol/L (20-31)
[2024-07-11 07:36] LABS: Chloride 109 mmol/L (98-107); Potassium 4.2 mmol/L (3.5-5.1); Sodium 142 mmol/L (136-145)
[2024-07-11 07:39] LABS: BUN/Creatinine Ratio 24.6 (10.0-20.0); Blood Urea Nitrogen 17 mg/dL (9-23); Magnesium 1.6 mg/dL (1.6-2.6)
[2024-07-11 07:42] LABS: Glucose 128 mg/dL (74-106)
[2024-07-11 08:00] VITALS: PULSE 78
[2024-07-11 09:00] VITALS: BP 156/60; PULSE 77; RESP 16; TEMP 97.7; O2SAT 94
[2024-07-11] MEDS: VANCOMYCIN 1GM/250ML KIT 250 ML IV SCH (09:48)
[2024-07-11 10:00] VITALS: O2SAT 95
--- NOTE | 2024-07-11 12:33 | DVHPN2 ---
Subjective Patient is being discharged on hospice Reviewed: Care Plan, H&P, Labs, Medications, Previous Orders, Radiology Changes from previous H/P or p: No Changes Objective Vitals Vital Signs Date Time Temp Pulse Resp B/P (MAP) Pulse Ox O2 Delivery O2 Flow Rate FiO2 07/11/24 10:00 95 Nasal Cannula* 2 28 07/11/24 09:00 97.7 77 16 156/60 (92) 97.7 Intake/Output Intake and Output 07/11/24 07:00 Intake Total 825 ml Output Total 500 ml Balance 325 ml Intake Oral 650 ml IV Total 175 ml Output Urine Total 500 ml # Bowel Movements 1 General Appearance: Other (Awake and comfortable) Laboratory Results Laboratory Tests 07/10/24 05:02 07/11/24 06:21 Chemistry Test 07/11/24 06:21 Calcium Level 9.1 mg/dL (8.7-10.4) Magnesium Level 1.6 mg/dL (1.6-2.6) Urinalysis Test 07/09/24 02:30 Urine Color Yellow (Yellow) Urine Clarity Clear (Clear) Urine pH 6.0 (5.0-9.0) Urine Specific [place] > 1.050 (1.001-1.035) Urine Protein 1+ (Negative) H Urine Ketones Negative (Negative) Urine Blood Trace /uL (Negative) H Urine Nitrite Negative (Negative) Urine Bilirubin Negative (Negative) Urine Urobilinogen Normal mg/dL (Negative) Urine Leukocyte Esterase Negative /uL (Negative) Urine RBC 7 /hpf (0 - 4) Urine Microscopic WBC 3 /HPF (0-5) Urine Squamous Epithelial Cells Mod /hpf (<5) Urine Uric Acid Crystals Mod /hpf (None Seen) Urine Bacteria None seen /hpf (None Seen) Urine Glucose Normal mg/dL (Normal) Microbiology Microbiology Date/Time Source Procedure Growth Status 07/10/24 10:03 Blood Blood Culture - Preliminary NO GROWTH AFTER 24 HOURS OF INCUBATION. Resulted 07/09/24 02:30 Voided Urine Urine Culture - Final Complete 07/09/24 02:10 Nose MRSA Screen - Final Complete Assessment/Plan Assessment/Plan Encephalopathy Pneumonia Sepsis Non-STEMI Coronary artery disease Heart failure Diabetes Hypertension Dyslipidemia History of aortic stenosis status post TAVR Plan: Continue with the plan of discharge on hospice Plan discussed with: Other (Nursing) Date of Service: Jul 11, 2024 Billing Provider: YADIRA MAY MD Common Visit Codes: [id number] INP/OBS CARE(MOD) YADIRA MAY MD Jul 11, 2024 12:33
== END 2024-07-11 12:00 | disposition hospice, home (50) | DRG 871 ==
LOC: TELE-WESTW 23:15
PROVIDERS: ADMIT Internal Medicine; ATTEND Internal Medicine
DX: A41.59 Other Gram-negative sepsis (principal); G93.41 Metabolic encephalopathy; J15.69 Pneumonia due to other Gram-negative bacteria; I21.A1 Myocardial infarction type 2; I50.43 Acute on chronic combined systolic (congestive) and diastolic (congestive) heart failure; J15.9 Unspecified bacterial pneumonia; E44.0 Moderate protein-calorie malnutrition; D68.9 Coagulation defect, unspecified; Z51.5 Encounter for palliative care; I11.0 Hypertensive heart disease with heart failure; I25.10 Atherosclerotic heart disease of native coronary artery without angina pectoris; E78.5 Hyperlipidemia, unspecified; E11.9 Type 2 diabetes mellitus without complications; I48.0 Paroxysmal atrial fibrillation; Z95.2 Presence of prosthetic heart valve; D69.59 Other secondary thrombocytopenia; Z86.79 Personal history of other diseases of the circulatory system; Z79.899 Other long term (current) drug therapy; Z68.22 Body mass index [BMI] 22.0-22.9, adult
CPT/HCPCS: 36415; 71045; 76604; 80048; 80053; 80307; 81001; 83605; 83735; 83880; 84484; 85025; 85610; 85730; 87040; 87077; 87081; 87086; 87186; 87426; 87804; 93005; 94640; 97163; G0378; J2543